=== PATIENT | female | born 1955 | race Caucasian/White ===

== ENCOUNTER 2020-10-27 06:56 | Inpatient (IN) | payer MEDICAID ==
[2020-10-27] VITALS (8 sets, daily range): BP systolic 120–157; BP diastolic 62–84
[~2020-10-27] VITALS: Ht 165.1 cm; Wt 107.0 kg
[~2020-10-27 06:56] MED LIST: ACET1TAB55; ALEN35TA54 PO; HYDR12.55 PO; LR 1,000 ML IV ONE; MULT1CAP3 PO; OMEP-218 PO; ceFAZolin SOD 2 GM in IV 1 EA IV ONE
--- OUTSIDE RECORDS SUMMARY | 2020-10-27 07:04 | CCD ---
Author Author [facility] er Organization [facility] er Address Unknown Phone Unavailable Care Team Providers Care Gage Maker Name Role Phone Marielle Salgado Unavailable PROBLEMS Type Condition ICD9-CM Code ONT11-TQ Code Onset Dates Condition S tatus SNOMED Code Notes Problem Malignant neoplasm of breast (female) C50.919 Ac tive 796272290 Problem Duodenitis without mention of hemorrhage K29.80 Active 39174707 Problem Essential hypertension I10 Active 17161393 Problem Morbid obesity E66.01 Active 886628711 Problem Carpal tunnel syndrome G56.00 Active 57251815 Problem Esophageal reflux K21.9 Active 853493087 Problem Hyperlipidemia E78.5 Active 99539596 Problem Lumbago M54.5 Active 997762150 Problem Vitamin D deficiency E55.9 Active 89281234 Problem PRASANTH (obstructive sleep apnea) G47.33 Active 78 920474 Problem Obesity E66.9 Active 471116650 Problem Adnexal cyst N94.9 Active 20831895282663 Problem Venous insufficiency of both lower extremities I87 .2 Active 353882474 Problem 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 Active 3675196 01 Problem Right kidney mass N28.89 Active 318050644 Problem Anxiety F41.9 Active 81611820 Problem Primary localized osteoarthrosis, lower leg M17.10 Active 602600949 Problem Primary osteoarthritis of left knee M17.12 Acti ve 093896181497670 Problem History of total left knee replacement Z96.652 Active 7908998665907980 Problem Right adrenal mass E27.8 Active 9951625584198 9106 Problem Right renal mass N28.89 Active 661156109 ALLERGIES No Known Allergies ENCOUNTERS from 1955 to 2020-10-22 Encounter Location Date Provider Diagnosis [place] [address] [address] Oct, Marielle Salgado Pre-op evaluation Z01.818 ; Right renal mass N28.89 ; Essential hypertension I10 and PRASANTH (obstructive sleep apnea) G47.33 IMMUNIZATIONS Vaccine Route Administration Date Status Influenza (Afluria/Fluvirin 3+ yrs) <18 yrs Unknown Jul 12, 2019 Administered SOCIAL HISTORY Tobacco Use: Social History Observation Description Date Details (start date - stop date) Never Smoker Sex Assigned At : Social History Observation Description Sex Assigned At Unknown Alcohol Screen (Audit-C) Question Answer Notes Did you have a drink containing alcohol in the past year? No Points 0 Interpretation Negative DAST-10 Question Answer Notes Total Score: 0 Interpretation: No problems reported Tobacco Use/Smoking Question Answer Notes Patient is a never smoker Tobacco use other than smoking: Question Answer Notes Are you an other tobacco user? No REASON FOR REFERRAL No Information VITAL SIGNS Height 63 in Oct, Weight 234 lbs Oct, Weight-kg 106.14 kg Oct, BMI 41.45 kg/m2 Oct, Temperature 97.8 degrees Fahrenheit Oct, Heart Rate 83 /min Oct, Respiratory Rate 18 /min Oct, Oximetry 98 % Oct, Blood pressure systolic 138 mm Hg Oct, Blood pressure diastolic 78 mm Hg Oct, MEDICATIONS Medication SIG (Take, Route, Frequency, Duration) Notes Start Da te End Date Status Calcium 600 600 MG 2 tablets Orally daily Active Alendronate Sodium 35 MG 1 tablet 30 minutes before t he first food, beverage or medicine of the day with plain water Orally for 30 day(s) Active Bipap as directed DX: PRASANTH BIPAP gaxiola pplies, F Face Mask, Nasal Mask, Headgear, Cushions, Filters and Tubing for 30 days Apr, Active Tylenol 325 MG 2 tablets as needed Orally every 4 hrs Not-Taking [place]-3 Fish Oil Concentrate [address] Oral 2 ( two) Capsule DR two times daily for 30 Oct, Active Vitamin D3 1000 UNIT 2 tablets Orally Once a day Active Multivitamin Adult - Orally Acti ve Omeprazole 20 MG 1 capsule 30 minutes before morning meal Orally twice a day for 30 days Active Hydrochlorothiazide 12.5 MG 1 tablet in the morning Or ally Once a day for 30 days Active PROCEDURES No Information RESULTS No Results REASON FOR VISIT PREOP RIGHT ROBOTIC NEPHRO -CBC BNP PT/PTT MEDICAL (GENERAL) HISTORY Type Description Date Medical History Esophageal reflux Medical History Obesity Medical History Hyperlipidemia Medical History Malignant neoplasm of breast (female) Medical History Disturbance of skin sensation Medical History Noninfectious lymphedema Medical History Carpal tunnel syndrome Medical History Duodenitis without mention of hemorrhage Medical History Pain in joint, lower leg Medical History Primary localized osteoarthrosis, lower leg Medical History Urinary tract infection Medical History Abnormal mammogram Medical History Viral infection Medical History Essential hypertension Medical History Lumbago Medical History Disorder of bone, unspecified Medical History Morbid obesity Medical History Abnormal glucose Medical History Anxiety Surgical History Hernia Repair Surgical History Breast Biopsy - Right :multiple biopsy, (+) malignancy Surgical History Tubal Ligation Surgical History Cholecystectomy Surgical History Carpal Tunnel Surgery - Right Surgical History Lumpectomy :right breast Surgical History Appendectomy Surgical History l knee replacement 08/25/2020 Hospitalization History [facility] ER fall 08/22/17 Hospitalization History [place] admit-surgery 08/25/2020 Goals Section No Information Health Concerns No Information MEDICAL EQUIPMENT No Information MENTAL STATUS No Information FUNCTIONAL STATUS No Information ASSESSMENTS Encounter Date Diagnosis Assessment Notes Treatment Notes Treatm ent Clinical Notes Oct, Pre-op evaluation (ICD-10 - Z01.818) Labs completed 10/20/20 and reviewed. CBC, BMP, PT/PTT unremarkable. EKG completed 08/14/2020, which was reviewed and shows normal sinus rhythm, rate of 70. Pending physician review, patient is medically optimized to proceed with proposed robotic nephrectomy. MD ASSESSMENT:- All labs and investigative studies reviewed. Patient is medically optimized to proceed with proposed surgery stated above by DESIRE. No further cardiac intervention is required at this time. Oct, Right renal mass (ICD-10 - N28.89) She is scheduled for right robotic nephrectomy on 10/27/[address]ro at [facility] Oct, Essential hypertension (ICD-10 - I10) Stable. Continue current treatment regimen. Oct, PRASANTH (obstructive sleep apnea) (ICD-10 - G47.33) Stable. Compliant with nightly use of CPAP with good effect Oct, Araseli frankel cribing the following service for ANTONIO Moreno on 10/21/2020 PLAN OF TREATMENT Treatment Notes Assessment Notes Clinical Notes Pre-op evaluation Labs completed 1 and reviewed. CBC, BMP, PT/PTT unremarkable. EKG completed 08/14/2020, which was reviewed and shows normal sinus rhythm, rate of 70. Pending physician review, patient is medically optimized to proceed with proposed robotic nephrectomy.MD ASSESSMENT:- All labs and investigative studies reviewed. Patient is medically optimized to proceed with proposed surgery stated above by DESIRE. No further cardiac intervention is required at this time. Right renal mass She is scheduled for right robotic nephrectomy on 10/27/[address]ro at [facility] Essential hypertension Stable. Continue current treatment regimen. PRASANTH (obstructive sleep apnea) Stable. Co mpliant with nightly use of CPAP with good effect Next Appt Details prn Reason: Provider Name:Glenn Easton, 2020-11-19 11:10:00 AM, [address] [facility], [address], [place], [address], Provider Name:Kairna Dia, 2020-11-16 6 10:30:00 AM, [address] [facility], [address], [place], [address], Insurance Providers Payer Name Payer Address Payer Phone Insured Name Patient Relati onship to Insured Coverage Start Date Coverage End Date Medicaid [address] [facility] [id number] TAL MCNALLY
--- OUTSIDE RECORDS SUMMARY | 2020-10-27 07:04 | CCD ---
Author Author [facility] Organization [facility] [employer] [facility] Address Unknown Phone Unavailable Care Team Providers Care Ribbing Machine Operator Name Role Phone Reese Guerrero Unavailable PROBLEMS Type Condition ICD9-CM Code [id number] Code Onset Dates Condition S tatus SNOMED Code Notes Problem Renal mass N28.89 Active 773817384 Problem Preop testing Z01.818 Active 906218456 ALLERGIES No Known Allergies ENCOUNTERS from 1955 to 2020-10-13 Encounter Location Date Provider Diagnosis [facility] Urology [address] [place] [address] Sep Reese Cesar Preop testing Z01.818 and Renal mass N28 .89 IMMUNIZATIONS No Information SOCIAL HISTORY Tobacco Use: Social History Observation Description Date Details (start date - stop date) Never Smoker Sex Assigned At : Social History Observation Description Sex Assigned At Unknown Language: Question Answer Notes Languages spoken: Maltese Cheondoism: Question Answer Notes Cheondoism No mu-ism beliefs that would impact health care. Alcohol Screening: Question Answer Notes Did you have a drink containing alcohol in the past year? No Points 0 Interpretation Negative Tobacco Use: Question Answer Notes Are you a: never smoker REASON FOR REFERRAL No Information VITAL SIGNS No information MEDICATIONS Medication SIG (Take, Route, Frequency, Duration) Notes Start Da te End Date Status Calcium 500 MG 2 tablet with meals Orally Daily Active Omeprazole 20 MG 1 capsule 30 minutes before morning meal Orally Once a day for 30 day(s) Active Tylenol 325 MG 1 tablet as needed Orally every 4 hrs Active [place] 3 1000 MG 1 capsule Orally Once a day for 30 day(s) Active Hydrochlorothiazide 12.5 MG 1 capsule in the morning O rally Once a day for 30 day(s) Active Vitamin D-3 25 MCG (1000 UT) 1 capsule Orally Once a day for 30 day(s ) Active Multivitamin Adults - as directed Orally Active Aspirin Adult Low Dose 81 MG 1 tablet Orally Once a day for 30 day(s) Active PROCEDURES No Information RESULTS No Results REASON FOR VISIT COVID Test MEDICAL (GENERAL) HISTORY Type Description Date Medical History gerd Medical History obesity Medical History hyperlipidemia Medical History malignant neoplasm of breast Medical History disturbance of skin sensation Medical History noninfectious lymphedema Medical History carpal tunnel syndrome Medical History duodentis without mention of hemorrhage Medical History pain in joint lower leg Medical History osteoarthrits lower leg Medical History uti Medical History abnormal mammograms Medical History htn Medical History lumbago Medical History vitamin d deficiency Medical History anxiety Surgical History hernia repair Surgical History breat biopsy- right multiple biopsy plus malignancy Surgical History tubal ligation Surgical History cholecystecomy Surgical History carpal tunnel sx right Surgical History lumpectomy Surgical History appendectomy Surgical History knee replacement left 08/2020 Hospitalization History surgery related Goals Section No Information Health Concerns No Information MEDICAL EQUIPMENT No Information MENTAL STATUS No Information FUNCTIONAL STATUS No Information ASSESSMENTS Encounter Date Diagnosis Assessment Notes Treatment Notes Treatm ent Clinical Notes Sep, Preop testing (ICD-10 - Z01.818) Sep, Renal mass (ICD-10 - N28.89) PLAN OF TREATMENT Treatment Notes Test Name Order Date COVID-19 (SARS-CoV-2) IgG Antibody Test 2020-10-13 Next Appt Details Provider Name:Reese Kirk Cesar, 02:15:00 PM, [address], [place], [address], Insurance Providers Payer Name Payer Address Payer Phone Insured Name Patient Relati onship to Insured Coverage Start Date Coverage End Date MEDICAID [employer] [address] [facility] [id number] DANNIELLE RODRÍGUEZ self
--- OUTSIDE RECORDS SUMMARY | 2020-10-27 07:04 | CCD ---
Author Author [facility] Organization [facility] [email or web address] [facility] Address Unknown Phone Unavailable Care Team Providers Care Engineering Secretary Name Role Phone Reese Guerrero Unavailable PROBLEMS Type Condition ICD9-CM Code LBO67-RD Code Onset Dates Condition S tatus SNOMED Code Notes Problem Renal mass N28.89 Active 649120194 Problem Preop testing Z01.818 Active 991721569 ALLERGIES No Known Allergies ENCOUNTERS from 1955 to 2020-10-13 Encounter Location Date Provider Diagnosis [facility] Urology [address] [place] [address] Sep Reese Cesar Preop testing Z01.818 and Renal mass N28 .89 IMMUNIZATIONS No Information SOCIAL HISTORY Tobacco Use: Social History Observation Description Date Details (start date - stop date) Never Smoker Sex Assigned At : Social History Observation Description Sex Assigned At Unknown Language: Question Answer Notes Languages spoken: Mosotho Temple: Question Answer Notes Temple No zoroastrianism beliefs that would impact health care. Alcohol [...] as needed Orally every 4 hrs Active [place] 3 1000 MG 1 capsule Orally Once [...] RESULTS No Results REASON FOR VISIT COVID test MEDICAL (GENERAL) HISTORY Type Description Date Medical [...] TREATMENT Treatment Notes Test Name Order Date Coronavirus 2019 Nasopharygeal (Send Out) COVID 2019-10 229 Next Appt Details Provider Name:Reese Kirk Cesar, 02:15:00 PM, [address], [place], [address], Insurance Providers Payer Name Payer Address Payer Phone Insured Name Patient Relati onship to Insured Coverage Start Date Coverage End Date MEDICAID [place] [address] [facility] [id number] DANNIELLE RODRÍGUEZ self
--- OUTSIDE RECORDS SUMMARY | 2020-10-27 07:04 | CCD ---
Author Author [facility] er Organization [facility] er Address Unknown Phone Unavailable Care Team Providers Care Assisted Living Manager Name Role Phone Glenn Easton Unavailable PROBLEMS Type Condition ICD9-CM Code [id number] Code Onset Dates Condition S tatus SNOMED Code Notes Problem Duodenitis without mention of hemorrhage K29.80 Active 80438583 Problem Primary localized osteoarthrosis, lower leg M17.10 Active 135664263 Problem Morbid obesity E66.01 Active 622154432 Problem Malignant neoplasm of breast (female) C50.919 Ac tive 818076147 Problem Esophageal reflux K21.9 Active 683069766 Problem Essential hypertension I10 Active 72289427 Problem Lumbago M54.5 Active 095047906 Problem Carpal tunnel syndrome G56.00 Active 65685989 Problem Venous insufficiency of both lower extremities I87 .2 Active 107150597 Problem Vitamin D deficiency E55.9 Active 97573755 Problem PRASANTH (obstructive sleep apnea) G47.33 Active 78 458300 Problem Adnexal cyst N94.9 Active 06912686890864 Problem Anxiety F41.9 Active 91541721 Problem Right renal mass N28.89 Active 245643092 Problem Hyperlipidemia E78.5 Active 95441507 Problem 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 Active 9337710 01 Problem Obesity E66.9 Active 132625887 Problem Primary osteoarthritis of left knee M17.12 Acti ve 719573755918344 Problem History of total left knee replacement Z96.652 Active 7508777634335158 Problem Right adrenal mass E27.8 Active 3299898550429 9106 ALLERGIES No Known Allergies ENCOUNTERS from 1955 to 2020-10-12 Encounter Location Date Provider Diagnosis [facility] [address] [facility] [address] [place] [address] Sep, Glenn Easton IMMUNIZATIONS Vaccine Route Administration Date Status Influenza [...] Notes Start Da te End Date Status Bipap as directed DX: PRASANTH BIPAP gaxiola pplies, F Face Mask, Nasal Mask, Headgear, Cushions, Filters and Tubing for 30 days Apr, Active Hydrochlorothiazide 12.5 MG 1 tablet in the morning Or ally Once a day for 30 days Active Omeprazole 20 MG 1 capsule 30 minutes before morning meal Orally twice a day for 30 days Active [place]-3 Fish Oil Concentrate [address] Oral 2 ( two) Capsule DR two times daily for 30 Oct, Active Multivitamin Adult - Orally Acti ve Vitamin D3 1000 UNIT 2 tablets Orally Once a day Active Tylenol 325 MG 2 tablets as needed Orally every 4 hrs Active Calcium 600 600 MG 2 tablets Orally daily Active PROCEDURES No Information RESULTS No Results REASON FOR VISIT No Information MEDICAL (GENERAL) HISTORY Type Description Date Medical [...] History l knee replacement 08/25/2020 Hospitalization History [facility] ER fall 08/22/17 Hospitalization History [place] admit-surgery 08/25/2020 Goals Section No Information Health Concerns No Information MEDICAL EQUIPMENT No Information MENTAL STATUS No Information FUNCTIONAL STATUS No Information ASSESSMENTS No Information PLAN OF TREATMENT Next Appt Details Provider Name:Glenn Easton, 2020-11-19 11:10:00 AM, [address] [facility], [address], [place], [address], Insurance Providers Payer Name Payer Address Payer Phone Insured Name Patient Relati onship to Insured Coverage Start Date Coverage End Date Medicaid [address] [facility] [id number] TAL MCNALLY self
--- OUTSIDE RECORDS SUMMARY | 2020-10-27 07:05 | CCD ---
Author Author [facility] er Organization [facility] er Address Unknown Phone Unavailable Care Team Providers Care Ingot Buggy Operator Name Role Phone Glenn Easton Unavailable PROBLEMS Type Condition ICD9-CM Code AAL87-FD Code Onset Dates Condition S tatus SNOMED Code Notes Problem Duodenitis without mention of hemorrhage K29.80 Active 56454491 Problem Primary localized osteoarthrosis, lower leg M17.10 Active 263890904 Problem Morbid obesity E66.01 Active 394861175 Problem Malignant neoplasm of breast (female) C50.919 Ac tive 473372757 Problem Esophageal reflux K21.9 Active 931612080 Problem Essential hypertension I10 Active 80620864 Problem Lumbago M54.5 Active 665748922 Problem Carpal tunnel syndrome G56.00 Active 58922283 Problem Venous insufficiency of both lower extremities I87 .2 Active 880016589 Problem Vitamin D deficiency E55.9 Active 80498095 Problem PRASANTH (obstructive sleep apnea) G47.33 Active 78 599440 Problem Adnexal cyst N94.9 Active 34311938284548 Problem Anxiety F41.9 Active 59950077 Problem Right renal mass N28.89 Active 722432133 Problem Hyperlipidemia E78.5 Active 21290738 Problem 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 Active 8021149 01 Problem Obesity E66.9 Active 450849888 Problem Primary osteoarthritis of left knee M17.12 Acti ve 604999448244514 Problem History of total left knee replacement Z96.652 Active 8828718682761721 Problem Right adrenal mass E27.8 Active 4108995958756 9106 ALLERGIES No Known Allergies ENCOUNTERS from 1955 to 2020-10-12 Encounter Location Date Provider Diagnosis [facility] [address] [facility] [address] [place] [address] Sep, Glenn Easton History of total left knee r eplacement Z96.652 IMMUNIZATIONS Vaccine Route Administration Date Status Influenza [...] No Information VITAL SIGNS Height 63 in Sep, Weight 236 lbs Sep, BMI 41.80 kg/m2 Sep, Temperature 97.7 degrees Fahrenheit Sep, Heart Rate 82 /min Sep, Respiratory Rate 18 /min Sep, Oximetry 99 % Sep, Blood pressure systolic 120 mm Hg Sep, Blood pressure diastolic 60 mm Hg Sep, MEDICATIONS Medication SIG (Take, Route, Frequency, Duration) [...] twice a day for 30 days Active [place]-3 Fish Oil Concentrate [address] Oral [...] Information RESULTS No Results REASON FOR VISIT S/p L TKA, has been following in [facility] MEDICAL (GENERAL) HISTORY Type Description Date Medical [...] History l knee replacement 08/25/2020 Hospitalization History [facility] ER fall 08/22/17 Hospitalization History [place] admit-surgery 08/25/2020 Goals Section No Information Health Concerns No Information MEDICAL EQUIPMENT No Information MENTAL STATUS No Information FUNCTIONAL STATUS No Information ASSESSMENTS Encounter Date Diagnosis Assessment Notes Treatment Notes Treatm ent Clinical Notes Sep, History of total left knee replacement (ICD-10 - Z96.652) PLAN OF TREATMENT Treatment Notes Test Name Order Date X Ray Knee Complete 2020-10-12 Next Appt Details Provider Name:Glenn Rustam 2020-11-19 11:10:00 AM, [address] [facility], [address], [place], [address], Insurance Providers Payer Name Payer Address Payer Phone Insured Name Patient Relati onship to Insured Coverage Start Date Coverage End Date Medicaid [address] [facility] [id number] TAL MCNALLY
--- OUTSIDE RECORDS SUMMARY | 2020-10-27 07:05 | CCD ---
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 Active 8770968 01 Problem Malignant neoplasm of breast (female) C50.919 Ac tive 010606259 Problem Duodenitis without mention of hemorrhage K29.80 Active 72136523 Problem Essential hypertension I10 Active 40331788 Problem Morbid obesity E66.01 Active 518399594 Problem Carpal tunnel syndrome G56.00 Active 77002580 Problem Esophageal reflux K21.9 Active 537941273 Problem Anxiety F41.9 Active 67381199 Problem Venous insufficiency of both lower extremities I87 .2 Active 050330477 Problem Vitamin D deficiency E55.9 Active 21758801 Problem Adnexal cyst N94.9 Active 31824560243533 Problem Hyperlipidemia E78.5 Active 78829974 Problem Right renal mass N28.89 Active 613357442 Problem Lumbago M54.5 Active 941708960 Problem PRASANTH (obstructive sleep apnea) G47.33 Active 78 859559 Problem Obesity E66.9 Active 484069727 Problem Primary osteoarthritis of left knee M17.12 Acti ve 905623283375347 Problem Right adrenal mass E27.8 Active 1907885049741 9106 ALLERGIES No Known Allergies ENCOUNTERS from 1955 to 2020-09-19 Encounter Location Date Provider Diagnosis [facility] Medicine [address] [facility] [address] [place] [address] Sep, Marielle Salgado IMMUNIZATIONS Vaccine Route Administration Date Status Influenza [...] Notes Start Da te End Date Status Hydrochlorothiazide 12.5 MG 1 tablet in the morning Or ally Once a day for 30 days Active Multivitamin Adult - Orally Acti ve [place]-3 Fish Oil Concentrate [address] Oral 2 ( two) Capsule DR two times daily for 30 Oct, Active Aspirin Adult Low Strength 81 MG 1 tablet Orally Once a day for 30 da y(s) Active Vitamin D3 1000 UNIT 2 tablets Orally Once a day Active Omeprazole 20 MG 1 capsule 30 minutes before morning meal Orally twice a day for 30 days Active Bipap as directed DX: PRASANTH BIPAP gaxiola pplies, F Face Mask, Nasal Mask, Headgear, Cushions, Filters and Tubing for 30 days Apr, Active Tylenol 325 MG 2 tablets as needed Orally every 4 hrs Active Calcium 600 600 MG 2 tablets Orally daily Active PROCEDURES No Information RESULTS No Results REASON FOR VISIT apt date & time MEDICAL (GENERAL) HISTORY Type Description Date Medical [...] History Appendectomy Surgical History l knee replacement Hospitalization History [facility] ER fall 08/22/17 Hospitalization History [place] admit-surgery 08/25/2020 Goals Section No Information Health Concerns No Information MEDICAL EQUIPMENT No Information MENTAL STATUS No Information FUNCTIONAL STATUS No Information ASSESSMENTS No Information PLAN OF TREATMENT Next Appt Details Provider Name:Glenn Easton 2020-10-02 11:10:00 AM, [address] [facility], [address], [place], [address], Insurance Providers Payer Name Payer Address Payer Phone Insured Name Patient Relati onship to Insured Coverage Start Date Coverage End Date Medicaid [address] [facility] [id number] TAL MCNALLY self
--- OUTSIDE RECORDS SUMMARY | 2020-10-27 07:05 | CCD ---
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 Active 0591377 01 Problem Malignant neoplasm of breast (female) C50.919 Ac tive 542655385 Problem Duodenitis without mention of hemorrhage K29.80 Active 53314547 Problem Essential hypertension I10 Active 55672080 Problem Morbid obesity E66.01 Active 874714702 Problem Lumbago M54.5 Active 175574821 Problem Hyperlipidemia E78.5 Active 57289884 Problem Anxiety F41.9 Active 60801428 Problem Primary osteoarthritis of left knee M17.12 Acti ve 445040919862501 Problem Carpal tunnel syndrome G56.00 Active 72478832 Problem Right adrenal mass E27.8 Active 4157378461029 9106 Problem Esophageal reflux K21.9 Active 754402093 Problem Venous insufficiency of both lower extremities I87 .2 Active 313835095 Problem Vitamin D deficiency E55.9 Active 16319025 Problem PRASANTH (obstructive sleep apnea) G47.33 Active 78 341643 Problem Obesity E66.9 Active 485858440 ALLERGIES No Known Allergies ENCOUNTERS from 1955 to 2020-09-15 Encounter Location Date Provider Diagnosis [facility] Internal Medicine [address] [facility] [address] [place] [phone] Aug, Marielle Salgado Right adrenal mass E 27.8 IMMUNIZATIONS Vaccine Route Administration Date Status Influenza [...] Notes Start Da te End Date Status [place]-3 Fish Oil Concentrate [address] Oral 2 ( two) Capsule DR two times daily for 30 Oct, Active Alendronate Sodium 35 MG 1 tablet Orally weekly Not-Taking Vitamin D3 1000 UNIT 2 tablets Orally Once a day Active Calcium 600 600 MG 2 tablets Orally daily Active Multivitamin Adult - Orally Acti ve Colace 100 MG 1 capsule as needed Orally twice a day as needed Active Oxycodone HCl 5 MG 1-2 tablet as needed Orally every 4-6 hrs PRN for PAIN Active Tylenol 325 MG 2 tablets as needed Orally every 4 hrs Active Aspirin Adult Low Strength 81 MG 1 tablet Orally Once a day for 30 da y(s) Active Hydrochlorothiazide 12.5 MG 1 tablet in the morning Or ally Once a day for 30 days Active Celebrex 200 MG 1 capsule with food Orally Twice a day Active Bipap as directed DX: PRASANTH BIPAP gaxiola pplies, F Face Mask, Nasal Mask, Headgear, Cushions, Filters and Tubing for 30 days Apr, Active Omeprazole 20 MG 1 capsule 30 minutes before morning meal Orally twice a day for 30 days Active PROCEDURES No Information RESULTS No Results REASON FOR VISIT Test results MEDICAL (GENERAL) HISTORY Type Description Date Medical [...] Surgical History l knee replacement Hospitalization History [facility] ER fall 08/22/17 Hospitalization History [place] admit-surgery 08/25/2020 Goals Section No Information Health Concerns No Information MEDICAL EQUIPMENT No Information MENTAL STATUS No Information FUNCTIONAL STATUS No Information ASSESSMENTS Encounter Date Diagnosis Assessment Notes Treatment Notes Treatm ent Clinical Notes Aug, Right adrenal mass (ICD-10 - E27.8) PLAN OF TREATMENT Treatment Notes Test Name Order Date US Kidney Renal - [id number] 2020-09-15 Next Appt Details Provider Name:Glenn Rustam 2020-10-02 11:10:00 AM, [address] [facility], [address], [place], [address], Insurance Providers Payer Name Payer Address Payer Phone Insured Name Patient Relati onship to Insured Coverage Start Date Coverage End Date Medicaid [address] [facility] [id number] TAL MCNALLY self
--- OUTSIDE RECORDS SUMMARY | 2020-10-27 07:05 | CCD ---
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 Active 8750738 01 Problem Malignant neoplasm of breast (female) C50.919 Ac tive 422845846 Problem Duodenitis without mention of hemorrhage K29.80 Active 98035031 Problem Essential hypertension I10 Active 96832080 Problem Morbid obesity E66.01 Active 779797674 Problem Carpal tunnel syndrome G56.00 Active 37473085 Problem Esophageal reflux K21.9 Active 755649107 Problem Anxiety F41.9 Active 30971024 Problem Venous insufficiency of both lower extremities I87 .2 Active 188399863 Problem Vitamin D deficiency E55.9 Active 34352674 Problem Adnexal cyst N94.9 Active 24828296812660 Problem Hyperlipidemia E78.5 Active 07440430 Problem Right renal mass N28.89 Active 071474679 Problem Lumbago M54.5 Active 709349499 Problem PRASANTH (obstructive sleep apnea) G47.33 Active 78 787690 Problem Obesity E66.9 Active 210545965 Problem Primary osteoarthritis of left knee M17.12 Acti ve 833965082908816 Problem Right adrenal mass E27.8 Active 7680882090540 9106 ALLERGIES No Known Allergies ENCOUNTERS from 1955 to 2020-09-18 Encounter Location Date Provider Diagnosis [facility] 3 [facility] [address] [place] [phone] Sep, Marielle Salgado IMMUNIZATIONS Vaccine Route Administration [...] Active Multivitamin Adult - Orally Acti ve [place]-3 Fish Oil Concentrate [address] Oral [...] Surgical History l knee replacement Hospitalization History [facility] ER fall 08/22/17 Hospitalization History [place] admit-surgery 08/25/2020 Goals Section No Information Health Concerns No Information MEDICAL EQUIPMENT No Information MENTAL STATUS No Information FUNCTIONAL STATUS No Information ASSESSMENTS No Information PLAN OF TREATMENT Next Appt Details Provider Name:Glenn Easton 2020-10-02 11:10:00 AM, 3 [facility], [address], [place], [address], Insurance Providers Payer Name Payer Address Payer Phone Insured Name Patient Relati onship to Insured Coverage Start Date Coverage End Date Medicaid [address] [place] [id number] TAL MCNALLY self
--- OUTSIDE RECORDS SUMMARY | 2020-10-27 07:05 | CCD ---
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 Active 6727914 01 Problem Duodenitis without mention of hemorrhage K29.80 Active 43321184 Problem Primary localized osteoarthrosis, lower leg M17.10 Active 850379957 Problem Morbid obesity E66.01 Active 795976388 Problem Malignant neoplasm of breast (female) C50.919 Ac tive 155190607 Problem Carpal tunnel syndrome G56.00 Active 49012556 Problem Lumbago M54.5 Active 560712916 Problem Hyperlipidemia E78.5 Active 14699785 Problem Obesity E66.9 Active 309328342 Problem Esophageal reflux K21.9 Active 720894656 Problem Primary osteoarthritis of left knee M17.12 Acti ve 835511956736749 Problem Essential hypertension I10 Active 14108751 Problem Anxiety F41.9 Active 83377889 Problem Venous insufficiency of both lower extremities I87 .2 Active 578329226 Problem Vitamin D deficiency E55.9 Active 47913321 Problem PRASANTH (obstructive sleep apnea) G47.33 Active 78 012954 ALLERGIES No Known Allergies ENCOUNTERS from 1955 to 2020-09-03 Encounter Location Date Provider Diagnosis [facility] Internal Medicine 3 [facility] [address] [place] [phone] Aug, Marielle Salgado IMMUNIZATIONS Vaccine Route Administration Date [...] Notes Start Da te End Date Status [place]-3 Fish Oil Concentrate [address] Oral [...] Information RESULTS No Results REASON FOR VISIT Telephone appt MEDICAL (GENERAL) HISTORY Type Description Date Medical [...] Surgical History l knee replacement Hospitalization History [facility] ER fall 08/22/17 Hospitalization History [place] admit-surgery 08/25/2020 Goals Section No Information Health Concerns No Information MEDICAL EQUIPMENT No Information MENTAL STATUS No Information FUNCTIONAL STATUS No Information ASSESSMENTS No Information PLAN OF TREATMENT No Information Insurance Providers Payer Name Payer Address Payer Phone Insured Name Patient Relati onship to Insured Coverage Start Date Coverage End Date Medicaid [address] [place] [id number] TAL MCNALLY self
--- OUTSIDE RECORDS SUMMARY | 2020-10-27 07:05 | CCD ---
Author Author [facility]y [place] 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 Active 6619263 01 Problem Duodenitis without mention of hemorrhage K29.80 Active 10366431 Problem Primary localized osteoarthrosis, lower leg M17.10 Active 791382824 Problem Morbid obesity E66.01 Active 612848485 Problem Malignant neoplasm of breast (female) C50.919 Ac tive 013654326 Problem Carpal tunnel syndrome G56.00 Active 36305614 Problem Lumbago M54.5 Active 390754137 Problem Hyperlipidemia E78.5 Active 58563951 Problem Obesity E66.9 Active 119407432 Problem Esophageal reflux K21.9 Active 407438338 Problem Primary osteoarthritis of left knee M17.12 Acti ve 665023717498792 Problem Essential hypertension I10 Active 28874527 Problem Anxiety F41.9 Active 76056891 Problem Venous insufficiency of both lower extremities I87 .2 Active 197515390 Problem Vitamin D deficiency E55.9 Active 33582481 Problem PRASANTH (obstructive sleep apnea) G47.33 Active 78 501744 ALLERGIES No Known Allergies ENCOUNTERS from 1955 to 2020-08-28 Encounter Location Date Provider Diagnosis [facility] Internal Medicine 3 [facility] [address] [place] [phone] Aug, Marielle Salgado IMMUNIZATIONS Vaccine Route Administration [...] MEDICATIONS Medication SIG (Take, Route, Frequency, Duration) Start Date En d Date Status Calcium 600 600 MG 2 tablets Orally daily Active Celebrex 200 MG 1 capsule with food Orally Twice a day Active Tylenol 325 MG 2 tablets as needed Orally every 4 hrs Active Aspirin Adult Low Strength 81 MG 1 tablet Orally Once a day for 30 day(s) Active Omeprazole 20 MG 1 capsule 30 minutes before morning meal Orally twice a day for 30 days Active Vitamin D3 1000 UNIT 2 tablets Orally Once a day Active Alendronate Sodium 35 MG 1 tablet Orally weekly Not-Taking Colace 100 MG 1 capsule as needed Orally twice a day as needed Active Bipap as directed DX: PRASANTH BIPAP gaxiola pplies, F Face Mask, Nasal Mask, Headgear, Cushions, Filters and Tubing for 30 days Apr, Active Oxycodone HCl 5 MG 1-2 tablet as needed Orally every 4-6 hrs PRN fo r PAIN Active Multivitamin Adult - Orally Active Hydrochlorothiazide 12.5 MG 1 tablet in the morning Or ally Once a day for 30 days Active [place]-3 Fish Oil Concentrate [address] Oral 2 ( two) Capsule DR two times daily for 30 Oct, Active PROCEDURES No Information RESULTS No Results REASON FOR VISIT Transitional Care Management MEDICAL (GENERAL) HISTORY Type Description Date Medical [...] History Lumpectomy :right breast Surgical History Appendectomy Hospitalization History [facility] ER fall 08/22/17 Goals Section No Information Health Concerns No Information MEDICAL EQUIPMENT No Information MENTAL STATUS No Information FUNCTIONAL STATUS No Information ASSESSMENTS No Information PLAN OF TREATMENT Next Appt Details Provider Name:Marielle Salgado, 2020-08 09:30:00 AM, 3 [facility], [address], [place], [address], Insurance Providers Payer Name Payer Address Payer Phone Insured Name Patient Relati onship to Insured Coverage Start Date Coverage End Date Medicaid [address] [facility] [id number] TAL MCNALLY self
--- OUTSIDE RECORDS SUMMARY | 2020-10-27 07:05 | CCD ---
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 Active 2316365 01 Problem Malignant neoplasm of breast (female) C50.919 Ac tive 281538064 Problem Duodenitis without mention of hemorrhage K29.80 Active 54214775 Problem Essential hypertension I10 Active 49138648 Problem Morbid obesity E66.01 Active 368601760 Problem Carpal tunnel syndrome G56.00 Active 67314825 Problem Esophageal reflux K21.9 Active 382301423 Problem Anxiety F41.9 Active 01378678 Problem Venous insufficiency of both lower extremities I87 .2 Active 618137492 Problem Vitamin D deficiency E55.9 Active 21658619 Problem Adnexal cyst N94.9 Active 61921154629308 Problem Hyperlipidemia E78.5 Active 61397111 Problem Right renal mass N28.89 Active 566700765 Problem Lumbago M54.5 Active 093235446 Problem PRASANTH (obstructive sleep apnea) G47.33 Active 78 869455 Problem Obesity E66.9 Active 723516534 Problem Primary osteoarthritis of left knee M17.12 Acti ve 596268763118325 Problem Right adrenal mass E27.8 Active 5968001607384 9106 ALLERGIES No Known Allergies ENCOUNTERS from 1955 to 2020-09-29 Encounter Location Date Provider Diagnosis [facility] [address] [place] [address] [place] [phone] Sep, Glenn Easton IMMUNIZATIONS Vaccine Route Administration [...] Active Multivitamin Adult - Orally Acti ve [place]-3 Fish Oil Concentrate [address] Oral [...] Information RESULTS No Results REASON FOR VISIT upcoming appt MEDICAL (GENERAL) HISTORY Type Description Date [...] Surgical History l knee replacement Hospitalization History [facility] ER fall 08/22/17 Hospitalization History [place] admit-surgery 08/25/2020 Goals Section No Information Health Concerns No Information MEDICAL EQUIPMENT No Information MENTAL STATUS No Information FUNCTIONAL STATUS No Information ASSESSMENTS No Information PLAN OF TREATMENT Next Appt Details Provider Name:Glenn Easton, 2020-10-01 03:00:00 PM, 3 [facility], [address], [place], [address], Insurance Providers Payer Name Payer Address Payer Phone Insured Name Patient Relati onship to Insured Coverage Start Date Coverage End Date Medicaid [address] [facility] [id number] TAL MCNALLY self
--- OUTSIDE RECORDS SUMMARY | 2020-10-27 07:05 | CCD ---
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 Active 1089985 01 Problem Malignant neoplasm of breast (female) C50.919 Ac tive 160177325 Problem Duodenitis without mention of hemorrhage K29.80 Active 00237808 Problem Essential hypertension I10 Active 89091866 Problem Morbid obesity E66.01 Active 938145962 Problem Carpal tunnel syndrome G56.00 Active 47829351 Problem Esophageal reflux K21.9 Active 864203159 Problem Anxiety F41.9 Active 22998994 Problem Venous insufficiency of both lower extremities I87 .2 Active 402883521 Problem Vitamin D deficiency E55.9 Active 27450125 Problem Adnexal cyst N94.9 Active 65123673311208 Problem Hyperlipidemia E78.5 Active 19130904 Problem Right renal mass N28.89 Active 086463590 Problem Lumbago M54.5 Active 431217322 Problem PRASANTH (obstructive sleep apnea) G47.33 Active 78 857311 Problem Obesity E66.9 Active 418583079 Problem Primary osteoarthritis of left knee M17.12 Acti ve 593695422056297 Problem Right adrenal mass E27.8 Active 9038764497586 9106 ALLERGIES No Known Allergies ENCOUNTERS from 1955 to 2020-09-22 Encounter Location Date Provider Diagnosis [facility] Internal Medicine 3 [facility] [address] [place] [phone] Sep, Marielle Salgado IMMUNIZATIONS Vaccine Route Administration [...] Active Multivitamin Adult - Orally Acti ve [place]-3 Fish Oil Concentrate [address] Oral [...] Information RESULTS No Results REASON FOR VISIT MRI MEDICAL (GENERAL) HISTORY Type Description Date Medical [...] Surgical History l knee replacement Hospitalization History [facility] ER fall 08/22/17 Hospitalization History [place] admit-surgery 08/25/2020 Goals Section No Information Health Concerns No Information MEDICAL EQUIPMENT No Information MENTAL STATUS No Information FUNCTIONAL STATUS No Information ASSESSMENTS No Information PLAN OF TREATMENT Next Appt Details Provider Name:Glenn Easton 2020-10-02 11:10:00 AM, 3 [facility], [address], [place], [address], Insurance Providers Payer Name Payer Address Payer Phone Insured Name Patient Relati onship to Insured Coverage Start Date Coverage End Date Medicaid [address] [facility] [id number] TAL MCNALLY self
--- OUTSIDE RECORDS SUMMARY | 2020-10-27 07:05 | CCD ---
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 Active 7655089 01 Problem Malignant neoplasm of breast (female) C50.919 Ac tive 270341385 Problem Duodenitis without mention of hemorrhage K29.80 Active 55136779 Problem Essential hypertension I10 Active 86506733 Problem Morbid obesity E66.01 Active 563342027 Problem Carpal tunnel syndrome G56.00 Active 99139759 Problem Esophageal reflux K21.9 Active 256120685 Problem Anxiety F41.9 Active 73714700 Problem Venous insufficiency of both lower extremities I87 .2 Active 237743627 Problem Vitamin D deficiency E55.9 Active 37409228 Problem Adnexal cyst N94.9 Active 72840229814681 Problem Hyperlipidemia E78.5 Active 85950660 Problem Right renal mass N28.89 Active 875163879 Problem Lumbago M54.5 Active 227291665 Problem PRASANTH (obstructive sleep apnea) G47.33 Active 78 118248 Problem Obesity E66.9 Active 166556059 Problem Primary osteoarthritis of left knee M17.12 Acti ve 259231985977401 Problem Right adrenal mass E27.8 Active 6248279998415 9106 ALLERGIES No Known Allergies ENCOUNTERS from 1955 to 2020-09-25 Encounter Location Date Provider Diagnosis [facility] Internal Medicine 3 [facility] [address] [place] [phone] Sep, Marielle Salgado Adnexal cyst N94.9 IMMUNIZATIONS Vaccine Route Administration Date Status Influenza [...] Active Multivitamin Adult - Orally Acti ve [place]-3 Fish Oil Concentrate [address] Oral [...] Surgical History l knee replacement Hospitalization History [facility] ER fall 08/22/17 Hospitalization History [place] admit-surgery 08/25/2020 Goals Section No Information Health Concerns No Information MEDICAL EQUIPMENT No Information MENTAL STATUS No Information FUNCTIONAL STATUS No Information ASSESSMENTS Encounter Date Diagnosis Assessment Notes Treatment Notes Treatm ent Clinical Notes Sep, Adnexal cyst (ICD-10 - N94.9) PLAN OF TREATMENT Next Appt Details Provider Name:Glenn Rustam 2020-10-02 11:10:00 AM, 3 [facility], [address], [place], [address], Insurance Providers Payer Name Payer Address Payer Phone Insured Name Patient Relati onship to Insured Coverage Start Date Coverage End Date Medicaid [address] [facility] [id number] TAL MCNALLY self
--- OUTSIDE RECORDS SUMMARY | 2020-10-27 07:05 | CCD ---
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 Active 7581619 01 Problem Duodenitis without mention of hemorrhage K29.80 Active 96900364 Problem Primary localized osteoarthrosis, lower leg M17.10 Active 596160656 Problem Morbid obesity E66.01 Active 545658305 Problem Malignant neoplasm of breast (female) C50.919 Ac tive 840233823 Problem Carpal tunnel syndrome G56.00 Active 16620945 Problem Lumbago M54.5 Active 352970722 Problem Hyperlipidemia E78.5 Active 61753379 Problem Obesity E66.9 Active 629392156 Problem Esophageal reflux K21.9 Active 597901264 Problem Primary osteoarthritis of left knee M17.12 Acti ve 838487910830991 Problem Essential hypertension I10 Active 38267053 Problem Anxiety F41.9 Active 87030636 Problem Venous insufficiency of both lower extremities I87 .2 Active 563589584 Problem Vitamin D deficiency E55.9 Active 99926785 Problem PRASANTH (obstructive sleep apnea) G47.33 Active 78 207208 ALLERGIES No Known Allergies ENCOUNTERS from 1955 to 2020-09-06 Encounter Location Date Provider Diagnosis [facility] Internal Medicine [address] [facility] [address] [place] [address] Aug, Marielle Salgado Primary osteoarthrit is of left knee M17.12 ; Prediabetes R73.03 ; Hyperlipidemia E78.5 ; Essential hypertension I10 ; PRASANTH (obstructive sleep apnea) G47.33 and Vitamin D deficiency E55.9 IMMUNIZATIONS Vaccine Route Administration Date Status Influenza [...] Notes Start Da te End Date Status [place]-3 Fish Oil Concentrate [address] Oral [...] Information RESULTS No Results REASON FOR VISIT TCM; 8 month f/u MEDICAL (GENERAL) HISTORY Type Description Date Medical [...] History l knee replacement Hospitalization History [facility] ER fall 08/22/17 Hospitalization History [place] admit-surgery 08/25/2020 Goals Section No Information Health Concerns No Information MEDICAL EQUIPMENT No Information MENTAL STATUS No Information FUNCTIONAL STATUS No Information ASSESSMENTS Encounter Date Diagnosis Assessment Notes Treatment Notes Treatm ent Clinical Notes Aug, Primary osteoarthritis of left knee (ICD-10 - M1 7.12) S/p left knee total arthroplasty. Recent hospital records reviewed. Aug, Prediabetes (ICD-10 - R73.03) Stable. A1c 5.8%. Advised on low carbohydrate diet and weight loss Aug, Hyperlipidemia (ICD-10 - E78.5) Stable. Currently diet controlled. Advised to continue low cholesterol diet and advised on weight loss Aug, Essential hypertension (ICD-10 - I10) Stable. Currently diet controlled. Advised on lifestyle and dietary modification (DASH diet) Aug, PRASANTH (obstructive sleep apnea) (ICD-10 - G47.33) Patient reports nightly compliance with BiPAP and uses BiPAP for at least 6 hours per night. Her usage was reviewed. She does report improvement in sleep quality and in daytime fatigue Aug, Vitamin D deficiency (ICD-10 - E55.9) Stable. Continue current treatment regimen PLAN OF TREATMENT Treatment Notes Assessment Notes Clinical Notes Primary osteoarthritis of left knee S/p left knee total arthroplasty. Recent hospital records reviewed. Prediabetes Stable. A1c 5.8%. Ad vised on low carbohydrate diet and weight loss Hyperlipidemia Stable. Currently di et controlled. Advised to continue low cholesterol diet and advised on weight loss Essential hypertension Stable. Currently diet controlled. Advised on lifestyle and dietary modification (DASH diet) PRASANTH (obstructive sleep apnea) Patient re ports nightly compliance with BiPAP and uses BiPAP for at least 6 hours per night. Her usage was reviewed. She does report improvement in sleep quality and in daytime fatigue Vitamin D deficiency Stable. Continue cu rrent treatment regimen Future Test Test Name Order Date CBC 94973812 CMP COMPREHENSIVE METABOLIC PROFILE 68517327 LIPID PROFILE 15934781 TSH Thyroid Stimulating Hormone 87680352 URINALYSIS 03717294 VITAMIN D25 52882908 HEMOGLOBIN A1C 56999951 Next Appt Details 6 Months Reason: Insurance Providers Payer Name Payer Address Payer Phone Insured Name Patient Relati onship to Insured Coverage Start Date Coverage End Date Medicaid [address] [facility] [id number] TAL MCNALLY self
--- OUTSIDE RECORDS SUMMARY | 2020-10-27 07:05 | CCD ---
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 Active 1881662 01 Problem Malignant neoplasm of breast (female) C50.919 Ac tive 466680924 Problem Duodenitis without mention of hemorrhage K29.80 Active 38367161 Problem Essential hypertension I10 Active 65466273 Problem Morbid obesity E66.01 Active 434334176 Problem Lumbago M54.5 Active 062035664 Problem Hyperlipidemia E78.5 Active 20461950 Problem Anxiety F41.9 Active 01509670 Problem Primary osteoarthritis of left knee M17.12 Acti ve 861284616803397 Problem Carpal tunnel syndrome G56.00 Active 45973126 Problem Right adrenal mass E27.8 Active 4616905484416 9106 Problem Esophageal reflux K21.9 Active 581894763 Problem Venous insufficiency of both lower extremities I87 .2 Active 794061274 Problem Vitamin D deficiency E55.9 Active 28888633 Problem PRASANTH (obstructive sleep apnea) G47.33 Active 78 686017 Problem Obesity E66.9 Active 787416920 ALLERGIES No Known Allergies ENCOUNTERS from 1955 to 2020-09-14 Encounter Location Date Provider Diagnosis [facility] [address] [facility] [address] [place] [address] Aug, Glenn Easton IMMUNIZATIONS Vaccine Route Administration Date [...] Notes Start Da te End Date Status [place]-3 Fish Oil Concentrate [address] Oral [...] Information RESULTS No Results REASON FOR VISIT Appointment MEDICAL (GENERAL) HISTORY Type Description Date Medical [...] Surgical History l knee replacement Hospitalization History [facility] ER fall 08/22/17 Hospitalization History [place] admit-surgery 08/25/2020 Goals Section No Information Health Concerns No Information MEDICAL EQUIPMENT No Information MENTAL STATUS No Information FUNCTIONAL STATUS No Information ASSESSMENTS No Information PLAN OF TREATMENT Next Appt Details Provider Name:Glenn Easton 2020-10-02 11:10:00 AM, [address] [facility], [address], [place], [address], Insurance Providers Payer Name Payer Address Payer Phone Insured Name Patient Relati onship to Insured Coverage Start Date Coverage End Date Medicaid [address] [facility] [id number] TAL MCNALLY
--- OUTSIDE RECORDS SUMMARY | 2020-10-27 07:05 | CCD ---
Author Author [facility] Organization [facility] [facility] Address Unknown Phone Unavailable Care Team Providers Care Marketing Content Specialist Name Role Phone CesarReese viera Unavailable PROBLEMS Type Condition ICD9-CM Code ZOG41-KB Code Onset Dates Condition S tatus SNOMED Code Notes Problem Renal mass N28.89 Active 076985554 Problem Preop testing Z01.818 Active 197306167 ALLERGIES No Known Allergies ENCOUNTERS from 1955 to 2020-10-07 Encounter Location Date Provider Diagnosis [facility] [id number] [place] [address] [facility] [place] [address] Sep Reese Guerrero IMMUNIZATIONS No Information SOCIAL HISTORY Tobacco Use: Social History Observation Description Date Details (start date - stop date) Never Smoker Sex Assigned At : Social History Observation Description Sex Assigned At Unknown Language: Question Answer Notes Languages spoken: German Alevism: Question Answer Notes Alevism No anabaptist beliefs that would impact health care. Alcohol [...] as needed Orally every 4 hrs Active [place] 3 1000 MG 1 capsule Orally Once [...] Information RESULTS No Results REASON FOR VISIT voicemail MEDICAL (GENERAL) HISTORY Type Description Date Medical [...] End Date MEDICAID [employer] [address] [facility] [id number] DANNIELLE MCNALLY
--- OUTSIDE RECORDS SUMMARY | 2020-10-27 07:05 | CCD ---
Author Author [facility] er Organization Ross[facility] er Address Unknown Phone Unavailable Care Team Providers Care Corporate Lawyer Name Role Phone Marielle Salgado Unavailable PROBLEMS Type Condition ICD9-CM Code ETA50-TE Code Onset Dates Condition S tatus SNOMED Code Notes Problem Duodenitis without mention of hemorrhage K29.80 Active 42672560 Problem Primary localized osteoarthrosis, lower leg M17.10 Active 209371871 Problem Morbid obesity E66.01 Active 038870795 Problem Malignant neoplasm of breast (female) C50.919 Ac tive 210602116 Problem Esophageal reflux K21.9 Active 897263972 Problem Essential hypertension I10 Active 21441057 Problem Lumbago M54.5 Active 500742639 Problem Carpal tunnel syndrome G56.00 Active 03198300 Problem Venous insufficiency of both lower extremities I87 .2 Active 282941053 Problem Vitamin D deficiency E55.9 Active 41352134 Problem PRASANTH (obstructive sleep apnea) G47.33 Active 78 534467 Problem Adnexal cyst N94.9 Active 35140221999202 Problem Anxiety F41.9 Active 01054529 Problem Right renal mass N28.89 Active 750417644 Problem Hyperlipidemia E78.5 Active 76443407 Problem 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 Active 4247124 01 Problem Obesity E66.9 Active 336817967 Problem Primary osteoarthritis of left knee M17.12 Acti ve 227524539344218 Problem History of total left knee replacement Z96.652 Active 3143942725546507 Problem Right adrenal mass E27.8 Active 2971757020918 9106 ALLERGIES No Known Allergies ENCOUNTERS from 1955 to 2020-10-12 Encounter Location Date [facility] [address] [facility] [address] [place] [address] Sep, Marielle Salgado IMMUNIZATIONS Vaccine Route Administration [...] twice a day for 30 days Active [place]-3 Fish Oil Concentrate [address] Oral [...] Information RESULTS No Results REASON FOR VISIT Referral Follow up MEDICAL (GENERAL) HISTORY Type Description Date Medical [...] History l knee replacement 08/25/2020 Hospitalization History [facility] ER fall 08/22/17 Hospitalization History [place] admit-surgery 08/25/2020 Goals Section No Information Health Concerns No Information MEDICAL EQUIPMENT No Information MENTAL STATUS No Information FUNCTIONAL STATUS No Information ASSESSMENTS No Information PLAN OF TREATMENT Next Appt Details Provider Name:Glenn Easton, 2020-11-19 11:10:00 AM, [address] [facility], [address], [place], [address], Insurance Providers Payer Name Payer Address Payer Phone Insured Name Patient Relati onship to Insured Coverage Start Date Coverage End Date Medicaid [address] [facility] [id number] TAL MCNALLY self
--- OUTSIDE RECORDS SUMMARY | 2020-10-27 07:05 | CCD ---
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 Active 6066851 01 Problem Malignant neoplasm of breast (female) C50.919 Ac tive 421037152 Problem Duodenitis without mention of hemorrhage K29.80 Active 95319299 Problem Essential hypertension I10 Active 86825770 Problem Morbid obesity E66.01 Active 507267383 Problem Carpal tunnel syndrome G56.00 Active 60237467 Problem Esophageal reflux K21.9 Active 455742706 Problem Anxiety F41.9 Active 46984504 Problem Venous insufficiency of both lower extremities I87 .2 Active 798544684 Problem Vitamin D deficiency E55.9 Active 07672586 Problem Adnexal cyst N94.9 Active 28045163170962 Problem Hyperlipidemia E78.5 Active 59897779 Problem Right renal mass N28.89 Active 475040232 Problem Lumbago M54.5 Active 469906377 Problem PRASANTH (obstructive sleep apnea) G47.33 Active 78 035041 Problem Obesity E66.9 Active 403342575 Problem Primary osteoarthritis of left knee M17.12 Acti ve 578160108233509 Problem Right adrenal mass E27.8 Active 6515662558186 9106 ALLERGIES No Known Allergies ENCOUNTERS from 1955 to 2020-09-23 Encounter Location Date Provider Diagnosis [facility] [address] [place] [address] 2019 Marielle Salgado IMMUNIZATIONS Vaccine Route Administration Date [...] Active Multivitamin Adult - Orally Acti ve [place]-3 Fish Oil Concentrate [address] Oral [...] Information RESULTS No Results REASON FOR VISIT appointment MEDICAL (GENERAL) HISTORY Type Description Date Medical [...] Surgical History l knee replacement Hospitalization History [facility] ER fall 08/22/17 Hospitalization History [place] admit-surgery 08/25/2020 Goals Section No Information Health Concerns No Information MEDICAL EQUIPMENT No Information MENTAL STATUS No Information FUNCTIONAL STATUS No Information ASSESSMENTS No Information PLAN OF TREATMENT Next Appt Details Provider Name:Glenn Easton 2020-10-02 11:10:00 AM, [address] [facility], [address], [place], [address], Insurance Providers Payer Name Payer Address Payer Phone Insured Name Patient Relati onship to Insured Coverage Start Date Coverage End Date Medicaid [address] [facility] [id number] TAL MCNALLY self
--- OUTSIDE RECORDS SUMMARY | 2020-10-27 07:05 | CCD ---
Author Author [facility] [place] [facility] er Organization Rossy 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 Active 2874754 01 Problem Malignant neoplasm of breast (female) C50.919 Ac tive 031310948 Problem Duodenitis without mention of hemorrhage K29.80 Active 11388283 Problem Essential hypertension I10 Active 75151870 Problem Morbid obesity E66.01 Active 333084549 Problem Carpal tunnel syndrome G56.00 Active 94855080 Problem Esophageal reflux K21.9 Active 123537975 Problem Anxiety F41.9 Active 72083072 Problem Venous insufficiency of both lower extremities I87 .2 Active 354862303 Problem Vitamin D deficiency E55.9 Active 68410204 Problem Adnexal cyst N94.9 Active 28103550436216 Problem Hyperlipidemia E78.5 Active 97241610 Problem Right renal mass N28.89 Active 138001782 Problem Lumbago M54.5 Active 796894696 Problem PRASANTH (obstructive sleep apnea) G47.33 Active 78 399684 Problem Obesity E66.9 Active 940233598 Problem Primary osteoarthritis of left knee M17.12 Acti ve 143999508269023 Problem Right adrenal mass E27.8 Active 6018278182592 9106 ALLERGIES No Known Allergies ENCOUNTERS from 1955 to 2020-09-20 Encounter Location Date Provider Diagnosis [facility] [address] [facility] [address] [place] [address] Sep, Marielle Salgado Right renal mass N28 .89 and Adnexal cyst N94.9 IMMUNIZATIONS Vaccine Route Administration [...] VITAL SIGNS Height 63 in Sep, Weight 239 lbs Sep, BMI 42.33 kg/m2 Sep, Temperature 96 degrees Fahrenheit Sep, Heart Rate 94 /min Sep, Oximetry 95 % Sep, Blood pressure systolic 158 mm Hg Sep, Blood pressure diastolic 78 mm Hg Sep, MEDICATIONS Medication SIG (Take, Route, Frequency, Duration) Notes Start Da te End Date Status Hydrochlorothiazide 12.5 MG 1 tablet in the morning Or ally Once a day for 30 days Active Multivitamin Adult - Orally Acti ve [place]-3 Fish Oil Concentrate [address] Oral [...] Orally daily Active PROCEDURES No Information RESULTS REASON FOR VISIT discuss results MEDICAL (GENERAL) HISTORY Type Description Date [...] History l knee replacement Hospitalization History [facility] ER fall 08/22/17 Hospitalization History [place] admit-surgery 08/25/2020 Goals Section No Information Health Concerns No Information MEDICAL EQUIPMENT No Information MENTAL STATUS No Information FUNCTIONAL STATUS No Information ASSESSMENTS Encounter Date Diagnosis Assessment Notes Treatment Notes Treatm ent Clinical Notes Sep, Right renal mass (ICD-10 - N28.89) Ultrasound positive for 2 cm mass of right kidney. Will obtain CT scan for further evaluation and initiate referral to urology. Sep, Adnexal cyst (ICD-10 - N94.9) Incidental finding on previous extremity imaging. will obtain ultrasound for further evaluation. PLAN OF TREATMENT Treatment Notes Assessment Notes Clinical Notes Right renal mass Ultrasound positive for 2 cm mass of right kidney. Will obtain CT scan for further evaluation and initiate referral to urology. Adnexal cyst Incidental finding o n previous extremity imaging. will obtain ultrasound for further evaluation. Treatment Notes Test Name Order Date CT ABD&PEL WITH IV CONT ONLY - [id number] 2020-09-20 Pelvic Uterus & Ovaries - 22733 2020-09-20 Next Appt Details prn Reason: Provider Name:Glenn Rustam 2020-10-02 11:10:00 AM, [address] [facility], [address], [place], [address], Insurance Providers Payer Name Payer Address Payer Phone Insured Name Patient Relati onship to Insured Coverage Start Date Coverage End Date Medicaid [address] [facility] [id number] TAL MCNALLY
--- OUTSIDE RECORDS SUMMARY | 2020-10-27 07:05 | CCD ---
Author Author [facility] Syst ems Organization [facility] [employer] Syst em[facility] Address Unknown Phone Unavailable Care Team Providers Care Electronics Mechanic Apprentice Name Role Phone Reese Guerrero Unavailable PROBLEMS Type Condition ICD9-CM Code MTG07-IM Code Onset Dates Condition S tatus SNOMED Code Notes Problem Renal mass N28.89 Active 403318255 Problem Preop testing Z01.818 Active 346686849 ALLERGIES No Known Allergies ENCOUNTERS from 1955 to 2020-10-07 Encounter Location Date Provider Diagnosis [facility] [address] [place] [address] [place] [address] Sep Reese Guerrero Renal mass N28.89 and Preop testing Z01. 818 IMMUNIZATIONS No Information SOCIAL HISTORY Tobacco Use: Social History Observation Description Date Details (start date - stop date) Never Smoker Sex Assigned At : Social History Observation Description Sex Assigned At Unknown Language: Question Answer Notes Languages spoken: Haitian Spiritism: Question Answer Notes Spiritism No roman catholic beliefs that would impact health care. Alcohol Screening: Question Answer Notes Did you have a drink containing alcohol in the past year? No Points 0 Interpretation Negative Tobacco Use: Question Answer Notes Are you a: never smoker REASON FOR REFERRAL No Information VITAL SIGNS Weight 235.6 lbs Sep, Height 65 in Sep, BMI 39.20 kg/m2 Sep, Heart Rate 97 /min Sep, Respiratory Rate 18 /min Sep, Temperature 97.3 degrees Fahrenheit Sep, Oximetry 99 Sep, Blood pressure systolic 124 mm Hg Sep, Blood pressure diastolic 68 mm Hg Sep, MEDICATIONS Medication SIG (Take, Route, Frequency, Duration) Notes Start Da te End Date Status Calcium 500 MG 2 tablet with meals Orally Daily Active Omeprazole 20 MG 1 capsule 30 minutes before morning meal Orally Once a day for 30 day(s) Active Tylenol 325 MG 1 tablet as needed Orally every 4 hrs Active [place] 3 1000 MG 1 capsule Orally Once [...] Information RESULTS No Results REASON FOR VISIT Right Kidney Mass MEDICAL (GENERAL) HISTORY Type Description Date Medical [...] Treatment Notes Treatm ent Clinical Notes Sep, Renal mass (ICD-10 - N28.89) - informed consent signed for R robotic partial nephrectomy - will need preop CBC, BMP, coags - patient had CXR and EKG done recently - will need to get records - will need med clearance Sep, Preop testing (ICD-10 - Z01.818) PLAN OF TREATMENT Treatment Notes Assessment Notes Clinical Notes Renal mass - informed consent s igned for R robotic partial nephrectomy- will need preop CBC, BMP, coags- patient had CXR and EKG done recently - will need to get records- will need med clearance Treatment Notes Test Name Order Date CBC - Complete Blood Count 2020-10-07 PT & APTT 2020-10-07 Basic Metabolic Profile (BMP) 2020-10-07 Next Appt Details surgery Reason: Insurance Providers Payer Name Payer Address Payer Phone Insured Name Patient Relati onship to Insured Coverage Start Date Coverage End Date MEDICAID [employer] [address] [facility] [id number] DANNIELLE MCNALLY self
--- OUTSIDE RECORDS SUMMARY | 2020-10-27 07:06 | CCD ---
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 Active 4209069 01 Problem Duodenitis without mention of hemorrhage K29.80 Active 44847234 Problem Primary localized osteoarthrosis, lower leg M17.10 Active 437853723 Problem Morbid obesity E66.01 Active 673453840 Problem Malignant neoplasm of breast (female) C50.919 Ac tive 103435104 Problem Carpal tunnel syndrome G56.00 Active 89218826 Problem Lumbago M54.5 Active 828684150 Problem Hyperlipidemia E78.5 Active 15865536 Problem Obesity E66.9 Active 746934570 Problem Esophageal reflux K21.9 Active 579963088 Problem Primary osteoarthritis of left knee M17.12 Acti ve 518106554419491 Problem Essential hypertension I10 Active 75164579 Problem Anxiety F41.9 Active 32197428 Problem Venous insufficiency of both lower extremities I87 .2 Active 655066726 Problem Vitamin D deficiency E55.9 Active 84368503 Problem PRASANTH (obstructive sleep apnea) G47.33 Active 78 172733 ALLERGIES No Known Allergies ENCOUNTERS from 1955 to 2020-08-10 Encounter Location Date Provider Diagnosis [facility] Internal Medicine [address] [facility] [address] [place] [phone] Jul, Marielle Salgado IMMUNIZATIONS Vaccine Route Administration Date [...] Sodium 35 MG 1 tablet Orally weekly Active Vitamin D3 1000 UNIT 2 tablets Orally Once a day Active Bipap as directed DX: PRASANTH BIPAP gaxiola pplies, F Face Mask, Nasal Mask, Headgear, Cushions, Filters and Tubing for 30 days Apr, Active Hydrochlorothiazide 12.5 MG 1 tablet in the morning Or ally Once a day for 30 days Active [place]-3 Fish Oil Concentrate [address] Oral 2 ( two) Capsule DR two times daily for 30 Oct, Active Omeprazole 20 MG 1 capsule 30 minutes before morning meal Orally twice a day for 30 days Active Multivitamin Adult - Orally Active PROCEDURES No Information RESULTS No Results REASON FOR VISIT preop cosign noted MEDICAL (GENERAL) HISTORY Type Description Date Medical [...] :right breast Surgical History Appendectomy Hospitalization History [facility] ER fall 08/22/17 Goals Section No Information Health Concerns No Information MEDICAL EQUIPMENT No Information MENTAL STATUS No Information FUNCTIONAL STATUS No Information ASSESSMENTS No Information PLAN OF TREATMENT Next Appt Details Provider Name:Marielle Damian 2020-08 09:30:00 AM, [address], [address], [place], [address], Insurance Providers Payer Name Payer Address Payer Phone Insured Name Patient Relati onship to Insured Coverage Start Date Coverage End Date Medicaid [address] [facility] [id number] TAL MCNALLY self
--- OUTSIDE RECORDS SUMMARY | 2020-10-27 07:06 | CCD ---
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 Active 3317721 01 Problem Duodenitis without mention of hemorrhage K29.80 Active 68688867 Problem Primary localized osteoarthrosis, lower leg M17.10 Active 972798528 Problem Morbid obesity E66.01 Active 968230648 Problem Malignant neoplasm of breast (female) C50.919 Ac tive 922923592 Problem Carpal tunnel syndrome G56.00 Active 97328222 Problem Lumbago M54.5 Active 794916822 Problem Hyperlipidemia E78.5 Active 17217509 Problem Obesity E66.9 Active 568590998 Problem Esophageal reflux K21.9 Active 309227272 Problem Primary osteoarthritis of left knee M17.12 Acti ve 036624918819850 Problem Essential hypertension I10 Active 04835629 Problem Anxiety F41.9 Active 00636518 Problem Venous insufficiency of both lower extremities I87 .2 Active 179597544 Problem Vitamin D deficiency E55.9 Active 53845832 Problem PRASANTH (obstructive sleep apnea) G47.33 Active 78 839952 ALLERGIES No Known Allergies ENCOUNTERS from 1955 to 2020-08-05 Encounter Location Date Provider Diagnosis [facility] Internal Medicine 3 [facility] [address] [place] [phone] Jul, Pastora Lr Primary osteoarthrit is of left knee M17.12 ; Body mass index (BMI) 40.0-44.9, adult Z68.41 ; Preop exam for internal medicine Z01.818 and Essential hypertension I10 IMMUNIZATIONS Vaccine Route Administration Date Status Influenza [...] No Information VITAL SIGNS Height 63 in Jul, Weight 240.8 lbs Jul, Weight-kg 109.23 kg Jul, BMI 42.65 kg/m2 Jul, Temperature 97.8 degrees Fahrenheit Jul, Heart Rate 78 /min Jul, Oximetry 98 % Jul, Blood pressure systolic 136 mm Hg Jul, Blood pressure diastolic 86 mm Hg Jul, MEDICATIONS Medication SIG (Take, Route, Frequency, Duration) [...] Once a day for 30 days Active [place]-3 Fish Oil Concentrate [address] Oral 2 ( two) Capsule DR two times daily for 30 Oct, Active Omeprazole 20 MG 1 capsule 30 minutes before morning meal Orally twice a day for 30 days Active Multivitamin Adult - Orally Active PROCEDURES No Information RESULTS Component Value Reference Range X Ray Chest 2 Views Reviewed date:07/31/2020 08:05:21 Interpretation: Performing Lab: EKG 34030 Reviewed date:07/31/2020 08:03:06 Interpretation: Performing Lab: REASON FOR VISIT med clearance L knee surgery at [facility] on 08/25/20, Morbid Obesit y follow-up MEDICAL (GENERAL) HISTORY Type Description Date Medical [...] :right breast Surgical History Appendectomy Hospitalization History [facility] ER fall 08/22/17 Goals Section No Information Health Concerns No Information MEDICAL EQUIPMENT No Information MENTAL STATUS No Information FUNCTIONAL STATUS No Information ASSESSMENTS Encounter Date Diagnosis Notes Jul, Body mass index (BMI) 40.0-44.9, adult ( ICD-10 - Z68.41) Jul, Primary osteoarthritis of left knee (ICD -10 - M17.12) Jul, Essential hypertension (ICD-10 - I10) Jul, Preop exam for internal medicine (ICD-10 - Z01.818) PLAN OF TREATMENT Treatment Notes Assessment Notes Clinical Notes Body mass index (BMI) 40.0-44.9, adult Patient was cou nseled regarding healthier eating and getting regular exercise. Preop exam for internal medicine Hold all herbal and O TC medications 7 days prior to surgery and resume the day following surgery, Hold aspirin and other NSAIDs 7 days prior to surgery and resume the day following surgery Patient is at average risk for the planned procedure, Patient is medically optimized for the planned procedure, Patient is not yet medically cleared for surgery. An addendum from Dr. Lassiter will be made when medical evaluation is complete Next Appt Details prn Reason:as scheduled/needed Provider Name:Marielle Salgado 2020-08 09:30:00 AM, [address] [facility], [address], [place], [address], Follow Up:prnas scheduled/needed Insurance Providers Payer Name Payer Address Payer Phone Insured Name Patient Relati onship to Insured Coverage Start Date Coverage End Date Medicaid [address] [facility] [id number] TAL MCNALLY
--- OUTSIDE RECORDS SUMMARY | 2020-10-27 07:06 | CCD ---
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 7079326 01 Problem Duodenitis without mention of hemorrhage K29.80 Active 86908622 Problem Primary localized osteoarthrosis, lower leg M17.10 Active 082242067 Problem Morbid obesity E66.01 Active 035740539 Problem Malignant neoplasm of breast (female) C50.919 Ac tive 030368509 Problem Carpal tunnel syndrome G56.00 Active 51464082 Problem Lumbago M54.5 Active 587927891 Problem Hyperlipidemia E78.5 Active 69135666 Problem Obesity E66.9 Active 202608661 Problem Esophageal reflux K21.9 Active 546757210 Problem Primary osteoarthritis of left knee M17.12 Acti ve 956274376447488 Problem Essential hypertension I10 Active 92831782 Problem Anxiety F41.9 Active 45277413 Problem Venous insufficiency of both lower extremities I87 .2 Active 582165410 Problem Vitamin D deficiency E55.9 Active 14903334 Problem PRASANTH (obstructive sleep apnea) G47.33 Active 78 048344 ALLERGIES No Known Allergies ENCOUNTERS from 1955 to 2020-08-20 Encounter Location Date Provider Diagnosis [facility] Internal Medicine 3 [facility] [address] [place] [phone] Aug, Marielle Salgado IMMUNIZATIONS Vaccine Route Administration [...] Once a day for 30 days Active [place]-3 Fish Oil Concentrate [address] Oral 2 ( two) Capsule DR two times daily for 30 Oct, Active Omeprazole 20 MG 1 capsule 30 minutes before morning meal Orally twice a day for 30 days Active Multivitamin Adult - Orally Active PROCEDURES No Information RESULTS No Results REASON FOR VISIT Needs info faxed MEDICAL (GENERAL) HISTORY Type Description Date Medical [...] :right breast Surgical History Appendectomy Hospitalization History [facility] ER fall 08/22/17 Goals Section No Information Health Concerns No Information MEDICAL EQUIPMENT No Information MENTAL STATUS No Information FUNCTIONAL STATUS No Information ASSESSMENTS No Information PLAN OF TREATMENT Next Appt Details Provider Name:Marielle Cejadeclan 2020-08 09:30:00 AM, [address], [address], [place], [address], Insurance Providers Payer Name Payer Address Payer Phone Insured Name Patient Relati onship to Insured Coverage Start Date Coverage End Date Medicaid [address] [facility] [id number] TAL MCNALLY self
--- OUTSIDE RECORDS SUMMARY | 2020-10-27 07:06 | CCD ---
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 2990959 01 Problem Duodenitis without mention of hemorrhage K29.80 Active 09991222 Problem Primary localized osteoarthrosis, lower leg M17.10 Active 162718279 Problem Morbid obesity E66.01 Active 272013473 Problem Malignant neoplasm of breast (female) C50.919 Ac tive 829178299 Problem Carpal tunnel syndrome G56.00 Active 54294944 Problem Lumbago M54.5 Active 025151765 Problem Hyperlipidemia E78.5 Active 21857036 Problem Obesity E66.9 Active 514621919 Problem Esophageal reflux K21.9 Active 118123575 Problem Primary osteoarthritis of left knee M17.12 Acti ve 495761744667638 Problem Essential hypertension I10 Active 48621171 Problem Anxiety F41.9 Active 51804345 Problem Venous insufficiency of both lower extremities I87 .2 Active 156896297 Problem Vitamin D deficiency E55.9 Active 89862586 Problem PRASANTH (obstructive sleep apnea) G47.33 Active 78 500558 ALLERGIES No Known Allergies ENCOUNTERS from 1955 to 2020-08-24 Encounter Location Date Provider Diagnosis [facility] Internal Medicine [address] [facility] [address] [place] [phone] Aug, Marielle Salgado IMMUNIZATIONS Vaccine Route Administration [...] Once a day for 30 days Active [place]-3 Fish Oil Concentrate [address] Oral 2 ( two) Capsule DR two times daily for 30 Oct, Active Omeprazole 20 MG 1 capsule 30 minutes before morning meal Orally twice a day for 30 days Active Multivitamin Adult - Orally Active PROCEDURES No Information RESULTS No Results REASON FOR VISIT Needs info Faxed MEDICAL (GENERAL) HISTORY Type Description Date Medical [...] :right breast Surgical History Appendectomy Hospitalization History [facility] ER fall 08/22/17 Goals Section No Information Health Concerns No Information MEDICAL EQUIPMENT No Information MENTAL STATUS No Information FUNCTIONAL STATUS No Information ASSESSMENTS No Information PLAN OF TREATMENT Next Appt Details Provider Name:Marielle Cejadeclan 2020-08 09:30:00 AM, [address], [address], [place], [address], Insurance Providers Payer Name Payer Address Payer Phone Insured Name Patient Relati onship to Insured Coverage Start Date Coverage End Date Medicaid [address] [facility] [id number] TAL MCNALLY self
--- OUTSIDE RECORDS SUMMARY | 2020-10-27 07:07 | CCD ---
Author Author [facility] Organization [facility] Address Unknown Phone Unavailable Care Team Providers Care Brasswind Instrument Repairer Name Role Phone JOSE MARTIN PAT MD Unavailable Unavailable BROUGHAL, C COLIN PA Unavailable Unavailable BROUGHAL, C COLIN PA Unavailable Unavailable BROUGHAL, C COLIN PA Unavailable Unavailable BROUGHAL, C COLIN PA Unavailable Unavailable BROUGHAL, C COLIN PA Unavailable Unavailable BROUGHAL, C COLIN PA Unavailable Unavailable CHARLIE, JANIS PA Unavailable Unavailable CHARLIE, JANIS PA Unavailable Unavailable CHARLIE, JANIS PA Unavailable Unavailable CHARLIE, JANIS PA Unavailable Unavailable CHARLIE, JANIS PA Unavailable Unavailable CHARLIE, JANIS PA Unavailable Unavailable CHARLIE, JANIS PA Unavailable Unavailable CHARLIE, JANIS PA Unavailable Unavailable CHARLIE, JANIS PA Unavailable Unavailable CHARLIE, JANIS PA Unavailable Unavailable CHARLIE, JANIS PA Unavailable Unavailable CHARLIE, JANIS PA Unavailable Unavailable CHARLIE, JANIS PA Unavailable Unavailable CHARLIE, JANIS PA Unavailable Unavailable CHARLIE, JANIS PA Unavailable Unavailable CHARLIE, JANIS PA Unavailable Unavailable CHARLIE, JANSI PA Unavailable Unavailable CHARLIE, JANIS PA Unavailable Unavailable Sinor, Bakhti Unavailable Sinor, Bakhti Unavailable Sinor, Bakhti Unavailable Sinor, Bakhti Unavailable Sinor, Bakhti Unavailable Sinor, Bakhti Unavailable Sinor, Bakhti Unavailable Sinor, Bakhti Unavailable Sinor, Bakhti Unavailable Sinor, Bakhti Unavailable Sinor, Bakhti Unavailable Sinor, Bakhti Unavailable JONNIE, ARPIT SALES FLOOR TEAM MEMBER Unavailable Unavailable JONNIE, ARPIT SALES FLOOR TEAM MEMBER Unavailable Unavailable JONNIE, ARPIT SALES FLOOR TEAM MEMBER Unavailable Unavailable JONNIE, ARPIT SALES FLOOR TEAM MEMBER Unavailable Unavailable JONNIE, ARPIT SALES FLOOR TEAM MEMBER Unavailable Unavailable JONNIE, ARPIT SALES FLOOR TEAM MEMBER Unavailable Unavailable JONNIE, ARPIT SALES FLOOR TEAM MEMBER Unavailable Unavailable JONNIE, ARPIT SALES FLOOR TEAM MEMBER Unavailable Unavailable JONNIE, ARPIT SALES FLOOR TEAM MEMBER Unavailable Unavailable JONNIE, ARPIT SALES FLOOR TEAM MEMBER Unavailable Unavailable JONNIE, ARPIT SALES FLOOR TEAM MEMBER Unavailable Unavailable JONNIE, ARPIT SALES FLOOR TEAM MEMBER Unavailable Unavailable JONNIE, ARPIT SALES FLOOR TEAM MEMBER Unavailable Unavailable JONNIE, ARPIT SALES FLOOR TEAM MEMBER Unavailable Unavailable JONNIE, ARPIT SALES FLOOR TEAM MEMBER Unavailable Unavailable JONNIE, ARPIT SALES FLOOR TEAM MEMBER Unavailable Unavailable JONNIE, ARPIT SALES FLOOR TEAM MEMBER Unavailable Unavailable JONNIE, ARPIT SALES FLOOR TEAM MEMBER Unavailable Unavailable JONNIE, ARPIT SALES FLOOR TEAM MEMBER Unavailable Unavailable JONNIE, ARPIT SALES FLOOR TEAM MEMBER Unavailable Unavailable JONNIE, ARPIT SALES FLOOR TEAM MEMBER Unavailable Unavailable JONNIE, ARPIT SALES FLOOR TEAM MEMBER Unavailable Unavailable JONNIE, ARPIT SALES FLOOR TEAM MEMBER Unavailable Unavailable JONNIE, ARPIT SALES FLOOR TEAM MEMBER Unavailable Unavailable JONNIE, ARPIT SALES FLOOR TEAM MEMBER Unavailable Unavailable JONNIE, ARPIT SALES FLOOR TEAM MEMBER Unavailable Unavailable JONNIE, ARPIT SALES FLOOR TEAM MEMBER Unavailable Unavailable JONNIE, ARPIT SALES FLOOR TEAM MEMBER Unavailable Unavailable JONNIE, ARPIT SALES FLOOR TEAM MEMBER Unavailable Unavailable JONNIE, ARPIT SALES FLOOR TEAM MEMBER Unavailable Unavailable JONNIE, ARPIT SALES FLOOR TEAM MEMBER Unavailable Unavailable JONNIE, ARPIT SALES FLOOR TEAM MEMBER Unavailable Unavailable JONNIE, ARPIT SALES FLOOR TEAM MEMBER Unavailable Unavailable JONNIE, ARPIT SALES FLOOR TEAM MEMBER Unavailable Unavailable Neris LOVE MD Unavailable Unavailable MARCELA, PRYJMA HERMAN MD Unavailable Unavailable MARCELA, PRYJMA HERMAN MD Unavailable Unavailable MARCELA, PRYJMA HERMAN MD Unavailable Unavailable MARCELA, PRYJMA HERMAN MD Unavailable Unavailable MARCELA, PRYJMA HERMAN MD Unavailable Unavailable MARCELA, PRYJMA HERMAN MD Unavailable Unavailable MARCELA, PRYJMA HERMAN MD Unavailable Unavailable MARCELA, PRYJMA HERMAN MD Unavailable Unavailable MARCELA, PRYJMA HERMAN MD Unavailable Unavailable MARCELA, PRYJMA HERMAN MD Unavailable Unavailable MARCELA, PRYJMA HERMAN MD Unavailable Unavailable MARCELA, PRYJMA HERMAN MD Unavailable Unavailable MARCELA, PRYJMA HERMAN MD Unavailable Unavailable MARCELA, PRYJMA HERMAN MD Unavailable Unavailable MARCELA, PRYJMA HERMAN MD Unavailable Unavailable MARCELA, PRYJMA HERMAN MD Unavailable Unavailable MARCELA, PRYJMA HERMAN MD Unavailable Unavailable MARCELA, PRYJMA HERMAN MD Unavailable Unavailable MARCELA, PRYJMA HERMAN MD Unavailable Unavailable MARCELA, PRYJMA HERMAN MD Unavailable Unavailable MARCELA, PRYJMA HERMAN MD Unavailable Unavailable MARCELA, PRYJMA HERMAN MD Unavailable Unavailable MARCELA, PRYJMA HERMAN MD Unavailable Unavailable MARCELA, PRYJMA HERMAN MD Unavailable Unavailable MARCELA, PRYJMA HERMAN MD Unavailable Unavailable MARCELA, PRYJMA HERMAN MD Unavailable Unavailable MARCELA, PRYJMA HERMAN MD Unavailable Unavailable MARCELA, PRYJMA HERMAN MD Unavailable Unavailable BERNADETTE LOVE MD Unavailable Unavailable BERNADETTE LOVE MD Unavailable Unavailable BERNADETTE LOVE MD Unavailable Unavailable BERNADETTE LOVE MD Unavailable Unavailable BERNADETTE LOVE MD Unavailable Unavailable BERNADETTE LOVE MD Unavailable Unavailable BERNADETTE LOVE MD Unavailable Unavailable BERNADETTE LOVE MD Unavailable Unavailable BERNADETTE LOVE MD Unavailable Unavailable BERNADETTE LOVE MD Unavailable Unavailable KetanJenn juarez DO Unavailable Unavailable KetanJenn juarezel DO Unavailable Unavailable Ketan, Jenn Burkel DO Unavailable Unavailable Ketan, Jenn Burkel DO Unavailable Unavailable Ketan, M Danilo DO Unavailable Unavailable Ketan, Jenn Burkel DO Unavailable Unavailable KetanJennel DO Unavailable Unavailable KetanJennel DO Unavailable Unavailable Ketan, Jenn Burkel DO Unavailable Unavailable Ketan, Jenn Burkel DO Unavailable Unavailable Ketan, Jenn Burkel DO Unavailable Unavailable Ketan, Jenn Danilo DO Unavailable Unavailable KetanJenn juarezel DO Unavailable Unavailable Ketan, Jenn Burkel DO Unavailable Unavailable KetanJennel DO Unavailable Unavailable Ketan, M Danilo DO Unavailable Unavailable Salgado, Condict Marielle PA Unavailable Unavailabl e Salgado, Condict Marielle PA Unavailable Unavailabl e Salgado, Condict Marielle PA Unavailable Unavailabl e Salgado, Condict Marielle PA Unavailable Unavailabl e Salgado, Condict Marielle PA Unavailable Unavailabl e Salgado, Condict Marielle PA Unavailable Unavailabl e Salgado, Condict Marielle PA Unavailable Unavailabl e Salgado, Condict Marielle PA Unavailable Unavailabl e Salgado, Condict Marielle PA Unavailable Unavailabl e Salgado, Condict Marielle PA Unavailable Unavailabl e Salgado, Condict Marielle PA Unavailable Unavailabl e Salgado, Condict Marielle PA Unavailable Unavailabl e Salgado, Condict Marielle PA Unavailable Unavailabl e Salgado, Condict Marielle PA Unavailable Unavailabl e Salgado, Condict Marielle PA Unavailable Unavailabl e Salgado, Condict Marielle PA Unavailable Unavailabl e Salgado, Condict Marielle PA Unavailable Unavailabl e Salagdo, Condict Marielle PA Unavailable Unavailabl e Salgado, Condict Marielle PA Unavailable Unavailabl e Salgado, Condict Marielle PA Unavailable Unavailabl e Salgado, Condict Marielle PA Unavailable Unavailabl e Salgado, Condict Marielle PA Unavailable Unavailabl e Salgado, Condict Marielle PA Unavailable Unavailabl e Salgado, Condict Marielle PA Unavailable Unavailabl e Salgado, Condict Marielle PA Unavailable Unavailabl e Salgado, Condict Marielle PA Unavailable Unavailabl e Salgado, Condict Marielle PA Unavailable Unavailabl e Salgado, Condict Marielle PA Unavailable Unavailabl e Salgado, Condict Marielle PA Unavailable Unavailabl e Salgado, Condict Marielle PA Unavailable Unavailabl e Salgado, Condict Marielle PA Unavailable Unavailabl e Salgado, Condict Marielle PA Unavailable UnavailNADER Ramirez MD Unavailable Unavailable ABHYANKNADER LEHMAN MD Unavailable Unavailable ABHYANKNADER LEHMAN MD Unavailable Unavailable ABHYANKNADER LEHMAN MD Unavailable Unavailable GREGANKNADER LEHMAN MD Unavailable Unavailable GREGANKNADER LEHMAN MD Unavailable Unavailable ABSTEVENANKNADER LEHMAN MD Unavailable Unavailable ABSTEVENANKNADER LEHMAN MD Unavailable Unavailable Neris MCKEON MD Unavailable Unavailable BUNKER, R SANDOR PA Unavailable Unavailable BUNKER, R SANDOR PA Unavailable Unavailable BUNKER, R SANDOR PA Unavailable Unavailable BUNKER, R SANDOR PA Unavailable Unavailable BUNKER, R SANDOR PA Unavailable Unavailable BUNKER, R SANDOR PA Unavailable Unavailable BUNKER, R SANDOR PA Unavailable Unavailable BUNKER, R SANDOR PA Unavailable Unavailable BUNKER, R SANDOR PA Unavailable Unavailable BUNKER, R SANDOR PA Unavailable Unavailable BUNKER, R SANDOR PA Unavailable Unavailable BUNKER, R SANDOR PA Unavailable Unavailable BUNKER, R SANDOR PA Unavailable Unavailable BUNKER, R SANDOR PA Unavailable Unavailable BUNKER, R SANDOR PA Unavailable Unavailable BUNKER, R SANDOR PA Unavailable Unavailable BUNKER, R SANDOR PA Unavailable Unavailable BUNKER, R SANDOR PA Unavailable Unavailable BUNKER, R SANDOR PA Unavailable Unavailable BUNKER, R SANDOR PA Unavailable Unavailable BUNKER, R SANDOR PA Unavailable Unavailable BUNKER, R SANDOR PA Unavailable Unavailable BUNKER, R SANDOR PA Unavailable Unavailable BUNKER, R SANDOR PA Unavailable Unavailable BUNKER, R SANDOR PA Unavailable Unavailable BUNKER, R SANDOR PA Unavailable Unavailable BUNKER, R SANDOR PA Unavailable Unavailable BUNKER, R SANDOR PA Unavailable Unavailable BUNKER, R SANDOR PA Unavailable Unavailable BUNKER, R SANDOR PA Unavailable Unavailable BUNKER, R SADNOR PA Unavailable Unavailable BUNKER, R SANDOR PA Unavailable Unavailable BUNKER, R SANDOR PA Unavailable Unavailable BUNKER, R SANDOR PA Unavailable Unavailable BUNKER, R SANDOR PA Unavailable Unavailable BUNKER, R SANDOR PA Unavailable Unavailable BUNKER, R SANDOR PA Unavailable Unavailable BUNKER, R SANDOR PA Unavailable Unavailable BUNKER, R SANDOR PA Unavailable Unavailable BUNKER, R SANDOR PA Unavailable Unavailable BUNKER, R SANDOR PA Unavailable Unavailable BUNKER, R SANDOR PA Unavailable Unavailable BUNKER, R SANDOR PA Unavailable Unavailable BUNKER, R SANDOR PA Unavailable Unavailable BUNKER, R SANDOR PA Unavailable Unavailable BUNKER, R SANDOR PA Unavailable Unavailable BUNKER, R SANDOR PA Unavailable Unavailable BUNKER, R SANDOR PA Unavailable Unavailable BUNKER, R SANDOR PA Unavailable Unavailable BUNKER, R SANDOR PA Unavailable Unavailable BUNKER, R SANDOR PA Unavailable Unavailable BUNKER, R SANDOR PA Unavailable Unavailable BUNKER, R SANDOR PA Unavailable Unavailable BUNKER, R SANDOR PA Unavailable Unavailable BUNKER, R SANDOR PA Unavailable Unavailable BUNKER, R SANDOR PA Unavailable Unavailable PATRIC TAVERAS MD MPH Unavailable Unavailable Jhonny, Wahib MD Unavailable Unavailable Jhonny, Wahib MD Unavailable Unavailable Jhonny, Wahib MD Unavailable Unavailable Jhonny, Wahib MD Unavailable Unavailable Jhonny, Wahib MD Unavailable Unavailable Jhonny, Wahib MD Unavailable Unavailable Jhonny, Wahib MD Unavailable Unavailable Jhonny, Wahib MD Unavailable Unavailable Jhonny, Wahib MD Unavailable Unavailable Jhonny, Wahib MD Unavailable Unavailable Jhonny, Wahib MD Unavailable Unavailable Jhonny, Wahib MD Unavailable Unavailable Jhonny, Wahib MD Unavailable Unavailable MD Patric Taveras MD, MD MPH Unavailable MD Patric Taveras MD, MD MPH Unavailable MD Patric Taveras MD, MD MPH Unavailable MD Patric Taveras MD, MD MPH Unavailable MD Patric Taveras MD, MD MPH Unavailable MD Patric Taveras MD, MD MPH Unavailable MD Patric Taveras MD, MD MPH Unavailable MD Patric Taveras MD, MD MPH Unavailable MD Patric Taveras MD, MD MPH Unavailable MD Patric Taveras MD, MD MPH Unavailable MD Patric Taveras MD, MD MPH Unavailable Misael OSCAR, MD Patric OSCAR MPH Unavailable Misael OSCAR, MD Patric OSCAR MPH Unavailable Misael OSCAR, MD Patric OSCAR MPH Unavailable Misael OSCAR, MD Patric OSCAR MPH Unavailable Misael OSCAR, MD Patric OSCAR MPH Unavailable Misael OSCAR, MD Patric OSCAR MPH Unavailable Misael OSCAR, MD Patric OSCAR MPH Unavailable MARCELA, ERIC SUTTON MD Unavailable Unavailable MARCELA, ERIC SUTTON MD Unavailable Unavailable MARCELA, ERIC SUTTON MD Unavailable Unavailable MARCELA, ERIC SUTTON MD Unavailable Unavailable MARCELA, ERIC SUTTON MD Unavailable Unavailable MARCELA, ERIC SUTTON MD Unavailable Unavailable MARCELA, ERIC SUTTON MD Unavailable Unavailable MARCELA, ERIC SUTTON MD Unavailable Unavailable MARCELA, ERIC SUTTON MD Unavailable Unavailable MARCELA, ERIC SUTTON MD Unavailable Unavailable MARCELA, ERIC SUTTON MD Unavailable Unavailable MARCELA, ERIC SUTTON MD Unavailable Unavailable MARCELA, ERIC SUTTON MD Unavailable Unavailable MARCELA, ERIC SUTTON MD Unavailable Unavailable MARCELA, ERIC SUTTON MD Unavailable Unavailable MARCELA, ERIC SUTTON MD Unavailable Unavailable MARCELA, ERIC SUTTON MD Unavailable Unavailable MARCELA, ERIC SUTTON MD Unavailable Unavailable MARCELA, ERIC SUTTON MD Unavailable Unavailable MARCELA, ERIC SUTTON MD Unavailable Unavailable MARCELA, ERIC SUTTON MD Unavailable Unavailable MARCELA, ERIC SUTTON MD Unavailable Unavailable MARCELA, ERIC SUTTON MD Unavailable Unavailable MARCELA, ERIC SUTTON MD Unavailable Unavailable MARCELA, ERIC SUTTON MD Unavailable Unavailable MARCELA, ERIC SUTTON MD Unavailable Unavailable MARCELA, ERIC SUTTON MD Unavailable Unavailable MARCELA, ERIC SUTTON MD Unavailable Unavailable BROUGHAL, C COLIN PA Unavailable Unavailable BROUGHAL, C COLIN PA Unavailable Unavailable BROUGHAL, C COLIN PA Unavailable Unavailable BROUGHAL, C COLIN PA Unavailable Unavailable BROUGHAL, C COLIN PA Unavailable Unavailable BROUGHAL, C COLIN PA Unavailable Unavailable Reagan LAWRENCE MD Unavailable Unavailable Reagan LAWRENCE MD Unavailable Unavailable Reagan LAWRENCE MD Unavailable Unavailable Reagan LAWRENCE MD Unavailable Unavailable Reagan LAWRENCE MD Unavailable Unavailable Reagan LAWRENCE MD Unavailable Unavailable Reagan LAWRENCE MD Unavailable Unavailable Reagan LAWRENCE MD Unavailable Unavailable Reagan LAWRENCE MD Unavailable Unavailable Reagan LAWRENCE MD Unavailable Unavailable Reagan LAWRENCE MD Unavailable Unavailable Reagan LAWRENCE MD Unavailable Unavailable Reagan LAWRENCE MD Unavailable Unavailable Reagan LAWRENCE MD Unavailable Unavailable Reagan LAWRENCE MD Unavailable Unavailable Reagan LAWRENCE MD Unavailable Unavailable Reagan LAWRENCE MD Unavailable Unavailable Reagan LAWRENCE MD Unavailable Unavailable Reagan LARWENCE MD Unavailable Unavailable Reagan LAWRENCE MD Unavailable Unavailable Reagan LAWRENCE MD Unavailable Unavailable Reagan LAWRENCE MD Unavailable Unavailable Reagan LAWRENCE MD Unavailable Unavailable Reagan LAWRENCE MD Unavailable Unavailable Reagan LAWRENCE MD Unavailable Unavailable Reagan LAWRENCE MD Unavailable Unavailable Reagan LAWRENCE MD Unavailable Unavailable Reagan LAWRENCE MD Unavailable Unavailable Reagan LAWRENCE MD Unavailable Unavailable Reagan LAWRENCE MD Unavailable Unavailable Reagan LAWRENCE MD Unavailable Unavailable Reagan LAWRENCE MD Unavailable Unavailable Reagan LAWRENCE MD Unavailable Unavailable Reagan LAWRENCE MD Unavailable Unavailable Reagan LAWRENCE MD Unavailable Unavailable Reagan LAWRENCE MD Unavailable Unavailable Reagan LAWRENCE MD Unavailable Unavailable Reagan LAWRENCE MD Unavailable Unavailable Reagan LAWRENCE MD Unavailable Unavailable Reagan LAWRENCE MD Unavailable Unavailable THATTE, V BRANDON PA-C Unavailable Unavailable THATTE, V BRANDON PA-C Unavailable Unavailable THATTE, V BRANDON PA-C Unavailable Unavailable THATTE, V BRANDON PA-C Unavailable Unavailable THATTE, V BRANDON PA-C Unavailable Unavailable THATTE, V BRANDON PA-C Unavailable Unavailable THATTE, V BRANDON PA-C Unavailable Unavailable THATTE, V BRANDON PA-C Unavailable Unavailable THATTE, V BRANDON PA-C Unavailable Unavailable THATTE, V BRANDON PA-C Unavailable Unavailable THATTE, V BRANDON PA-C Unavailable Unavailable THATTE, V BRANDON PA-C Unavailable Unavailable Re-disclosure Warning The records that you are about to access may contain information from federally-assisted alcohol or drug abuse programs. If such information is present, then the following federally mandated warning applies: This information has been disclosed to you from records protected by federal confidentiality rules (42 CFR part 2). The federal rules prohibit you from making any further disclosure of this information unless further disclosure is expressly permitted by the written consent of the person to whom it pertains or as otherwise permitted by 42 CFR part 2. A general authorization for the release of medical or other information is NOT sufficient for this purpose. The Federal rules restrict any use of the information to criminally investigate or prosecute any alcohol or drug abuse patient.The records that you are about to access may contain highly sensitive health information, the redisclosure of which is protected by Article 27-F of the [facility] Public Health law. If you continue you may have access to information: Regarding HIV / AIDS; Provided by facilities licensed or operated by the [facility] Office of Mental Health; or Provided by the [facility] Office for People With Developmental Disabilities. If such information is present, then the following [facility] mandated warning applies: This information has been disclosed to you from confidential records which are protected by state law. State law prohibits you from making any further disclosure of this information without the specific written consent of the person to whom it pertains, or as otherwise permitted by law. Any unauthorized further disclosure in violation of state law may result in a fine or detention sentence or both. A general authorization for the release of medical or other information is NOT sufficient authorization for further disc losure. Encounters Encounter Providers Location Date Indications Data Source(s ) Outpatient Attender: Danilo Aceves DO CPSCAORT-COVVACCPH 07/2021 09:26:00 AM [facility] 2ND COVID VACCINE [facility] 2ND COVID VACCINE Outpatient Attender: MENG LAWRENCE MD -[facility] 10/22/2020 11:50:00 AM [facility] Outpatient Attender: Marielle ALVAREZ 10/21/2020 01:19 :00 PM [facility] Outpatient [address] [place] [address] 10/21/2020 12:00:00 AM EST eCW1 ([facility]) Outpatient Attender: MENG LAWRENCE MD ER-LAB 10/20/2020 09:07:00 AM EST [facility] Recurring Patient Attender: BRODERICK LOVE MDAttender: BRODERICK KNIGHT MD ER-OPT 10/16/2020 10:41:00 AM EST [facility] Unknown [address] [facility] [address] 10/13/2020 12:00:00 AM EST eCW1 ([facility]) [place] [address] [facility] [place] [address] 10/13/2020 12:00:00 AM EST eCW1 ([facility]) Outpatient [address] [place] [address] 10/12/2020 12:00:00 AM EST eCW1 ([facility]) Outpatient [address] [place] [address] 10/12/2020 12:00:00 AM EST eCW1 ([facility]) [place] [address] [facility] [address] 10/06/2020 12:00:00 AM EST eCW1 ([facility]) Outpatient Attender: Danilo Aceves DO CPSCAORT-COVVACCPH 02:00:00 PM EST 1ST VACCINE [facility] 1ST VACCINE Outpatient [address] [facility] [address] 10/02/2020 12:00:00 AM EST eCW1 ([facility]) Outpatient Attender: BRODERICK LOVE MDAttender: BRODERICK Snyder MD ER-MOB 10/01/2020 12:36:00 AM EST [facility] Outpatient [address] [place] [address] 10/01/2020 12:00:00 AM EST eCW1 ([facility]) Outpatient Attender: Marielle ALVAREZ ER-RAD 09/25/2020 02:26 :00 AM EST [facility] Outpatient Attender: JOSE MARTIN PAT MD 09/24/2020 09:52:0 0 AM EST [facility] Admission cancelled. Disregard status an d admitted date. Outpatient Attender: Jessica Barry MD ER-CTCMEDONC 09/24/2020 08:55:00 AM EST [facility] Outpatient [address] [place] [address] 09/24/2020 12:00:00 AM EST eCW1 ([facility]) Outpatient Attender: Marielle Salgado PAReferrer: Jessica Barry MDConsultant: Jessica Barry MD ER-WHS 09/23/2020 09:22:00 AM EST [facility] Outpatient [address] [place] [address] 09/23/2020 12:00:00 AM EST eCW1 ([facility]) Outpatient [address] [place] [address] 09/22/2020 12:00:00 AM EST eCW1 ([facility]) Outpatient [address] [place] [address] 09/21/2020 12:00:00 AM EST eCW1 ([facility]) Outpatient [address] [place] [address] 09/17/2020 12:00:00 AM EST eCW1 ([facility]) Outpatient [address] [place] [address] 09/17/2020 12:00:00 AM EST eCW1 ([facility]) Outpatient Attender: Marielle ALVAREZ ER-RAD 09/16/2020 09:50 :00 AM EST [facility] Outpatient [address] [place] [address] 09/16/2020 12:00:00 AM EST eCW1 ([facility]) Outpatient Attender: BRODERICK LOVE MDAttender: BRODERICK Snyder MD ER-OPT 09/15/2020 07:53:00 AM EST - 10/15/2020 12:00:00 AM EST [facility] Patient discharged. Outpatient [address] [facility] [address] [place] [address] 09/14/2020 12:00:00 AM EST eCW1 ([facility]) Outpatient Attender: HERMAN MEDRANO MD CPSCAORT-CPSCNGSR 09/08 03:54:00 PM EST - 09/08/2020 03:55:00 PM EST [facility] Patient discharged. Outpatient [address] [facility] [address] [place] [address] 09/07/2020 12:00:00 AM EST eCW1 ([facility]) ([id number]) TeleVisit 30 min [address] [facility] [address] [place] [address] 09/03/2020 12:00:00 AM EST eCW1 ([facility]) Outpatient [address] [facility] [address] [place] [address] 09/02/2020 12:00:00 AM EST eCW1 ([facility]) Outpatient Attender: BRODERICK LOVE MDAttender: BRODERICK Snyder MD ER-OPT 09/01/2020 07:45:00 AM EST - 09/14/2020 12:00:00 AM EST [facility] Patient discharged. Outpatient [address] [facility] [address] [facility] [place] [address] 08/28/2020 12:00:00 AM EST eCW1 ([facility]) Outpatient [address] [facility] [address] [place] [address] 08/24/2020 12:00:00 AM EST eCW1 ([facility]) Outpatient [address] [facility] [address] [facility] [place] [address] 08/19/2020 12:00:00 AM EST eCW1 ([facility]) Outpatient Attender: ARPIT COVINGTON ER-CARD 07/30/2020 07:00 :00 AM EDT [facility] Outpatient Attender: Marielle ALVAREZ ER-LAB 07/30/2020 06:04 :00 AM EDT [facility] Outpatient [address] [facility] [address] [place] [address] 07/29/2020 12:00:00 AM EDT eCW1 ([facility]) Outpatient [address] [place] [address] 07/29/2020 12:00:00 AM EDT eCW1 ([facility]) [facility] Internal Medicine [address] [place] [address] 07/23/2020 12:00:00 AM EDT eCW1 ([facility]) Outpatient [address] [place] [address] 07/02/2020 12:00:00 AM EDT eCW1 ([facility]) Outpatient Attender: BRODERICK LOVE MDAttender: BRODERICK Snyder MD ER-RAD 06/26/2020 12:24:00 AM EDT [facility] Outpatient [address] [place] [address] 06/16/2020 12:00:00 AM EDT eCW1 [facility] [facility]) Outpatient [address] [place] [address] 06/04/2020 12:00:00 AM EDT eCW1 ([facility]) Outpatient [address] [place] [address] 06/03/2020 12:00:00 AM EDT eCW1 ([facility]) Preadmit Attender: Jessica Barry MD 05/27/2020 01:21:00 PM EDT [facility] Outpatient Attender: COLIN BARNETT PAConsultant: SANDOR ALVAREZ ER-LAB-PNP 05/26/2020 06:10:00 AM EDT [facility] Outpatient [address] [place] [address] 05/22/2020 12:00:00 AM EDT eCW1 ([facility]) Outpatient Attender: COLIN ALVAREZ CPSCAORT-CPSCADIS 09:32:00 AM EDT - 05/15/2020 09:33:00 AM EDT [facility] Patient discharged. Outpatient [address] [place] [address] 04/29/2020 12:00:00 AM EDT eCW1 ([facility]) Outpatient [address] [place] [address] 04/13/2020 12:00:00 AM EDT eCW1 ([facility]) Outpatient Attender: JANIS ALVAREZ ER-RAD 02/26/2020 03:18:[address] [facility] Orthopedics [address] [place] [address] 02/26/2020 12:00:00 AM EDT eCW1 ([facility]) Outpatient Attender: Jessica Barry MD 02/25/2020 03:10:00 PM EDT [facility] Outpatient Attender: BRANDON ALVAREZ-CAttender: NADER COSTA MD ER-LAB 02/21/2020 08:32:[address] [facility] Orthopedics [address] [place] [address] 02/20/2020 12:00:00 AM EDT eCW1 ([facility]) [facility] Internal Medicine [address] [address] 01/23/2020 12:00:00 AM EDT eCW1 ([facility]) Outpatient Attender: Marielle ALVAREZ ER-LAB 01/10/2020 08:34 :00 AM EDT [facility] Outpatient Attender: HERMAN MEDRANO MD ER-WHS 11/21/2019 09:31:[address] [facility] Internal Medicine [address] [place] [address] 11/20/2019 12:00:00 AM EST eCW1 ([facility]) [facility] Internal Medicine [address] [place] [address] 11/19/2019 12:00:00 AM EST eCW1 ([facility]) Outpatient Attender: COLIN ALVAREZ CPSCAORT-CPSCADIS 08:53:00 AM EST - 11/11/2019 08:54:00 AM EST [facility] Patient discharged. [facility] Internal Medicine [address] [address] 11/11/2019 12:00:00 AM EST eCW1 ([facility]) [facility] Nephrology [address] [place] [address] 11/04/2019 12:00:00 AM EST eCW1 ([facility]) [facility] Internal Medicine [address] [place] [address] 10/24/2019 12:00:00 AM EST eCW1 ([facility]) Outpatient Attender: HERMAN MEDRANO MD ER-ASUR 09/23/2019 08:25:00 AM EST [facility] Admission cancelled. Disregard status an d admitted date. [facility] Internal Medicine [address] [place] [address] 09/19/2019 12:00:00 AM EST eCW1 ([facility]) [facility] Internal Medicine [address] [place] [address] 09/10/2019 12:00:00 AM EST eCW1 ([facility]) Outpatient Attender: NADER HURTADO MD 08/28/2019 03:29:0 0 PM [facility] Outpatient Attender: Kj Cheekttender: KJ MCKEON MD ER-RAD 08/21/2019 12:42:00 AM [facility] Outpatient Attender: Kj Cheekttender: KJ MCKEON MD ER-CTCMEDONC 08/01/2019 09:04:00 AM EDT [facility] Outpatient Attender: BRANDON STOKES PA-C ER-WHS 07/24/2019 07:45:00 AM EDT [facility] Outpatient Attender: Marielle Salgado PAConsultant: BRANDON STOKES PA-C ER-LAB 07/20/2019 07:17:00 AM EDT [facility] Outpatient Attender: Patric Taveras MDAttender: PATRIC TAVERAS MD [facility] ER-CTCMEDONC 02/06/2019 08:52:00 AM EDT [facility] Outpatient Attender: Marielle ALVAREZ ER-LAB-PNP 01/24/2019 09:46:00 AM EDT [facility] Outpatient Attender: Marielle Salgado PAConsultant: BRANDON STOKES PA-C ER-LAB 01/19/2019 06:39:00 AM EDT [facility] Outpatient Attender: Marielle ALVAREZ ER-WHS 11/12/2018 12:23 :00 AM EST [facility] Outpatient Attender: PATRIC TAVERAS MD [facility] 08/08/2018 08:31:00 AM T [facility] Insurance Providers Payer name Policy type / Coverage type Policy ID Covered constitution party ID Covered constitution party's relationship to leal Policy Leal Plan Information EMEDNY [id number] SP [id number] MEDICAID [id number] S [id number] MEDICAID PROF FEES [id number] S E [id number] MEDICAID PROF FEES [id number] S E [id number] MEDICAID PROF FEES [id number] S E [id number] MEDICAID [id number] S [id number] [facility]-Medicaid [id number] ANSI-Medicaid [id number] ANSI-Medicaid [id number] ANSI-Medicaid [id number] ANSI-Medicaid [id number] ANSI-Medicaid [id number] ANSI-Medicaid [id number] ANSI-Medicaid [id number] ANSI-Medicaid [id number] ANSI-Medicaid [id number] ANSI-Medicaid [id number] ANSI-Medicaid [id number] ANSI-Medicaid [id number] ANSI-Medicaid [id number] ANSI-Medicaid [id number] ANSI-Medicaid [id number] ANSI-Medicaid [id number] ANSI-Medicaid [id number] ANSI-Medicaid [id number] ANSI-Medicaid [id number] ANSI-Medicaid [id number] ANSI-Medicaid [id number] ANSI-Medicaid [id number] ANSI-Medicaid [id number] ANSI-Medicaid [id number] ANSI-Medicaid [id number] ANSI-Medicaid [id number] [facility]-Medicaid [id number] [facility]-Medicaid [id number] [facility]-Medicaid [id number] ANSI-Medicaid [id number] [facility] [id number] SELF-PAY UNAVAILABLE S UNAVAILA BLE SELF-PAY UNAVAILABLE S UNAVAILA BLE MEDICAID [id number] S [id number] MEDICAID [id number] S [id number] [facility] [id number] S [id number] BLUE CROSS [id number] [facility] [id number] BLUE CROSS [id number] [facility] [id number] Problems, Conditions, and Diagnoses Code Display Name Description Problem Type Effective Dates Data Source(s) N28.89 [id number] Right kidney mass Problem 10/21/2020 12:00:0 0 AM EST eCW1 ([facility]) Z01.818 Pre-procedure evaluation check Preop testing Problem 10/02/2020 12:00:00 AM EST eCW1 ([facility]) N28.89 Renal mass Renal mass Problem 10/02/2020 12:00:00 AM ES T eCW1 ([facility]) Z96.652 [id number] History of total left knee replacemen t Problem 09/30/2020 12:00:00 AM EST eCW1 ([facility]) N28.89 [id number] Right renal mass Problem 09/17/2020 12:00:00 AM EST eCW1 ([facility]) N94.9 [id number] Adnexal cyst Problem 09/17/2020 12:00:00 AM EST eCW1 ([facility]) E27.8 [id number] Right adrenal mass Problem 09/14/2020 12:00:00 AM EST eCW1 ([facility]) M17.12 [id number] Primary osteoarthritis of left knee Pr oblem 02/26/2020 12:00:00 AM EDT eCW1 ([facility]) M17.12 [id number] Primary osteoarthritis of left knee Pr oblem 02/26/2020 12:00:00 AM EDT eCW1 ([facility]) N28.89 Other specified disorders of kidney and ureter OTHER SPECIFIED DISORDERS OF KIDNEY AND Diagnosis 10/20/2020 09:07:00 AM [facility] Z01.818 Encounter for other preprocedural examin ation ENCOUNTER FOR OTHER PREPROCEDURAL EXAMINATION Diagnosis 10/20/2020 09:07:00 AM [facility] Z01.812 Encounter for preprocedural laboratory e xamination ENCOUNTER FOR PREPROCEDURAL LABORATORY E Diagnosis 10/15/2020 12:00:00 AM [facility] M85.862 Other specified disorders of bone densit y and structure, left lower leg OTH DISRD OF BONE DENSITY AND STRUCTURE, LEFT LOWE Diagnosis 12:36:00 AM [facility] M17.12 Unilateral primary osteoarthritis, left knee UNILATERAL PRIMARY OSTEOARTHRITIS, LEFT KNEE Diagnosis 10/01/2020 12:36:00 AM [facility] K57.90 Diverticulosis of intestine, part unspecified, without perforation or abscess without bleeding DVRTCLOS OF INTEST, PART UNSP, W/O PERF OR ABSCESS Diagnosis 09/25/2020 02:26:00 AM [facility] N83.202 UNSPECIFIED OVARIAN CYST, LEFT SIDE UNSPECIFIED OVARIAN CYST, LEFT SIDE Diagnosis 09/25/2020 02:26:00 AM [facility] N83.201 UNSPECIFIED OVARIAN CYST, RIGHT SIDE UNS PECIFIED OVARIAN CYST, RIGHT SIDE Diagnosis 09/25/2020 02:26:00 AM [facility] K76.89 Other specified diseases of liver OTHER SPECIFIE D DISEASES OF LIVER Diagnosis 09/25/2020 02:26:00 AM [facility] K76.0 Fatty (change of) liver, not elsewhere c lassified FATTY (CHANGE OF) LIVER, NOT ELSEWHERE CLASSIFIED Diagnosis 09/25/2020 02:26:00 AM [facility] N94.9 Unspecified condition associ ated with female genital organs and menstrual cycle UNSP COND ASSOC W FEMALE GENITAL ORGANS AND MENSTR Diagnosis 09/25/2020 02:26:00 AM [facility] C64.1 Malignant neoplasm of right kidney, exce pt renal pelvis MALIGNANT NEOPLASM OF RIGHT KIDNEY, EXCEPT RENAL PELVIS Diagnosis 09/25/2020 02:26:00 AM [facility] Z79.82 CHCF (current) use of aspirin INTERMEDIATE (CU RRENT) USE OF ASPIRIN Diagnosis 09/24/2020 08:55:00 AM [facility] Z96.652 Presence of left artificial knee joint P RESENCE OF LEFT ARTIFICIAL KNEE JOINT Diagnosis 09/24/2020 08:55:00 AM [facility] B96.89 Other specified bacterial ag ents as the cause of diseases classified elsewhere OTH BACTERIAL AGENTS THE CAUSE OF DISEASES CLAS Diagnosis 09/24/2020 08:55:00 AM [facility] N39.0 Urinary tract infection, site not specif ied URINARY TRACT INFECTION, SITE NOT SPECIFIED Diagnosis 09/24/2020 08:55:00 AM [facility] Z92.3 Personal history of irradiation PERSONAL HISTORY OF IR RADIATION Diagnosis 09/24/2020 08:55:00 AM [facility] 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 C50.419 Diagnosis 09/24/2020 08:55:00 AM [facility] Z85.3 Personal history of malignant neoplasm o f breast PERSONAL HISTORY OF MALIGNANT NEOPLASM OF BREAST Diagnosis 09/24/2020 08:55:00 AM [facility] E27.8 Other specified disorders of adrenal gla nd OTHER SPECIFIED DISORDERS OF ADRENAL GLAND Diagnosis 09/16/2020 09:50:00 AM EST [facility] Z47.1 Aftercare following joint replacement gaxiola rgery AFTERCARE FOLLOWING JOINT REPLACEMENT SURGERY Diagnosis 09/15/2020 07:53:00 AM EST [facility] Z51.89 Encounter for other specified aftercare ENCOUNTER FOR OTHER SPECIFIED AFTERCARE Diagnosis 09/15/2020 07:53:00 AM EST [facility] I10 Essential (primary) hypertension ESSENTIAL (PRIMARY) H YPERTENSION Diagnosis 07/30/2020 07:00:00 AM [facility] E55.9 Vitamin D deficiency, unspecified VITAMIN D DEFI CIENCY, UNSPECIFIED Diagnosis 07/30/2020 06:04:00 AM [facility] R73.03 PREDIABETES PREDIABETES Diagnosis 07/30/2020 06:04:00 AM [facility] E78.5 Hyperlipidemia, unspecified HYPERLIPIDEMIA, UNSPECIFIE D Diagnosis 07/30/2020 06:04:00 AM [facility] Y93.9 Activity, unspecified ACTIVITY, UNSPECIFIED Diagnosis 06/26/2020 12:24:00 AM [facility] Y99.9 Unspecified external cause status UNSPECIFIED EX TERNAL CAUSE STATUS Diagnosis 06/26/2020 12:24:00 AM [facility] Y92.[address] or not applicable UNSPECIFIED PLACE OR NOT APPLICABLE Diagnosis 06/26/2020 12:24:00 AM [facility] X58.XXXA Exposure to other specified factors, ini tial encounter EXPOSURE TO OTHER SPECIFIED FACTORS, INITIAL ENCOU Diagnosis 06/26/2020 12:24:00 A M [facility] M71.22 Synovial cyst of popliteal space [Saravia] , left knee SYNOVIAL CYST OF POPLITEAL SPACE [SARAVIA], LEFT KNE Diagnosis 06/26/2020 12:24:00 AM [facility] M22.42 Chondromalacia patellae, left knee CHONDROMALACI A PATELLAE, LEFT KNEE Diagnosis 06/26/2020 12:24:00 AM [facility] M25.462 Effusion, left knee EFFUSION, LEFT KNEE Diagnosis 0 06/26/2020 12:24:00 AM [facility] S83.242A Other tear of medial meniscu s, current injury, left knee, initial encounter OTH TEAR OF MEDIAL MENISCUS, CURRENT INJURY, LEFT Diagnosis 06/26/2020 12:24:00 AM EDT [facility] K27.9 Peptic ulcer, site unspecifi ed, unspecified as acute or chronic, without hemorrhage or perforation PEPTIC ULC, SITE UNSP, UNSP AC OR CHR , W/O HEMOR OR PERF Diagnosis 05/26/2020 06:10:00 AM EDT [facility] K27.9 Peptic ulcer, site unspecifi ed, unspecified as acute or chronic, without hemorrhage or perforation PEPTIC ULC, SITE UNSP, UNSP AC OR CHR , W/O HEMOR OR PERF Diagnosis 05/15/2020 09:32:00 AM EDT [facility] M25.762 Osteophyte, left knee OSTEOPHYTE, LEFT KNEE Diagnosis 02/26/2020 03:18:00 PM [facility] M25.562 Pain in left knee PAIN IN LEFT KNEE Diagnosis 02/25 03:18:00 PM [facility] M85.80 Other specified disorders of bone density and structure, unspecified site OTH DISRD OF BONE DENSITY AND STRUCTURE, UNSPECIFI Diagnosis 02/25/2020 07:59:00 AM [facility] R10.13 Epigastric pain EPIGASTRIC PAIN Diagnosis 09/23/2019 08:2 5:00 AM [facility] K21.0 Gastro-esophageal reflux disease with es ophagitis GASTRO-ESOPHAGEAL REFLUX DISEASE WITH ESOPHAGITIS Diagnosis 09/23/2019 08:25:00 AM [facility] B96.81 Helicobacter pylori [H. pylo ri] as the cause of diseases classified elsewhere HELICOBACTER PYLORI THE CAUSE OF DISEASES CLASS Diagnosis 09/23/2019 08:25:00 AM [facility] K29.50 Unspecified chronic gastritis without bl eeding UNSPECIFIED CHRONIC GASTRITIS WITHOUT BLEEDING Diagnosis 09/23/2019 08:25:00 AM [facility] Z80.0 Family history of malignant neoplasm of digestive organs FAMILY HISTORY OF MALIGNANT NEOPLASM OF Diagnosis 09/23/2019 08:25:00 AM [facility] K20.9 Esophagitis, unspecified ESOPHAGITIS, UNSPECIFIED Diag nosis 09/23/2019 08:25:00 AM [facility] K29.60 Other gastritis without bleeding OTHER GASTRITIS WITHOUT BLEEDING Diagnosis 09/23/2019 08:25:00 AM [facility] Z78.0 Asymptomatic menopausal state ASYMPTOMATIC MENOPAUSAL STATE Diagnosis 08/28/2019 08:19:00 AM [facility] M17.0 Bilateral primary osteoarthritis of knee BILATERAL PRIMARY OSTEOARTHRITIS OF KNEE Diagnosis 08/28/2019 08:19:00 [facility] Surgeries/Procedures Procedure Description Date Indications Data Source(s) OFFICE OUTPATIENT VISIT 10 MINUTES OFFICE/OUTPATIENT VISIT E ST 05/15/2020 12:00:00 AM EDT [facility] PHYSICIAN TELEPHONE EVALUATION 11-20 MIN 01/23/2020 12 :00:00 AM EDT eCW1 ([facility]) Results ID Date Data Source [id number] 10/26/2020 05:28:00 PM [facility]andro hastings Patient Name: YANI RODRÍGUEZ Date of : [birth year]Unit Number: [id number] Admission Status: REG RCROrdering Physician: Therapy Treatment NotePatient Name: YANI RODRÍGUEZ LDate of : 1955Date of Service: 10/26/2020 05:07 PMMedical Record #: [id number] #: [id number] Therapist: Manuel Osheader: Outpatient Therapy ClinicProvider #:SOC Date: 09/01/2020-- Primary Diagnosis --Description: Aftercare following joint replacement surgeryCode: Z47.1Onset Date: 08/28/2020-- Other Diagnosis --Description: Presence of left artificial knee jointCode: Z96.652Onset Date: 08/31/2020Subjective Comments: Patient c/o pain above the knee cap and posterior to theknee. Patient had Left TKR on 08/25/20. Patient says she slept better lastnight. Her C pap recorded that she slept for 7 hours.Time In: 03:15Time Out: 04:00-- PT Interventions and CPT Codes Consisted of --EXERCISECPT Code: 27029 Modifiers: Minutes: 40 Units: 3Total Minutes: 40 Total Timed Minutes: 40 Total Untimed Minutes: 0Total Units: 3 Total Timed Units: 3 Total Untimed Units: 0Intervention Comments: Patient performed resistive exercises in supine,sitting , prone and standing. Instead of doing the parallel bars exercises,therapist tried to have Patient simulate her return to work testing whichincludes kneeling and getting up. Because kneeling on prosthetic knee iscontraindicated, therapist tried to have Patient try to kneel on the rightwhile keeping the left in a squatting position but she couldn't do it. Shestarted to break down. Therapist reminded her that she is not going back towork tomorrow and that by seeing her weakness, therapist can figure out whatPatient will need to be able to get back to work. Therapist practiced doingthe same thing in the parallel bars. First with a platform with one riser kay pillow. Using the parallel bars, she was able to get down and get up. Thatgave her confidence. Therapistthen took the risers off which lowered her closer to the ground. Once againshe was able to get down and get back up. Therapist then took the platformand just had her half knee on the pillow and she was able to do it. WhenPatient is cleared to go back to therapy after her unrelated proceduretomorrow, emphasis of treatment will be placed on how Patient will be able toreplicate what she just did while working on the BTE. Patient felt better bythe time she left, knowing that with proper support, she will be able to do it.Pain In: Not applicablePain Out: Not applicable-- Progressive Exercises --mat exercisesQuantity: 2# Unit: Sets: Reps: 15LAQQuantity: 2# Unit: Sets: Reps: 15sit to standQuantity: Unit: Sets: Reps: 15Discharge Planning was Discussed with Patient/Caregiver? NoSigned: Dayana Kramer, PTState License #: [place] [id number]/Time Signed: 10/26/2020 5:25:35 PM Name Value Range Interpretation Code Description Data April rce(s) Supporting Document(s) ID Date Data Source [id number] 10/23/2020 11:06:00 AM EST [facility] Patient Name: YANI RODRÍGUEZ Date of : [birth year]Unit Number: [id number] Admission Status: REG RCROrdering Physician: Therapy Treatment NotePatient Name: YANI RODRÍGUEZ LDate of : 1955Date of Service: 10/23/2020 10:54 AMMedical Record #: [id number] #: [id number] Therapist: DINO Oshearofarooqder: Outpatient Therapy ClinicProvider #:SOC Date: 09/01/2020-- Primary Diagnosis --Description: Aftercare following joint replacement surgeryCode: Z47.1Onset Date: 08/28/2020-- Other Diagnosis --Description: Presence of left artificial knee jointCode: Z96.652Onset Date: 08/31/2020Subjective Comments: Patient c/o pain above the knee cap and posterior to theknee. Patient had Left TKR on 08/25/20. Patient denies any pain. She said shestill cant sleep through the night but she has a lot in her mind as well. Shegoes to bed at 10 and then wakes up at midnight. She falls asleep and thenwakes up again about 1:30 like clockworkTime In: 09:50Time Out: 10:45-- PT Interventions and CPT Codes Consisted of --HOT PACK/COLD PACKCPT Code: 86337 Modifiers: Minutes: Units:EXERCISECPT Code: 79341 Modifiers: Minutes: 30 Units: 2Total Minutes: 30 Total Timed Minutes: 30 Total Untimed Minutes: 0Total Units: 2 Total Timed Units: 2 Total Untimed Units: 0Intervention Comments: Patient performed resistive exercises. Exercises weredone in supine, sitting , prone and standing. Step up and down was progressedto regular step. Going up was more challenging than going down when climbingup from behind. She was given p roprioception exercise with T band and pillow. She lost balance during contralateral hip abd on pillow but regained herbalance. She used the scifit/ bike and nustep. Initial flexion Active rangeof motion was 103 degrees and she was at 105 by the time she did the lastrep. With push, therapist was able to get her flexion to 110easily. Patient is pleased.Pain In: 0/10Pain Out: 0/10-- Progressive Exercises --mat exercisesQuantity: 2# Unit: Sets: Reps: 15LAQQuantity: 2# Unit: Sets: Reps: 15standing,// bar exercises: marching, hip abd, hip flex, hams curlsQuantity: 2# Unit: Sets: Reps: 15sit to standQuantity: Unit: Sets: Reps: 15scifitQuantity: Unit: seat 4 Sets: L2.5 Reps: 10 minutesnustepQuantity: Unit: seat 8 Sets: L3 Reps: 10minstep up/downQuantity: 1 riser/no riser Unit: Sets: Reps: 15hams curlsQuantity: 2# Unit: Sets: Reps: 15stairs: with alternate stepsQuantity: regular Unit: Sets: Reps: 15 stepst band with contralateral sideQuantity: orange Unit: pillow Sets: Reps: 10Discharge Planning was Discussed with Patient/Caregiver? NoSigned: Dayana Kramer, PTState License #: [place] [id number]/Time Signed: 10/23/2020 11:03:55 AM Name Value Range Interpretation Code Description Data April rce(s) Supporting Document(s) ID Date Data Source [id number] 10/22/2020 11:00:00 AM EST [facility] Name Value Range Interpretation Code Description Data April rce(s) Supporting Document(s) SARS coronavirus 2 RNA Not Detected [facility] This lab was ordered by [place] [facility] and reported by [facility]. ID Date Data Source [id number] 10/24/2020 11:11:00 AM EST [facility] Performed at: [facility] [employer] [place] [address] [id number] Director: Tayla Licona PhD, Phone: [phone] Name Value Range Interpretation Code Description Data April rce(s) Supporting Document(s) SARS-CoV-2, HEIDI Not Detected Not Detected [facility] This nucleic acid amplification test was developed and itsperformance characteristics determined by [facility]. Nucleic acid amplification tests include PCRand TMA. This test has not been FDA cleared or approved.This test has been authorized by FDA under an Emergency UseAuthorization (EUA). This test is only authorized forthe duration of time the declaration that circumstancesexist justifying the authorization of the emergency use ofin vitro diagnostic tests for detection of SARS-CoV-2 virusand/or diagnosis of COVID-19 infection under xtwdbxo151(b)(1) of the Act, 21 U.S.C. 360bbb-3(b) (1), unless theauthorization is terminated or revoked sooner.When diagnostic testing is negative, the possibility of afalse negative result should be considered in the contextof a patient's recent exposures and the presence ofclinical signs and symptoms consistent with COVID-19. Anindividual without symptoms of COVID-19 and who is notshedding SARS-CoV-2 virus would expect to have a negative(not detected) result in this assay.Methodology: Nucleic Acid Amplification (HEIDI) ID Date Data Source [id number] 10/21/2020 11:33:00 AM EST [facility] Patient Name: YNAI RODRÍGUEZ Date of : [birth year]Unit Number: [id number] Admission Status: [facility] Physician: Therapy Treatment NotePatient Name: YANI RODRÍGUEZ LDate of : 1955Date of Service: 10/21/2020 11:09 AMMedical Record #: [id number] #: [id number] Therapist: DINO Oshearovider: Outpatient Therapy ClinicProvider #:SOC Date: 09/01/2020-- Primary Diagnosis --Description: Aftercare following joint replacement surgeryCode: Z47.1Onset Date: 08/28/2020-- Other Diagnosis --Description: Presence of left artificial knee jointCode: Z96.652Onset Date: 08/31/2020Subjective Comments: Patient c/o pain above the knee cap and posterior to theknee. Patient had Left TKR on 08/25/20. Patient denies pain but achy andstiff. She woke up in the middle of the night due to stiffness that she didher bike for a few minutes to loosen it up before going back to bed.Time In: 10:00Time Out: 11:00-- PT Interventions and CPT Codes Consisted of --EXERCISECPT Code: 18548 Modifiers: Minutes: 30 Units: 2Total Minutes: 30 Total Timed Minutes: 30 Total Untimed Minutes: 0Total Units: 2 Total Timed Units: 2 Total Untimed Units: 0Intervention Comments: Patient performed resistive exercises with increasedweight without problem.Active range of motion is good despite felling stiff.She did not require any stretching.Exercises were done in supine, sitting ,prone and standing. She was given proprioception exercise with T band and didvery well. She used the scifit/ bike and nustep. She had the bike with seatat 4 right away. She is continues to do very well.Pain In: 0/10Pain Out: 0/10-- Progressive Exercises --mat exercisesQuantity: 2# Unit: Sets: Reps: 15LAQQuantity: 2# Unit: Sets: Reps: 15standing,// bar exercises: marching, hip abd, hip flex, hams curlsQuantity: 2# Unit: Sets: Reps: 15sit to standQuantity: Unit: Sets: Reps: 15scifitQuantity: Unit: seat 4 Sets: L2.5 Reps: 10 minutesnustepQuantity: Unit: seat 8 Sets: L3 Reps: 10minstep up/downQuantity: 1 riser/no riser Unit: Sets: Reps: 15hams curlsQuantity: 2# Unit: Sets: Reps: 15unilateral stanceQuantity: Unit: Sets: Reps: 3 mint band with contralateral sideQuantity: orange Unit: Sets: Reps: 10Discharge Planning was Discussed with Patient/Caregiver? NoSigned: Dayana Kramer, PTState License #: [place] [id number]/Time Signed: 10/21/2020 11:15:53 AM Name Value Range Interpretation Code Description Data April rce(s) Supporting Document(s) ID Date Data Source [id number] 10/20/2020 10:23:00 AM EST [facility] Name Value Range Interpretation Code Description Data April rce(s) Supporting Document(s) GLU 94 mg/dL 70-110 [facility] Patients taking Sulfasalazine may have f alsely depressedGlucose levels. Patients taking Sulfapyridine may havefalsely elevated Glucose levels. Patients should be drawnfor Glucose before the initial administration of eitherdrug. BUN 22 mg/dL 7-23 [facility] CRE 0.828 mg/dL 0.500-1.300 [facility] GFR > 60 mL/min [facility] CHLORIDE 105 mmol/L 99-110 [facility] NA 144 mmol/L 136-147 [facility] POTASSIUM 4.6 mmol/L 3.5-5.1 [facility] TCO2 31 mmol/L 20-33 [facility] ANION GAP 12.6 10.0-20.0 [facility] CA 9.4 mg/dL 8.3-10.7 [facility] ID Date Data Source [id number] 10/20/2020 10:04:00 AM EST [facility] What anti-coagulants is pt. on ?? NONE Name Value Range Interpretation Code Description Data April rce(s) Supporting Document(s) APTT 25.5 SECONDS 21.2-31.2 [facility] NOTE NEW REFERENCE RANGE EFFECTIVE ID Date Data Source [id number] 10/20/2020 10:04:00 AM EST [facility] What anti-coagulants is pt. on ?? NONE Name Value Range Interpretation Code Description Data April rce(s) Supporting Document(s) INR 0.96 0.91-1.09 [facility] INR THERAPEUTIC RANGES Prophylaxis of ve nous thrombosis ] (high risk surgery) ]Treatment of venous thrombosis ]Treatment of pulmonary embolism ]Prevention of systemic embolism ] 2.0-3.0Tissue heart valves ]Acute myocardial infarction ]Valvular disease ]Atrial fibrillation ]Recurrent systemic embolism ] Mechanical prosthetic heart valves -------- 2.5-3.5 ID Date Data Source [id number] 10/20/2020 09:54:00 AM EST [facility] Name Value Range Interpretation Code Description Data April rce(s) Supporting Document(s) WBC 8.22 x10E3/uL 4.0-10.5 [facility] RBC 4.83 x10E6/uL 4.20-5.40 [facility] Hemoglobin 13.8 g/dL 12.0-16.0 [facility] Hematocrit 42.7 % 37.0-47.0 [facility] MCV 88.4 fL 81.0-99.0 [facility] MCH 28.6 pg 27.0-31.0 [facility] MCHC 32.3 g/dL 32.7-35.6 [facility] RDW 13.1 % 11.5-14.0 [facility] Platelet count 343 x10E3/uL 150-450 N [facility] ital MPV 9.4 fl 6.9-9.5 [facility] Neutrophils 65.9 % 34-64 [facility] Lymphocytes 23.1 % 25-45 [facility] Monocytes 7.4 % 1.7-10.6 [facility] Eosinophils 2.4 % 0.4-7.0 [facility] Basophils 0.6 % 0.1-2.0 [facility] Imm. Gran. 0.6 % 0.1-2.0 [facility] Abs. Neutro. 5.41 x10E3/uL 1.2-7.6 [facility] Abs. Lymph. 1.90 x10E3/uL 1.0-3.5 [facility] Abs. Bowman. 0.61 x10E3/uL 0.1-1.0 [facility] Abs. Eosin. 0.20 x10E3/uL 0.1-0.7 [facility] Abs. Baso. 0.05 x10E3/uL 0.0-0.1 [facility] Abs. Imm. Gran. 0.05 x10E3/uL 0.0-0.1 N [facility] spital ANRBC% 0 % 0 [facility] ID Date Data Source [id number] 10/14/2020 10:31:00 AM EST [facility] Patient Name: YANI RODRÍGUEZ Date of : [birth year]Unit Number: [id number] Admission Status: REG RCROrdering Physician: Therapy Treatment NotePatient Name: YANI RODRÍGUEZ LDate of : 1955Date of Service: 10/14/2020 10:06 AMMedical Record #: [id number] #: [id number] Therapist: Pilar Oshea: Outpatient Therapy ClinicProvider #:SOC Date: 09/01/2020-- Primary Diagnosis --Description: Aftercare following joint replacement surgeryCode: Z47.1Onset Date: 08/28/2020-- Other Diagnosis --Description: Presence of left artificial knee jointCode: Z96.652Onset Date: 08/31/2020Subjective Comments: Patient c/o pain above the knee cap and posterior to theknee. Patient had Left TKR on 08/25/20. Patient denies pain but withtightness.Time In: 09:15Time Out: 10:20-- PT Interventions and CPT Codes Consisted of --EXERCISECPT Code: 82006 Modifiers: Minutes: 30 Units: 2GAIT TRAININGCPT Code: 64184 Modifiers: Minutes: 10 Units: 1Total Minutes: 40 Total Timed Minutes: 40 Total Untimed Minutes: 0Total Units: 3 Total Timed Units: 3 Total Untimed Units: 0Intervention Comments: Patient walked in without AD. Because elevator wasbroke, she walked up the stairs to get to the department. She performedresistive exercises with increased weight without problem. She hassignificantly improved in her Active range of motion that stretching is nolonger necessary. Exercises were done in supine, sitting , prone andstanding. Active knee flexion in prone appears to be identical to the goodside. She received gait training in and outside the bars with emphasis onknee flexion. She was given proprioception exercise with T band and did verywell. She used the scifit/ bike and nustep. She had the bike with seat at 4right away. She is doing very well.Pain In: 0/10Pain Out: 0/10-- Progressive Exercises --mat exercisesQuantity: 2# Unit: Sets: Reps: 15LAQQuantity: 2# Unit: Sets: Reps: 15standing,// bar exercises: marching, hip abd, hip flex, hams curlsQuantity: 2# Unit: Sets: Reps: 15sit to standQuantity: Unit: Sets: Reps: 15scifitQuantity: Unit: seat 4 Sets: L2 Reps: 10 minutesnustepQuantity: Unit: seat 8 Sets: L3 Reps: 10minstep up/downQuantity: 1 riser/no riser Unit: Sets: Reps: 15hams curlsQuantity: 2# Unit: Sets: Reps: 15t band with contralateral sideQuantity: orange Unit: Sets: Reps: 10-- Specific Joints ---- Knee Flexion Current --Strength Right/Left: 5/4 Active ROM Right/Left: /107deg Passive ROMRight/Left: /100deg-- Knee Flexion Goal --Strength Right/Left: /4 Active ROM Right/Left: /100deg Passive ROMRight/Left: /-- Knee Extension Current --Strength Right/Left: 5/4 Active ROM Right/Left: /0deg Passive ROMRight/Left: /0deg-- Knee Extension Goal --Strength Right/Left: /4 Active ROM Right/Left: /0deg Passive ROMRight/Left: /Discharge Planning was Discussed with Patient/Caregiver? NoSigned: Dayana Kramer, PTState License #: [place] [id number]/Time Signed: 10/14/2020 10:29:16 AM Name Value Range Interpretation Code Description Data April rce(s) Supporting Document(s) ID Date Data Source [id number] 10/12/2020 03:44:00 PM EST [facility] Patient Name: YANI RODRÍGUEZ Date of : [birth year]Unit Number: [id number] Admission Status: REG RCROrdering Physician: Therapy Treatment NotePatient Name: YANI RODRÍGUEZ LDate of : 1955Date of Service: 10/12/2020 03:34 PMMedical Record #: [id number] #: [id number] Therapist: DINO Oshearovider: Outpatient Therapy ClinicProvider #:SOC Date: 09/01/2020-- Primary Diagnosis --Description: Aftercare following joint replacement surgeryCode: Z47.1Onset Date: 08/28/2020-- Other Diagnosis --Description: Presence of left artificial knee jointCode: Z96.652Onset Date: 08/31/2020Subjective Comments: Patient c/o pain above the knee cap and posterior to theknee. Patient had Left TKR on 08/25/20. Patient denies pain but withtightness. She says she is having a hard time sleeping but does notattribute it solely to her knee or her sciatica. "I think I just have toomuch on my mind".Time In: 09:25Time Out: 10:30-- PT Interventions and CPT Codes Consisted of --EXERCISECPT Code: 64650 Modifiers: Minutes: 30 Units: 2GAIT TRAININGCPT Code: 40319 Modifiers: Minutes: 10 Units: 1Total Minutes: 40 Total Timed Minutes: 40 Total Untimed Minutes: 0Total Units: 3 Total Timed Units: 3 Total Untimed Units: 0Intervention Comments: Patient walked in without AD. She received passivestretches and performed resistive exercises. Exercises were done in supine,sitting , prone and standing. Prone stretches don't appear to beuncomfortable like it did. Active knee flexion in prone appears to beidentical to the good side. She received gait training in and outside thebars with emphasis on knee flexion but she is doing much better in thataspect, not requiring as much cueing. She used the scifit/ bike and nustep.She had the bike with seat at 5 only for half a minute and then moved tonumber 4 position. She isprogressing well towards her goals.Pain In: 0/10Pain Out: 0/10-- Progressive Exercises --mat exercisesQuantity: 1.5# Unit: Sets: Reps: 15LAQQuantity: 1.5# Unit: Sets: Reps: 15standing,// bar exercises: marching, hip abd, hip flex, hams curlsQuantity: 1.5# Unit: Sets: Reps: 15sit to standQuantity: Unit: Sets: Reps: 15scifitQuantity: Unit: seat 4 Sets: L2 Reps: 10 minutesnustepQuantity: Unit: seat 8 Sets: L3 Reps: 10minwalk forward, back , sidestep in the parallel barsQuantity: Unit: Sets: Reps: 60 feetstep up/downQuantity: 1 riser/no riser Unit: Sets: Reps: 15hams curlsQuantity: 1.5# Unit: Sets: Reps: 15passive stretching to improve knee flexion: supine, proneQuantity: Unit: 20 sec hold Sets: Reps: 5unilateral stanceQuantity: Unit: Sets: Reps: 3 minDischarge Planning was Discussed with Patient/Caregiver? NoSigned: Dayana Kramer, PTState License #: [place] [id number]/Time Signed: 10/12/2020 3:43:15 PM Name Value Range Interpretation Code Description Data April rce(s) Supporting Document(s) ID Date Data Source [id number] 10/08/2020 12:43:00 PM EST [facility] Patient Name: YANI RODRÍGUEZ Date of : [birth year]Unit Number: [id number] [facility] Phys[facility]: Therapy Treatment NotePatient Name: YANI RODRÍGUEZ LDate of : 1955Date of Service: 10/08/2020 12:36 PMMedical Record #: [id number] #: [id number] Therapist: DINO Oshearovider: Outpatient Therapy ClinicProvider #:SOC Date: 09/01/2020-- Primary Diagnosis --Description: Aftercare following joint replacement surgeryCode: Z47.1Onset Date: 08/28/2020-- Other Diagnosis --Description: Presence of left artificial knee jointCode: Z96.652Onset Date: 08/31/2020Subjective Comments: Patient c/o pain above the knee cap and posterior to theknee. Patient had Left TKR on 08/25/20. Patient denies pain but withtightness. She walked in without AD but continues to have decreased kneeflexion during swing phaseTime In: 08:45Time Out: 09:45-- PT Interventions and CPT Codes Consisted of --EXERCISECPT Code: 66669 Modifiers: Minutes: 30 Units: 2GAIT TRAININGCPT Code: 39962 Modifiers: Minutes: 10 Units: 1Total Minutes: 40 Total Timed Minutes: 40 Total Untimed Minutes: 0Total Units: 3 Total Timed Units: 3 Total Untimed Units: 0Intervention Comments: Patient performed resistive exercises and receivedpassive stretches. Exercises were done in supine, sitting , prone andstanding. In supine she had 100 degress of active flexion despite feeling oftightness.Prone stretches appear to be the most uncomfortable for her. Shereceived gait training in and outside the bars with emphasis on kneeflexion.She used the scifit/ bike and nustep. She tolerated the bike withseat initially at 5 and then moved to number 4 position towards the laterhalf. She continues to do very well. She will ice at homePain In: 0/10Pain Out: 0/10-- Progressive Exercises --mat exercisesQuantity: 1.5# Unit: Sets: Reps: 15LAQQuantity: 1.5# Unit: Sets: Reps: 15standing,// bar exercises: marching, hip abd, hip flex, hams curlsQuantity: 1.5# Unit: Sets: Reps: 15sit to standQuantity: Unit: Sets: Reps: 15scifitQuantity: Unit: seat 4 Sets: L2 Reps: 10 minutesnustepQuantity: Unit: seat 8 Sets: L3 Reps: 10minwalk forward, back , sidestep in the parallel barsQuantity: Unit: Sets: Reps: 60 feetstep up/downQuantity: 1 riser/no riser Unit: Sets: Reps: 15hams curlsQuantity: 1.5# Unit: Sets: Reps: 15stairs: with alternate stepsQuantity: Unit: Sets: Reps: 15 stepspassive stretching to improve knee flexion: supine, proneQuantity: Unit: 20 sec hold Sets: Reps: 5Discharge Planning was Discussed with Patient/Caregiver? NoSigned: Dayana Kramer, PTState License #: [place] [id number]/Time Signed: 10/08/2020 12:41:14 PM Name Value Range Interpretation Code Description Data April rce(s) Supporting Document(s) ID Date Data Source [id number] 10/06/2020 10:26:00 AM EST [facility] Patient Name: YANI RODRÍGUEZ Date of : [birth year]Unit Number: [id number] Admission Status: REG RCROrdering Physician: Therapy Treatment NotePatient Name: YANI RODRÍGUEZ LDate of : 1955Date of Service: 10/06/2020 10:00 AMMedical Record #: [id number] #: [id number] Therapist: DINO Oshearovider: Outpatient Therapy ClinicProvider #:SOC Date: 09/01/2020-- Primary Diagnosis --Description: Aftercare following joint replacement surgeryCode: Z47.1Onset Date: 08/28/2020-- Other Diagnosis --Description: Presence of left artificial knee jointCode: Z96.652Onset Date: 08/31/2020Subjective Comments: Patient c/o pain above the knee cap and posterior to theknee. Patient had Left TKR on 08/25/20. Patient denies pain but withtightness. She walked in without AD but still with stiff kneeTime In: 08:15Time Out: 09:30-- PT Interventions and CPT Codes Consisted of --EXERCISECPT Code: 02286 Modifiers: Minutes: 30 Units: 2GAIT TRAININGCPT Code: 52254 Modifiers: Minutes: 10 Units: 1Total Minutes: 40 Total Timed Minutes: 40 Total Untimed Minutes: 0Total Units: 3 Total Timed Units: 3 Total Untimed Units: 0Intervention Comments: Patient performed resistive exercises and receivedpassive stretches. Exercises were done in supine, sitting , prone andstanding. Prone stertches appear to be the most uncomfortable for her. Sheused the scifit/ bike and nustep. She tolerated the bike with seat in number4 position which indicates good knee flexion. She continues to do very well.She will ice at homePain In: 0/10Pain Out: 0/10-- Progressive Exercises --mat exercisesQuantity: 1.5# Unit: Sets: Reps: 15LAQQuantity: 1.5# Unit: Sets: Reps: 15standing,// bar exercises: marching, hip abd, hip flex, hams curlsQuantity: 1.5# Unit: Sets: Reps: 15sit to standQuantity: Unit: Sets: Reps: 15scifitQuantity: Unit: seat 4 Sets: L2 Reps: 10 minutesnustepQuantity: Unit: seat 8 Sets: L3 Reps: 10minwalk forward, back , sidestep in the parallel barsQuantity: Unit: Sets: Reps: 60 feetstep up/downQuantity: 1 riser/no riser Unit: Sets: Reps: 15hams curlsQuantity: 1.5# Unit: Sets: Reps: 15stairs: with alternate stepsQuantity: Unit: Sets: Reps: 15 stepspassive stretching to improve knee flexion: supine, proneQuantity: Unit: 20 sec hold Sets: Reps: 5Discharge Planning was Discussed with Patient/Caregiver? NoSigned: Dayana Kramer, PTState License #: [place] [id number]/Time Signed: 10/06/2020 10:13:52 AM Name Value Range Interpretation Code Description Data April rce(s) Supporting Document(s) ID Date Data Source [id number] 10/01/2020 03:42:00 PM EST [facility] Exam Number: [id number] OF EXAMINATIO N: 10/01/2020 14:53 ESTTECHNIQUE: 3 views right knee were obtained.HISTORY: PainFINDINGS:Bones are mildly osteopenic. Severe osteoarthritis of medial kneecompartment is noted. There is no fracture or dislocation.IMPRESSION:Mild osteopenia. Severe osteoarthritis of the medial knee compartment.Electronically signed in PS360 by: Jose Martin Pat M.D. 10/01/202015:30 EST Reported By: Fanny PAT M.D. Signed By: Mary PAT M.D. Name Value Range Interpretation Code Description Data April rce(s) Supporting Document(s) ID Date Data Source [id number] 09/30/2020 11:53:00 AM EST [facility] Patient Name: YANI RODRÍGUEZ Date of : [birth year]Unit Number: [id number] Admission Status: REG RCROrdering Physician: Therapy Progress ReportPatient Name: YANI RODRÍGUEZ LDate of : 1955Date of Service: 09/30/2020 11:50 AMMedical Record #: [id number] #: [id number] Therapist: Manuel Osheader: Outpatient Therapy ClinicProvider #:SOC Date: 09/01/2020Visits From SOC: 10-- Patient Information --Address: [address] [place] [address], Zip: [place], [place], [address]Tpefhaobzq: UnknownGender: FemaleContact Person: HANNAH You Physician Name: BRODERICK Chatman Physician Number:# of Authorized Visits: 0Medicaid #: [id number] #:-- Primary Diagnosis --Description: Aftercare following joint replacement surgeryCode: Z47.1Onset Date: 08/28/2020-- Other Diagnosis --Description: Presence of left artificial knee jointCode: Z96.652Onset Date: 08/31/2020Subjective Comments: Patient c/o pain above the knee cap and posterior to theknee. Patient had Left TKR on 08/25/20. Patient denies pain but hastightness. Left leg and knee appears to be more swollen than usual but notred and no warmth to touch.There has been a change in Diagnosis: NoThere has been a change in Support System: NoPatient is making steady progress toward established goals:There has been adequate communication with all health care staff involved inthe implementation of the Plan of Care:Patient / Caregiver continues to concur with proposed [place] Plan:Level of Patient/Caregiver's satisfaction with Therapy:-- Functional Measures ---- Goals ---- Impairment Goals; Short Term --Patient will ambulate with cane in the community - MetPatient will walk without AD at homePatient will walk between rooms without difficulty - MetPatient will sit for an hour without difficulty - Not Met-- Functional Goals; [place] --Patient will walk in the community without AD - Not MetPatient will drive herself to physical therapy when cleared - Not MetPatient will stand for an hour with mild difficulty - Not MetPatient will walk a flight of stairs with mild difficulty - MetPatient will put shoes and socks on without difficulty - MetPatient / Whitley iver concurs with established treatment plan and goals: Yes-- Physical Findings ---- Pain --Site: Joint Pain - Knee - LeftAt Rest: 0/10; With Activity: 4/10Exacerbating Factors: movement; Walking;Relieving Factors: Ice to the affected area; Rest;Goals for Pain: Decrease pain to 2/10 at the most - Not MetPalpation Comments: slight warmth and swelling but incision is clean and dry.Lower Extremity Functional Scale Score: 38Today do you have difficulty at all with:1. Any of your usual work, housework, or school activities(1) Quite a Bit of Difficulty2. Your usual hobbies, recreational or sporting activities(1) Quite a Bit of Difficulty3. Getting into or out of the bath.(4) No Difficulty4. Walking between rooms(4) No Difficulty5. Putting on your shoes or socks(4) No Difficulty6. Squatting(0) Extreme Difficulty or Unable to Perform Activity7. Lifting an object, like a bag of groceries from the floor8. Performing light activities around your home.(4) No Difficulty9. Performing heavy activities arou nd your home(3) A Little Bit of Umwfbtjixh52. Getting into or out of your car(3) A Little Bit of Tnqgadtcpy90. Walking 2 blocks(3) A Little Bit of Pzhvdwwaso58. Walking a mile(0) Extreme Difficulty or Unable to Perform Hjbauqbh08. Going up or down 10 stairs (about 1 flight or stairs)(3) A Little Bit of Tnjyohlywt03. Standing for 1 hour(2) Moderate Vkzdhgaurh26. Sitting for 1 hour(2) Moderate Cgpxoklhyt92. Running on even ground(0) Extreme Difficulty or Unable to Perform Vxkxjleb75. Making a sharp turns while running fast(0) Extreme Difficulty or Unable to Perform Yjyitpmx51. Running on uneven ground(0) Extreme Difficulty or Unable to Perform Xsuxkgtq00. Hopping(0) Extreme Difficulty or Unable to Perform Vdtvencg96. Rolling over in bed(4) No DifficultyTotal Score: 3880(C) 1995 TIFF Guerrero (reprinted with permission)-- Specific Joints ---- Knee Flexion Initial --Strength Right/Left: 5/3+ Active ROM Right/Left: /75deg Passive ROMRight/Left: /-- Knee Flexion Current --Strength Right/Left: 5/4- Active ROM Right/Left: /95deg Passive ROMRight/Left: /100deg-- Knee Extension Initial --Strength Right/Left: 5/3+ Active ROM Right/Left: /20deg Passive ROMRight/Left: /-- Knee Extension Current --Strength Right/Left: 5/4- Active ROM Right/Left: /0deg Passive ROMRight/Left: /0deg-- Impairment Observations --Ambulatory with 2 wheeled walker with complete gait cycle though needsoccasional reminder to bend knee after toe off. She is able to get her leftleg up on the bed without assistance. She is able to do Straight leg raisewithout assistance-- Interventions/Plan --PT EVAL: MODERATE COMPLEXITY [id number] PACK/COLD PACK [id number] [id number] TRAINING 93038Vkxzouuag of PT: Two times weeklyDuration of PT: 6 weeksIntervention Comments: Patient walked in carrying her cane and not using it asan AD.She walked steadily. She performed supine, seated and standing exercises inthe parallel bars. She was given passive stretching in both supine and prone.She used the scifit and nustep. She was able to go through the cycle within aminute. She was at seat 9 and was just going back and forth when she firstgot in the bike a few weeks ago. Today, she started at seat 8 and was movedto seat 7. After a few minutes, she wanted to try going a little closer. Shewas placed on seat 6 and is still able to go through the cycle. It requiresmore range to be able to go through the cycle the lower the number so this roberto really good indication that her mobility is better. During gait training,emphasis was again given on knee flexion during swing phase. Patient has metsome of the goals. She is progressing very well.Signed: Dayana Kramer, PTState License #: [place] [id number]/Time Signed: 09/30/2020 11:51:12 AM Name Value Range Interpretation Code Description Data April rce(s) Supporting Document(s) ID Date Data Source [id number] 09/30/2020 11:14:00 AM [facility]ACH hastings Patient Name: YANI RODRÍGUEZ Date of : [birth year]Unit Number: [id number] Admission Status: REG RCROrdering Physician: Therapy Treatment NotePatient Name: YANI RODRÍGUEZ LDate of : 1955Date of Service: 09/30/2020 10:39 AMMedical Record #: [id number] #: [id number] Therapist: Pilar Oshea: Outpatient Therapy ClinicProvider #:SOC Date: 09/01/2020-- Primary Diagnosis --Description: Aftercare following joint replacement surgeryCode: Z47.1Onset Date: 08/28/2020-- Other Diagnosis --Description: Presence of left artificial knee jointCode: Z96.652Onset Date: 08/31/2020Subjective Comments: Patient c/o pain above the knee cap and posterior to theknee. Patient had Left TKR on 08/25/20. Patient denies pain but hastightness. Left leg and knee appears to be more swollen than usual but notred and no warmth to touch.Time In: 09:45Time Out: 11:00-- PT Interventions and CPT Codes Consisted of --EXERCISECPT Code: 69120 Modifiers: Minutes: 25 Units: 2GAIT TRAININGCPT Code: 82635 Modifiers: Minutes: 20 Units: 1Total Minutes: 45 Total Timed Minutes: 45 Total Untimed Minutes: 0Total Units: 3 Total Timed Units: 3 Total Untimed Units: 0Intervention Comments: Patient walked in carrying her cane and not using it asan AD. She walked steadily. She performed supine, seated and standingexercises in the parallel bars. She was given passive stretching in bothsupine and prone. She used the scifit and nustep. She was able to go throughthe cycle within a minute. She was at seat 9 and was just going back andforth when she first got in the bike a few weeks ago. Today, she started atseat 8 and was moved to seat 7. After a few minutes, she wanted to try goinga little closer. She was placed on seat 6 and is still able to go through thecycle. It requires more range to be able to go through the cycle the lowerthe number so this is areally good indication that her mobility is better. During gait training,emphasis was again given on knee flexion during swing phase. Patient has metsome of the goals. She is progressing very well.Pain In: 0/10Pain Out: 0/10-- Progressive Exercises --mat exercisesQuantity: 1.5# Unit: Sets: Reps: 15LAQQuantity: 1.5# Unit: Sets: Reps: 15weight shifting: forward, side, backQuantity: pillow Unit: Sets: Reps: 15standing,// bar exercises: marching, hip abd, hip flex, hams curlsQuantity: 1.5# Unit: Sets: Reps: 15sit to standQuantity: Unit: Sets: Reps: 15scifitQuantity: Unit: seat 6 Sets: Reps: 15 minutesnustepQuantity: Unit: seat 8 Sets: L3 Reps: 10minstep up/downQuantity: 1 riser/no riser Unit: Sets: Reps: 15hams curlsQuantity: 1.5# Unit: Sets: Reps: 15stairs: with alternate stepsQuantity: Unit: Sets: Reps: 15 stepspassive stretching to improve knee flexion: supine, proneQuantity: Unit: 20 sec hold Sets: Reps: 5Lower Extremity Functional Scale Score: 38/80Today do you have difficulty at all with:1. Any of your usual work, housework, or school activities(1) Quite a Bit of Difficulty2. Your usual hobbies, recreational or sporting activities(1) Quite a Bit of Difficulty3. Getting into or out of the bath.(4) No Difficulty4. Walking between rooms(4) No Difficulty5. Putting on your shoes or socks(4) No Difficulty6. Squatting(0) Extreme Difficulty or Unable to Perform Activity7. Lifting an object, like a bag of groceries from the floor8. Performing light activities around your home.(4) No Difficulty9. Performing heavy activities around your home(3) A Little Bit of Yhjeditugf17. Getting into or out of your car(3) A Little Bit of Gnmvjuqywo15. Walking 2 blocks(3) A Little Bit of Gzbcigewjg67. Walking a mile(0) Extreme Difficulty or Unable to Perform Jqqjgzax22. Going up or down 10 stairs (about 1 flight or stairs)(3) A Little Bit of Dbbmexrfhv91. Standing for 1 hour(2) Moderate Qfxnxaiehz30. Sitting for 1 hour(2) Moderate Midssfzdom42. Running on even ground(0) Extreme Difficulty or Unable to Perform Holjirqu48. Making a sharp turns while running fast(0) Extreme Difficulty or Unable to Perform Eddbrkhh77. Running on uneven ground(0) Extreme Difficulty or Unable to Perform Vfhjcbkl92. Hopping(0) Extreme Difficulty or Unable to Perform Xtxvxsfk83. Rolling over in bed(4) No DifficultyTotal Score: 38/80(C) 1995 TIFF Guerrero (reprinted with permission)-- Specific Joints ---- Knee Flexion Current --Strength Right/Left: 5/4- Active ROM Right/Left: /95deg Passive ROMRight/Left: /100deg-- Knee Flexion Goal --Strength Right/Left: /4 Active ROM Right/Left: /100deg Passive ROMRight/Left: /-- Knee Extension Current --Strength Right/Left: 5/4- Active ROM Right/Left: /0deg Passive ROMRight/Left: /0deg-- Knee Extension Goal --Strength Right/Left: /4 Active ROM Right/Left: /0deg Passive ROMRight/Left: /-- Goals ---- Impairment Goals; Short Term --Patient will ambulate with cane in the community - MetPatient will walk between rooms without difficulty - MetPatient will sit for an hour without difficulty - Not Met-- Functional Goals; Long-Term --Patient will walk in the community without AD - Not MetPatient will drive herself to physical therapy when cleared - Not MetPatient will stand for an hour with mild difficulty - Not MetPatient will walk a flight of stairs with mild difficulty - MetPatient will put shoes and socks on without difficulty - Met-- Pain Goal --Joint Pain - Knee - Left - Decrease pain to 2/10 at the most - Not MetDischarge Planning was Discussed with Patient/Caregiver? NoSigned: Dayana Kramer, PTState License #: [place] [id number]/Time Signed: 09/30/2020 11:11:55 AM Name Value Range Interpretation Code Description Data April rce(s) Supporting Document(s) ID Date Data Source [id number] 09/28/2020 10:29:00 AM EST [facility] [address] [address] FOLLOW UP NOTENAME: YANI RODRÍGUEZ LPHYSICIAN: JESSICA STEINJOSEFA MOSQUEDAATE OF SERVICE: 09/24/20DATE OF : [birth year]ACCOUNT #: [id number]: YANI RODRÍGUEZDate: Sep 24, 2020DOB: 1955Physician: Zack Kimball F.N.P.-B.C., M.S.N.Dr. Patric Taveras M.D., M.P.H.Logan Ortiz-Nereyda Wesley M.D.Dr. Wahib Zafar, M.D.Age: 64Note Title: Hematology/Medical Oncology Follow UpDiagnosis:Primary - C50.419 - Malig neoplasm of upper-outer quadrant of unsp femalebreast, Diagnosed Nov 14, 2012 (Active)History of Problems:Problems / Chief Complaints:Invasive ductal carcinoma of the right breast, pT1cN0 M0. ER/DC positive.HER-2/misha negative.Oncotype DX breast cancer recurrence score 11, low risk.off A.I. completed six years.History of Present Illness:She is status post left knee replacement in July, the patient has r ecoveredquite well, does not have any limited mobility. Patient was on aspirin dailypostoperative. Patient's had no complications after the surgery. Incidentallythe patient was told she had an ovarian cyst as well as a renal cyst/lesion.Patient scheduled for CT scan tomorrow to rule out malignancy of the kidney.Patient has had no erythrocytosis hematuria, elevated hematocrit on blood workprior. Patient's only history is breast cancer. Patient is no longer onanastrozole. Patient is on calcium and vitamin D. Patient has no complaints,no fevers no weight loss, no weight gain, no nausea no vomiting no diarrhea noflank pain no dysuria, no hematuria. She has been on aspirin post operativelybut no overt bleeding.Past Medical History:DiverticulosisDyslipidemiaH. Pylori gastritisOsteopeniaStage IA right sided breast cancerPast Surgical History:AppendectomyBreast biopsyTubal ligationLumpectomy and sentinel lymph node biopsy, right in 2011Cholecystectomy in 1977Allergies:No Known Allergies.Current Medications:Alendronate Sodium 35 mg (of 35 mg) Tablet Oral q 7 days (Start Date -unknown)Caltrate 600+D 2 Tablet (of 600 mg) Oral daily (Start Date - unknown)Colace 1 Tablet Capsule Oral daily PRN (Start Date - unknown)Fish Oil 2 Capsule (of 1000 mg) Oral b.i.d. (Start Date - unknown)HydroCHLOROthiazide 12.5 mg (of 12.5 mg) Tablet Oral daily (Start Date - unknown)Multivital 1 Tablet Oral (Start Date - unknown)Omeprazole 20 mg Capsule Delayed Release Oral (Start Date - unknown)Oxycodone-Acetaminophen 1 Tablet Oral four times a day PRN (Start Date -unknown)Vit D3 2 Tablet (of 1000 Units) Oral daily (Start Date - unknown)Social History:Ms. 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 Ms. RODRÍGUEZ has neversmoked. She has no history of drinking. She has indicated exposure to thefollowing products: no iv drug use.Ms. RODRÍGUEZ reports the following support systems: lives with spouse,significant other, family, or friends.Family History:Ms. RODRÍGUEZ's mother is alive: medical history includes Parkinson's disease.Ms. RODRÍGUEZ's father at age 77: medical history includes Metastaticesophageal cancer. There is no documented breast or ovarian cancer history inthe family.Review of Systems:ConstitutionalAbnormal - knee pain;EyesNormal - No significant visual difficulties. No diplopia.EndocrineNormal - No diabetes, thyroid disease or hormone replacement. No hot flashesor night sweats.BreastsNormal - No abnormal masses of breast, no nipple discharge or pain.RespiratoryAbnormal - sleep apneaCardiovascularNormal - No anginal chest pain, palpitations or orthopnea.Genitourinary (F)Abnormal - found a 2cm lesion; not clear if malignant; no description oflesion on US report.MusculoskeletalAbnormal - knee pain; osteopeniaIntegumentaryNormal - No chronic rashes, inflammation, ulcerations or skin changes.NeurologicNormal - No headache, blurred vision, and no areas of focal weakness ornumbness. Normal gait.PsychiatricNormal - No insomnia, depression, elvin or mood swings. No psychotropicdrugs.Vital Signs :Performed on Sep 24, 2020 09:78Pyidbh71.50 epRpuxld703.8 lbs(LOW)BSA (derived)2.09 sq.mBMI41.29 (HIGH)Dvprxbevgyi58.1 QClmyp60 /kghOxljebxnzvu08 /wpvGW184/82Pulse Oximetry (O2 Sat)96 %Fall RiskModerate RiskPerformance Status:Perf. Status is not available for this patient.Physical Exam:ConstitutionalNormal - Alert, cooperative, oriented. Mood and affect appropriate. Appearsclose to chronological age. Well nourished. Well developed.HeadNormal - Normocephalic; no scars.ENMTNormal - Sinuses are nontender. No oral exudates, ulcers, masses, thrush ormucositis. Oropharynx clear.Hematologic/LymphaticNormal - No petechiae or purpura. No tender or palpable lymph nodes in thecervical, supraclavicular or axillary area.RespiratoryNormal - Lungs are clear to auscultation without rhonchi or wheezing.ChestNormal - Chest is symmetric without chest wall deformities.BreastsAbnormal - right breast side of the brest ; lumpectomy 8 years ago;no masses noted; no erythemano ladno painnipples are not inverted; not tender.AbdomenNormal - Non-tender and non-distended. Good bowel sounds.Back/SpineNormal - No kyphosis, scoliosis, compression fractures. Non- tender topalpation.MusculoskeletalNormal - No tenderness or swelling, normal range of motion without obviousweakness.IntegumentaryNormal - No rashes, scars, or lesions suggestive of malignancy.PsychiatricNormal - Alert and oriented times three. Coherent speech. Verbalizesunderstanding of our discussions today.Laboratory:Test performed on Sep 24, 2020 10:40Omfrvb726 mmol/LPotassium4.6 mmol/EMrimkujs031 mmol/OXK225 mmol/LAnion Gap6.6 (LOW)BUN19 mg/dLCreatinine0.729 mg/dLCr Clearance (Est)135.6800 mL/mineGFR> 60 mL/xiyAawgxsr74 mg/dLCalcium9.2 mg/dLProtein, Total7.5 g/dLAlbumin4.0 g/dLGlobulin3.5 g/dLA/G Ratio1.1Bilirubin, Total0.4 mg/dLALT (SGPT)44 U/LAST (SGOT)16 U/LAlkaline Hwuvxeonlyu900 U/L(HIGH)Ldbaqabsgmcbha23.4 mIU/mLUa ColorYellowWBC7.14 x10E3/uLUa AppearanceClearRBC4.75 x10E6/uLUa GlucoseNegativ eHGB13.4 g/dLUa OyozfnmqfLhfttxagOST14.8 %Ua AaiogzbNlbxatovYPE67.1 fLUa Specific Gravity1.767CAA54.2 pgUa OnggiQpyfgOCRO39.3 g/dL(LOW)Ua pH5.5RDW13.4 %Ua ProteinNegativePlatelet Daawt673 x10E3/uLUa Urobilinogen0.2 mg/dLMPV9.7 fl(HIGH)Ua NitritesNegativeNeutrophils4.52 x10E3/uLUa Leukocyte Esterase2+Lymphocytes1.71 x10E3/uLMonocytes0.61 x10E3/uLEosinophils0.20 x10E3/uLBasophils0.07 x10E3/uLImmature Grans0.03 x10E3/uLNeutrophil %63.4 %Lymphocyte %23.9 %(LOW)Monocyte %8.5 %Eosinophil %2.8 %Basophils %1.0 %Immature Grans %0.4 %U Micro: RBC3-5 RBCs/HPFU Micro: EWG78-19 WBCs/HPFU Micro: BacteriaFewU Micro: Epithelial CellsModerateTest performed on Aug 01, 2019 11:25CA 27.2920.7 U/mLOther test results are not available for this patient.Impression:Stage IA invasive ductal carcinoma of the right breast. ER/DC positive.HER-2/misha negative. Status post lumpectomy and sentinel lymph node biopsy(09/2012) followed by postlumpectomy radiation.Stopped adjuvant anastrozole therapy after 6 years finished July 2019.Recent DEXA scan performed 07/2019 - osteopeniaon calcium and vitamin d.Status post knee surgery earlier in July, patient had an incidental findingof a 2 cm renal mass on ultrasound. Patient has to have a CT scan tomorrow.Patient was told this might be kidney cancer. Patient should haveerythropoietin level, repeat CBC today checked, sometimes kidney cancer canpresent with elevated erythrocytosis which has not been present prior. Patientcan also have some elevation of EPO. This is not necessary but some patientswill have this finding. Patient denies overt hematuria. I will repeat herurine analysis to check if there is any blood present.Plan:Repeat CBC UA and erythropoietin level today. Follow-up CT of the abdomen.Ifthe patient has a renal mass present, [facility] partial nephrectomy resection of the mass.Electronically signed by:Dr. Jessica BarryCC: Name Value Range Interpretation Code Description Data April rce(s) Supporting Document(s) ID Date Data Source [id number] 09/28/2020 03:56:00 PM EST [facility] Patient Name: YANI RODRÍGUEZ Date of : [birth year]Unit Number: [id number] Admission Status: [facility] Physician: Therapy Treatment NotePatient Name: YANI RODRÍGUEZ LDate of : 1955Date of Service: 09/28/2020 03:46 PMMedical Record #: [id number] #: [id number] Therapist: DINO Oshearovider: Outpatient Therapy ClinicProvider #:SOC Date: 09/01/2020-- Primary Diagnosis --Description: Aftercare following joint replacement surgeryCode: Z47.1Onset Date: 08/28/2020-- Other Diagnosis --Description: Presence of left artificial knee jointCode: Z96.652Onset Date: 08/31/2020Subjective Comments: Patient c/o pain above the knee cap and posterior to theknee. Patient had Left TKR on 08/25/20. Patient denies pain but hastightness. She said she was doing well until yesterday when her grandchildrendecided to come over and bake with her. She was on her feet a lot. She saidher knee was swollen up until this AM. She had used ice this morning already,which helped bring the swelling downTime In: 10:00Time Out: 11:00-- PT Interventions and CPT Codes Consisted of --EXERCISECPT Code: 89224 Modifiers: Minutes: 25 Units: 1GAIT TRAININGCPT Code: 62279 Modifiers: Minutes: 10 Units: 1Total Minutes: 35 Total Timed Minutes: 35 Total Untimed Minutes: 0Total Units: 2 Total Timed Units: 2 Total Untimed Units: 0Intervention Comments: Patient walked in carrying her cane and not using it asan AD. She walked steadily. She performed supine, seated and standingexercises in the parallel bars. Because she was walking steadily without AD,emphasis during gait training is being able to walk with knee flexion as sheis transitioning from stance phase to swing phase. She used the scifit andnustepPain In: 0/10Pain Out: 0/10-- Progressive Exercises --mat exercisesQuantity: 1.5# Unit: Sets: Reps: 15LAQQuantity: 1.5# Unit: Sets: Reps: 15standing,// bar exercises: marching, hip abd, hip flex, hams curlsQuantity: 1.5# Unit: Sets: Reps: 15sit to standQuantity: Unit: Sets: Reps: 15scifitQuantity: Unit: Sets: Reps: 10 minutesnustepQuantity: Unit: seat 8 Sets: L2 Reps: 15 minstep up/downQuantity: 1 riser/no riser Unit: Sets: Reps: 15hams curlsQuantity: 1.5# Unit: Sets: Reps: 15passive stretching to improve knee flexion: supine, proneQuantity: Unit: 20 sec hold Sets: Reps: 5-- Specific Joints ---- Knee Flexion Current --Strength Right/Left: 5/4- Active ROM Right/Left: /93deg Passive ROMRight/Left: /97deg-- Knee Flexion Goal --Strength Right/Left: /4 Active ROM Right/Left: /100deg Passive ROMRight/Left: /-- Knee Extension Current --Strength Right/Left: 5/4- Active ROM Right/Left: /0deg Passive ROMRight/Left: /0deg-- Knee Extension Goal --Strength Right/Left: /4 Active ROM Right/Left: /0deg Passive ROMRight/Left: /Discharge Planning was Discussed with Patient/Caregiver? NoSigned: Dayana Kramer, PTState License #: [place] [id number]/Time Signed: 09/28/2020 3:54:09 PM Name Value Range Interpretation Code Description Data April rce(s) Supporting Document(s) ID Date Data Source [id number] 09/25/2020 12:18:00 PM EST [facility] Exam Number: [id number] OF EXAMINATIO N: 09/25/2020 11:21 ESTCT ABD&PEL WITH IV CONT ONLYHISTORY: Right adrenal mass. Correlation is made to prior ultrasounddated 09/16/2020TECHNIQUE:This CT exam was performed using the following dose reductiontechniques: automated exposure control, adjustment of mA and/or kVaccording to the patient's size, and use of iterative reconstructiontechnique.Standard contiguous axial spiral imaging was obtained from the dome ofthe diaphragms through the symphysis pubis without oral contrast andwithout intravenous contrast administration and with coronalreformatting.FI NDINGS:Lower thorax: UnremarkableABDOMEN:Liver: Moderate fatty infiltration. Small cyst lateral segment of lefthepatic lobe.Gallbladder and bile ducts: CholecystectomyPancreas: UnremarkableSpleen: UnremarkableAdrenals: UnremarkableKidneys and ureters: 2 cm solid mass mid pole of right kidney isrepresentative of renal cell carcinoma until proven otherwise. 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 09/25/202012:05 EST Reported By: Taylor MONTEIROD. Signed By: Mary PAT M.D. Name Value Range Interpretation Code Description Data April rce(s) Supporting Document(s) ID Date Data Source [id number] 09/25/2020 12:43:00 PM [facility] Patient Name: YANI RODRÍGUEZ Date of : [birth year]Unit Number: [id number] Admission Status: REG RCROrdering Physician: Therapy Treatment NotePatient Name: YANI RODRÍGUEZ LDate of : 1955Date of Service: 09/25/2020 12:16 PMMedical Record #: [id number] #: [id number] Therapist: Manuel Osheader: Outpatient Therapy ClinicProvider #:SOC Date: 09/01/2020-- Primary Diagnosis --Description: Aftercare following joint replacement surgeryCode: Z47.1Onset Date: 08/28/2020-- Other Diagnosis --Description: Presence of left artificial knee jointCode: Z96.652Onset Date: 08/31/2020Subjective Comments: Patient c/o pain above the knee cap and posterior to theknee. Patient had Left TKR on 08/25/20. Patient denies pain when she came inbut has tightness. She said she is sleeping better as her sciatica is notbothering her.Time In: 08:45Time Out: 10:00-- PT Interventions and CPT Codes Consisted of --EXERCISECPT Code: 48186 Modifiers: Minutes: 30 Units: 2GAIT TRAININGCPT Code: 31685 Modifiers: Minutes: 15 Units: 1Total Minutes: 45 Total Timed Minutes: 45 Total Untimed Minutes: 0Total Units: 3 Total Timed Units: 3 Total Untimed Units: 0Intervention Comments: Patient walked in with her cane. She performed supine,seated and standing exercises in the parallel bars.She was able to flex herknee to 93 degrees today. Patient walked without AD around the departmentand she was steady. Therapist had her go back in the parallel bars toemphasize on knee flexion and she did fine. She used the scifit and was notable to go through the cycle after 5 minutes of going back and forth. Randa used the nustep. Patient left before therapist got to ask her pain level.Pain In: 0/10Pain Out: 0/10-- Progressive Exercises --mat exercisesQuantity: 1# Unit: Sets: Reps: 15LAQQuantity: 1# Unit: Sets: Reps: 15standing,// bar exercises: marching, hip abd, hip flex, hams curlsQuantity: 1# Unit: Sets: Reps: 15sit to standQuantity: Unit: Sets: Reps: 15scifitQuantity: Unit: Sets: Reps: 7 minutesnustepQuantity: Unit: seat 8 Sets: L2 Reps: 12 minstep up/downQuantity: 1 riser/no riser Unit: Sets: Reps: 15hams curlsQuantity: 1# Unit: Sets: Reps: 15-- Specific Joints ---- Knee Flexion Current --Strength Right/Left: 5/3+ Active ROM Right/Left: /93deg Passive ROMRight/Left: /95deg-- Knee Flexion Goal --Strength Right/Left: /4 Active ROM Right/Left: /100deg Passive ROMRight/Left: /-- Knee Extension Current --Strength Right/Left: 5/3+ Active ROM Right/Left: /5deg Passive ROMRight/Left: /0deg-- Knee Extension Goal --Strength Right/Left: /4 Active ROM Right/Left: /0deg Passive ROMRight/Left: /Discharge Planning was Discussed with Patient/Caregiver? NoSigned: Dayana Kramer, PTState License #: [place] [id number]/Time Signed: 09/25/2020 12:41:56 PM Name Value Range Interpretation Code Description Data April rce(s) Supporting Document(s) ID Date Data Source [id number] 09/26/2020 01:59:00 PM EST [facility] MIXED CHELSY GROWN NO PATHOGENS ISOLATED Name Value Range Interpretation Code Description Data [facility] rce(s) Supporting Document(s) ID Date Data Source [id number] 09/25/2020 09:07:00 AM EST [facility] Performed at: [facility] [address] [id number] Director: Stephany Givens MD, Phone: [phone] Name Value Range Interpretation Code Description Data April rce(s) Supporting Document(s) ERYTHROPOIETIN 15.4 mIU/mL 2.6-18.5 [facility]nn Stacy Uni[employer]el DxI 800 Immunoass ay SystemValues obtained with different assay methods or kits cannotbe used interchangeably. Results cannot be interpreted asabsolute evidence of the presence or absence of malignantdisease. ID Date Data Source [id number] 09/24/2020 12:13:00 PM EST [facility] Name Value Range Interpretation Code Description Data April rce(s) Supporting Document(s) GLU 83 mg/dL 70-110 [facility] Patients taking Sulfasalazine may have f alsely depressedGlucose levels. Patients taking Sulfapyridine may havefalsely elevated Glucose levels. Patients should be drawnfor Glucose before the initial administration of eitherdrug. BUN 19 mg/dL 7-23 [facility] CRE 0.729 mg/dL 0.500-1.300 [facility] GFR > 60 mL/min [facility] CHLORIDE 110 mmol/L 99-110 [facility] NA 144 mmol/L 136-147 [facility] POTASSIUM 4.6 mmol/L 3.5-5.1 [facility] TCO2 32 mmol/L 20-33 [facility] ANION GAP 6.6 10.0-20.0 L [facility] CA 9.2 mg/dL 8.3-10.7 [facility] ALKALINE PHOS 145 U/L 45-117 H [facility] TP 7.5 g/dL 6.0-7.8 [facility] ALB 4.0 g/dL 3.5-5.0 [facility] ESRD Dialysis patient Albumin reference range: 2.9-4.4 g/dL GL 3.5 g/dL 2.3-3.5 [facility] A/G 1.1 1.0-2.5 [facility] T. BILIRUBIN 0.4 mg/dL 0.1-1.1 [facility] Total Bilirubin is n ot recommended forpatients undergoing treatment with eltrombopag (Promacta)due to the potential for falsely elevated results. ALTI 44 U/L 6-54 [facility] Patients taking Sulfasalazine and/or Sul fapyridine may havefalsely depressed ALT levels. Patients should be drawn forALT before the initial administration of either drug. AST 16 U/L 6-38 [facility] Patients taking Sulfasalazine and/or Sul fapyridine may havefalsely depressed AST levels. Patients should be drawn forAST before the initial administration of either drug. ID Date Data Source [id number] 09/24/2020 11:03:00 AM EST [facility] Name Value Range Interpretation Code Description Data April rce(s) Supporting Document(s) URINE COLOR Yellow [facility] UAPR Clear [facility] UGLU Negative NEGATIVE [facility] URINE BILIRUBIN [facility] NEGAT[facility] USG 1.025 1.010-1.025 [facility] UBLO Trace NEGATIVE [facility] UpH 5.5 5.0-8.0 [facility] UPRO Negative Negative [facility] UUB 0.2 mg/dL 0.2-1.0 [facility] UNIT Negative Negative [facility] ULEU 2+ Negative [facility] ID Date Data Source [id number] 09/24/2020 11:03:00 AM EST [facility] Name Value Range Interpretation Code Description Data April rce(s) Supporting Document(s) URINE RBC 3-5 RBCs/HPF NONE SEEN [facility] URINE WBC 11-20 WBCs/HPF NONE SEEN [facility] l A URINE CULTURE HAS BEEN ADDED TO THIS S PECIMEN URINE BACTERIA Few NONE SEEN [facility] l URINE EPI. Moderate NONE SEEN [facility] ID Date Data Source [id number] 09/24/2020 10:50:00 AM EST [facility] Name Value Range Interpretation Code Description Data April rce(s) Supporting Document(s) WBC 7.14 x10E3/uL 4.0-10.5 [facility] RBC 4.75 x10E6/uL 4.20-5.40 [facility] Hemoglobin 13.4 g/dL 12.0-16.0 [facility] Hematocrit 42.8 % 37.0-47.0 [facility] MCV 90.1 fL 81.0-99.0 N [facility] MCH 28.2 pg 27.0-31.0 [facility] MCHC 31.3 g/dL 32.7-35.6 [facility] RDW 13.4 % 11.5-14.0 [facility] Platelet count 378 x10E3/uL 150-450 N [facility] ital MPV 9.7 fl 6.9-9.5 H [facility] Neutrophils 63.4 % 34-64 N [facility] Lymphocytes 23.9 % 25-45 L [facility] Monocytes 8.5 % 1.7-10.6 N [facility] Eosinophils 2.8 % 0.4-7.0 [facility] Basophils 1.0 % 0.1-2.0 [facility] Imm. Gran. 0.4 % 0.1-2.0 [facility] Abs. Neutro. 4.52 x10E3/uL 1.2-7.6 N [facility] Abs. Lymph. 1.71 x10E3/uL 1.0-3.5 N [facility] Abs. Bowman. 0.61 x10E3/uL 0.1-1.0 N [facility] l Abs. Eosin. 0.20 x10E3/uL 0.1-0.7 N [facility] al Abs. Baso. 0.07 x10E3/uL 0.0-0.1 N [facility] l Abs. Imm. Gran. 0.03 x10E3/uL 0.0-0.1 N [facility] spital ANRBC% 0 % 0 [facility] ID Date Data Source [id number] 09/23/2020 10:37:00 AM EST [facility] Exam Number: [id number] ON EXAMINATI ON: 09/23/2020 9:23 ESTU/S PELVIC(UTERUS & OVARIES)HISTORY: Adnexal cystReal-time ultrasound imaging was performed utilizing B-mode/andrew scaleand color Doppler imaging where applicable.There is a 4.7 cm cyst of right ovary without torsion. Left ovaryappears normal. There is no fluid in the cul-de-sac. Endometrialstripe is not clearly seen on transabdominal study.IMPRESSION:4.7 cm cyst of the right ovary without septation or mural nodularitynor any torsion.Nonvisualization of the endometrial cavity on transabdominal.Electronically signed in PS360 by: Jose Martin Pat M.D. 09/23/202010:25 EST Reported By: Fanny PAT M.D. Signed By: Mary PAT M.D. Name Value Range Interpretation Code Description Data April rce(s) Supporting Document(s) ID Date Data Source [id number] 09/23/2020 10:36:00 AM EST [facility] Exam Number: [id number] ON EXAMINATI ON: 09/23/2020 9:23 ESTU/S TRANSVAGINALHISTORY: Adnexal cystReal-time ultrasound imaging was performed utilizing B-mode/andrew scaleand color Doppler imaging where applicable.Uterus measures 6 x 3 x 5 cm. Endometrial stripe is 3 mm. Small amountof fluid is seen within the endometrial cavity. There is a 4.7 cmcyst of right ovary without torsion. There is no fluid in qhybrq-hw-vciQRDWDIOLLF:4.7 cm cyst of the right ovary without torsion.Electronically signed in PS360 by: Jose Martin Pat M.D. 09/23/202010:24 EST Reported By: Fanny PAT M.D. Signed By: Mary PAT M.D. Name Value Range Interpretation Code Description Data April rce(s) Supporting Document(s) ID Date Data Source US Pelvic Uterus & Ovaries - [id number] 09/23/2020 12:00:00 AM ES T eCW1 ([facility]) Name Value Range Interpretation Code Description Data April rce(s) Supporting Document(s) eCW1 ([facility]) ID Date Data Source [id number] 09/22/2020 01:05:00 PM EST [facility] Patient Name: YANI RODRÍGUEZ Date of : [birth year]Unit Number: [id number] Admission Status: REG RCROrdering Physician: Therapy Treatment NotePatient Name: YANI RODRÍGUEZ LDate of : 1955Date of Service: 09/22/2020 12:53 PMMedical Record #: [id number] #: [id number] Therapist: Manuel Osheader: Outpatient Therapy ClinicProvider #:SOC Date: 09/01/2020-- Primary Diagnosis --Description: Aftercare following joint replacement surgeryCode: Z47.1Onset Date: 08/28/2020-- Other Diagnosis --Description: Presence of left artificial knee jointCode: Z96.652Onset Date: 08/31/2020Subjective Comments: Patient c/o pain above the knee cap and posterior to theknee. Patient had Left TKR on 08/25/20. Patient denies pain when she came inbut has tightness.Time In: 10:15Time Out: 11:15-- PT Interventions and CPT Codes Consisted of --EXERCISECPT Code: 98937 Modifiers: Minutes: 30 Units: 2GAIT TRAININGCPT Code: 49849 Modifiers: Minutes: 15 Units: 1Total Minutes: 45 Total Timed Minutes: 45 Total Untimed Minutes: 0Total Units: 3 Total Timed Units: 3 Total Untimed Units: 0Intervention Comments: Patient walked in with her cane. She had been using herwalker at home. She hurt really bad on Monday that her was ready totake her to the ER. Her "sciatica" was acting up as it is when she came onFriday but got aggravated after therapy. Patient's daughter massaged herbuttock and helped her stretch her piriformis at home. Patient performed mat,seated exercises with ankle weight.She engaged her quads without any problem.She was able to flexion her knee to 90 degrees today.Therapist passivelystretched her piriformis, hamstrings, gastrocs, soleus. Therapist alsostretched her quads using gravity to do it. Standing exercises and gaittraining wereperformed in the parallel bars. She flexed her knee during swing phase and didnot circumduct today. She used the scifit and was not able to go through thecycle. She also used the nustep. Patient left before therapist got to ask herpain level.Pain In: 0/10Pain Out: Not applicable-- Progressive Exercises --mat exercisesQuantity: 1# Unit: Sets: Reps: 15LAQQuantity: 1# Unit: Sets: Reps: 15standing,// bar exercises: marching, hip abd, hip flex, hams curlsQuantity: 1# Unit: Sets: Reps: 15sit to standQuantity: Unit: Sets: Reps: 15scifitQuantity: Unit: Sets: Reps: 5 minutesnustepQuantity: Unit: seat 8 Sets: L2 Reps: 10 minstep up/downQuantity: 1 riser/no riser Unit: Sets: Reps: 15hams curlsQuanti ty: 1# Unit: Sets: Reps: 15walking in the parallel bars without hold/adQuantity: Unit: Sets: Reps: 8 minDischarge Planning was Discussed with Patient/Caregiver? NoSigned: Dayana Kramer, PTState License #: [place] [id number]/Time Signed: 09/22/2020 1:04:11 PM Name Value Range Interpretation Code Description Data April rce(s) Supporting Document(s) ID Date Data Source [id number] 09/18/2020 11:56:00 AM EST [facility] Patient Name: YANI RODRÍGUEZ Date of : [birth year]Unit Number: [id number] Admission Status: REG RCROrdering Physician: Therapy Treatment NotePatient Name: YANI RODRÍGUEZ LDate of : 1955Date of Service: 09/18/2020 10:47 AMMedical Record #: [id number] #: [id number] Therapist: Manuel Osheader: Outpatient Therapy ClinicProvider #:SOC Date: 09/01/2020-- Primary Diagnosis --Description: Aftercare following joint replacement surgeryCode: Z47.1Onset Date: 08/28/2020-- Other Diagnosis --Description: Presence of left artificial knee jointCode: Z96.652Onset Date: 08/31/2020Subjective Comments: Patient c/o pain above the knee cap and posterior to theknee. Patient had Left TKR on 08/25/20. Patient denies pain when she came inbut has tightness.Time In: 08:45Time Out: 09:45-- PT Interventions and CPT Codes Consisted of --EXERCISECPT Code: 69168 Modifiers: Minutes: 30 Units: 2GAIT TRAININGCPT Code: 21133 Modifiers: Minutes: 15 Units: 1Total Minutes: 45 Total Timed Minutes: 45 Total Untimed Minutes: 0Total Units: 3 Total Timed Units: 3 Total Untimed Units: 0Intervention Comments: Patient walked in stiff legged and was actuallycircumducting to clear the floor. Patient performed mat, seated exerciseswith ankle weight. She was stiff and only had 75 degrees of active kneeflexion. Therapist passively stretched her knee and that got her "sciatica"going. She tested positive with piriformis and hamstring tightness.Therapist passively stretched her piriformis and hamstrings. She wa sinstructed on self stretching. Copy of exercises was provided. Therapisteducated her on active release and she agreed for her piriformis to bestripped. Therapist ahd to assist her to roll over on her side . Therapisthad to picker tender helper her leg to get pillowsbetween her legs. In the parallel bars, therapist had her do hams curls andthere were instances when she could hardly picker tender helper her leg. The times thatshe picked it up, she hardly cleared the floor, possibly about 2 inches.Therapist initiated gait training without AD in the bars but it seems toaggravate her sciatica so it was discontinued. She used the scifit and wasnot able to go through the cycle. Therapist had her sit on the ice for 5 minwhile she was on the scifit. She used the nustep for 12 minutes. She waskinesio taped to reduce swelling before she went home.Pain In: 010Pain Out: 12/23-- Progressive Exercises --mat exercisesQuantity: 1# Unit: Sets: Reps: 15LAQQuantity: 1# Unit: Sets: Reps: 15sit to standQuantity: Unit: Sets: Reps: 15scifitQuantity: Unit: Sets: Reps: 8 minutesnustepQuantity: Unit: seat 8 Sets: L2 Reps: 12 minhams curlsQuantity: Unit: Sets: Reps: 10walking in the parallel bars without hold/adQuantity: Unit: Sets: Reps: 60 feetDischarge Planning was Discussed with Patient/Caregiver? NoSigned: Dayana Kramer, PTState License #: [place] [id number]/Time Signed: 09/18/2020 11:53:55 AM Name Value Range Interpretation Code Description Data April rce(s) Supporting Document(s) ID Date Data Source [id number] 09/16/2020 10:45:00 AM EST [facility] Exam Number: [id number] OF EXAMINATIO N: 09/16/2020 9:53 ESTU/S RENALCOMPARED TO:No priorsHISTORY: Right adrenal massReal-time ultrasound imaging was performed utilizing B-mode/andrew scaleand color Doppler imaging where applicable.FINDINGS:The right kidney measures 10 cm and the left kidney measures 11 cmlongitudinally. There is a probable solid mass of the mid pole ofright kidney measuring 2 cm. This should be further evaluated with acontrast-enhanced CT or MRI.IMPRESSION:Probable mass of right kidney should be further evaluated with MRI orCT with contrast demonstration.Electronically signed in PS360 by: Jose Martin Pat M.D. 09/16/202010:33 EST Reported By: Fanny PAT M.D. Signed By: Mary PAT M.D. Name Value Range Interpretation Code Description Data April rce(s) Supporting Document(s) ID Date Data Source [id number] 09/15/2020 10:44:00 AM EST [facility] Patient Name: YANI RODRÍGUEZ Date of : [birth year]Unit Number: [id number] Admission Status: PRE RCROrdering Physician: Therapy Treatment NotePatient Name: YANI RODRÍGUEZ LDate of : 1955Date of Service: 09/15/2020 10:26 AMMedical Record #: [id number] #: [id number] Therapist: Dayana Kramer PTProvider: Outpatient Therapy ClinicProvider #:SOC Date: 09/01/2020-- Primary Diagnosis --Description: Aftercare following joint replacement surgeryCode: Z47.1Onset Date: 08/28/2020-- Other Diagnosis --Description: Presence of left artificial knee jointCode: Z96.652Onset Date: 08/31/2020Subjective Comments: Patient c/o pain above the knee cap and posterior to theknee. Patient had Left TKR on 08/25/20. Patient said she ddin't get muchsleep last night. It was the worst night since she had the surgery. She hadshin splints and sciatica on the surgical sideTime In: 09:25Time Out: 10:30-- PT Interventions and CPT Codes Consisted of --EXERCISECPT Code: 09294 Modifiers: Minutes: 30 Units: 2GAIT TRAININGCPT Code: 61481 Modifiers: Minutes: 15 Units: 1Total Minutes: 45 Total Timed Minutes: 45 Total Untimed Minutes: 0Total Units: 3 Total Timed Units: 3 Total Untimed Units: 0Intervention Comments: Patient performed mat, seated and standing exerciseswith ankle weight. She still avoids going up and down the stairs, most of thetime, with her 's supervision because he does not want her going byherself. Therapist took her to the stair well and practiced walking up anddown , one step at a time using bilateral railing. She did not have anyproblem with that. Therapist had her go up and down with alternate steps withbilateral railing but she still does not have enough flexion to go downnormally with the good leg. She walked all over the department using thestraightcane with decreased knee flexion. She used the scifit and after footadjustments, she was able to go through the cycle forward and back. She usedthe nustep with resistance. She will ice at home.Pain In: 0/10Pain Out: 12/23-- Progressive Exercises --mat exercisesQuantity: 0.75 Unit: Sets: Reps: 15LAQQuantity: 0.75 Unit: Sets: Reps: 15weight shifting: forward, side, backQuantity: pillow Unit: Sets: Reps: 15standing,// bar exercises: marching, hip abd, hip flex, hams curlsQuantity: 0.75 Unit: Sets: Reps: 15sit to standQuantity: Unit: Sets: Reps: 15scifitQuantity: Unit: Sets: Reps: 5 minutesnustepQuantity: Unit: seat 8 Sets: L2 Reps: 12 minstep up/downQuantity: Unit: Sets: Reps: 15stairs: one step at a time, with alternate stepsQuantity: Unit: Sets: Reps: 1 flightDischarge Planning was Discussed with Patient/Caregiver? NoSigned: Dayana Kramer, PTState License #: [place] [id number]/Time Signed: 09/15/2020 10:42:30 AM Name Value Range Interpretation Code Description Data April rce(s) Supporting Document(s) ID Date Data Source [id number] 09/11/2020 10:20:00 AM EST [facility] Patient Name: YANI RODRÍGUEZ Date of : [birth year]Unit Number: [id number] [facility] Physician: Therapy Treatment NotePatient Name: YANI RODRÍGUEZ LDate of : 1955Date of Service: 09/11/2020 10:01 AMMedical Record #: [id number] #: [id number] Therapist: DINO Oshearovider: Outpatient Therapy ClinicProvider #:SOC Date: 09/01/2020-- Primary Diagnosis --Description: Aftercare following joint replacement surgeryCode: Z47.1Onset Date: 08/28/2020-- Other Diagnosis --Description: Presence of left artificial knee jointCode: Z96.652Onset Date: 08/31/2020Subjective Comments: Patient c/o pain above the knee cap and posterior to theknee. Patient had Left TKR on 08/25/20.Patient peeled a 15 # bag of potatoesyday all at once so she is stiff and swollen todayTime In: 09:00Time Out: 09:50-- PT Interventions and CPT Codes Consisted of --EXERCISECPT Code: 85405 Modifiers: Minutes: 20 Units: 1GAIT TRAININGCPT Code: 63980 Modifiers: Minutes: 15 Units: 1Total Minutes: 35 Total Timed Minutes: 35 Total Untimed Minutes: 0Total Units: 2 Total Timed Units: 2 Total Untimed Units: 0Intervention Comments: Patient performed active exercises with ankle weightsfor the first time and tolerated them well. The most challenging for her issingle knee to chest so therapist took the ankle weights off. Gait trainingwas outside the parallel bars since she already walked in with the cane. Shesaid she had been able to use the cane at home because there is alwayssomething that she can hold on to if she loses her balance. She still has touse the walker outdoors so she walked in the building with the walker andused the cane when she went in to the department. She has full gait patternbut with decreased knee flexion. She is able to go through the whole cycle ofthe bike goingbackward.Pain In: 0/10Pain Out: 0/10-- Progressive Exercises --mat exercisesQuantity: Unit: Sets: Reps: 15LAQQuantity: 0.75 Unit: Sets: Reps: 15weight shifting: forward, side, backQuantity: Unit: Sets: Reps: 15standing,// bar exercises: marching, hip abd, hip flex, hams curlsQuantity: 0.75 Unit: Sets: Reps: 15sit to standQuantity: Unit: Sets: Reps: 15scifitQuantity: Unit: Sets: Reps: 3 minutesnustepQuantity: Unit: seat 9 Sets: L1 Reps: 10 minstep up/oma nQuantity: Unit: Sets: Reps: 15hams curlsQuantity: Unit: Sets: Reps: 15Discharge Planning was Discussed with Patient/Caregiver? NoSigned: Dayana Kramer, PTState License #: [id number]/Time Signed: 09/11/2020 10:19:18 AM Name Value Range Interpretation Code Description Data April rce(s) Supporting Document(s) ID Date Data Source [id number] 09/09/2020 10:34:00 AM EST [facility] Patient Name: YANI RODRÍGUEZ Date of : [birth year]Unit Number: [id number] Admission Status: REG RCROrdering Physician: Therapy Treatment NotePatient Name: YANI RODRÍGUEZ LDate of : 1955Date of Service: 09/09/2020 10:22 AMMedical Record #: [id number] #: [id number] Therapist: Pilar Oshea: Outpatient Therapy ClinicProvider #:SOC Date: 09/01/2020-- Primary Diagnosis --Description: Aftercare following joint replacement surgeryCode: Z47.1Onset Date: 08/28/2020-- Other Diagnosis --Description: Presence of left artificial knee jointCode: Z96.652Onset Date: 08/31/2020Subjective Comments: Patient c/o pain above the knee cap and posterior to theknee. Patient had Left TKR on 08/25/20. Patient saw her surgeon last Mondayand was pleased with her mobility. He said he could tell by the way she isseated that she has good mobility. He took her maira out. She denies painbut has swelling and tightness. She said sitting for long periods don'tsettle well with her knee. She had to travel [address] get toher doctor's appointment and had to travel back the same day. She went to seeanother doctor yesterday and had to wait sitting in the waiting room for morethan an hour.Time In: 08:55Time Out: 10:00-- PT Interventions and CPT Codes Consisted of --EXERCISECPT Code: 72448 Modifiers: Minutes: 20 Units: 1GAIT TRAININGCPT Code: 92498 Modifiers: Minutes: 25 Units: 2Total Minutes: 45 Total Timed Minutes: 45 Total Untimed Minutes: 0Total Units: 3 Total Timed Units: 3 Total Untimed Units: 0Intervention Comments: Patient performed exercises with ankle weights for thefirst time and tolerated them well. The most challenging for her is singleknee to chest so therapist took the ankle weights off. Gait training wasperformed in parallel barssimulating ambulation with gait. Therapist had her walk with a cane outsidethe bars and she did better with the sequence. She walked 300 feet. She hasfull gait pattern but needed more toe off to increase knee flexion prior toswing phase.She is able to go through the who;e cycle of the bike for thefirst time going backward. Patient is progressing very wellPain In: 010Pain Out: 010-- Progressive Exercises --LAQQuantity: 0.75 Unit: Sets: Reps: 15standing,// bar exercises: marching, hip abd, hip flex, hams curlsQuantity: 0.75 Unit: Sets: Reps: 15sit to standQuantity: Unit: Sets: Reps: 15scifitQuantity: Unit: Sets: Reps: 4 minutesnustepQuantity: Unit: seat 9 Sets: L1 Reps: 11 minstep up/downQuantity: Unit: Sets: Reps: 15Discharge Planning was Discussed with Patient/Caregiver? NoSigned: Dayana Kramer, PTState License #: [place] [id number]/Time Signed: 09/09/2020 10:31:47 AM Name Value Range Interpretation Code Description Data April rce(s) Supporting Document(s) ID Date Data Source [id number] 09/04/2020 04:09:00 PM EST [facility] Patient Name: YANI RODRÍGUEZ Date of : [birth year]Unit Number: [id number] Admission Status: REG RCROrdering Physician: Therapy Treatment NotePatient Name: YANI RODRÍGUEZ LDate of : 1955Date of Service: 09/04/2020 04:02 PMMedical Record #: [id number] #: [id number] Therapist: DINO Oshearovider: Outpatient Therapy ClinicProvider #:SOC Date: 09/01/2020-- Primary Diagnosis --Description: Aftercare following joint replacement surgeryCode: Z47.1Onset Date: 08/28/2020-- Other Diagnosis --Description: Presence of left artificial knee jointCode: Z96.652Onset Date: 08/31/2020Subjective Comments: Patient c/o pain above the knee cap and posterior to theknee. Patient had Left TKR on 08/25/20. Pain today in the surgical knee israted at 4/10. She said that her daughter had adjusted her CPM at 75 degreesTime In: 01:50Time Out: 02:40-- PT Interventions and CPT Codes Consisted of --EXERCISECPT Code: 23482 Modifiers: Minutes: 30 Units: 2GAIT TRAININGCPT Code: 40717 Modifiers: Minutes: 10 Units: 1Total Minutes: 40 Total Timed Minutes: 40 Total Untimed Minutes: 0Total Units: 3 Total Timed Units: 3 Total Untimed Units: 0Intervention Comments: Patient received exercises and tolerated them. Sheshowed improvement in Active range of motion of the knee in both directions.She denied pain after treatment. Patient is progressing very wellPain In: 410Pain Out: 0/10-- Progressive Exercises --mat exercisesQuantity: Unit: Sets: Reps: 15LAQQuantity: Unit: Sets: Reps: 15weight shifting: forward, side, backQuantity: Unit: Sets: Reps: 15standing,// bar exercises: marching, hip abd, hip flex, hams curlsQuantity: Unit: Sets: Reps: 15sit to standQuantity: Unit: Se ts: Reps: 10scifitQuantity: Unit: Sets: Reps: 45 strokesnustepQuantity: Unit: seat 9 Sets: L1 Reps: 10 minwalk forward, back , sidestep in the parallel barsQuantity: Unit: Sets: Reps: 60 feetstep up/downQuantity: Unit: Sets: Reps: 10-- Specific Joints ---- Knee Flexion Current --Strength Right/Left: 5/3+ Active ROM Right/Left: /83deg Passive ROMRight/Left: /-- Knee Flexion Goal --Strength Right/Left: /4 Active ROM Right/Left: /100deg Passive ROMRight/Left: /-- Knee Extension Current --Strength Right/Left: 5/3+ Active ROM Right/Left: /15deg Passive R OMRight/Left: /-- Knee Extension Goal --Strength Right/Left: /4 Active ROM Right/Left: /0deg Passive ROMRight/Left: /Discharge Planning was Discussed with Patient/Caregiver? NoSigned: Dayana Kramer, PTState License #: [place] [id number]/Time Signed: 09/04/2020 4:07:53 PM Name Value Range Interpretation Code Description Data April rce(s) Supporting Document(s) ID Date Data Source [id number] 09/01/2020 04:53:00 PM EST [facility] Patient Name: YANI RODRÍGUEZ Date of : [birth year]Unit Number: [id number] Admission Status: REG RCROrdering Physician: Therapy Treatment NotePatient Name: YANI RODRÍGUEZ LDate of : 1955Date of Service: 09/01/2020 04:46 PMMedical Record #: [id number] #: [id number] Therapist: DINO Oshearovider: Outpatient Therapy ClinicProvider #:SOC Date: 09/01/2020-- Primary Diagnosis --Description: Aftercare following joint replacement surgeryCode: Z47.1Onset Date: 08/28/2020-- Other Diagnosis --Description: Presence of left artificial knee jointCode: Z96.652Onset Date: 08/31/2020Has the patient's identity been verified using two acceptable forms ofidentification? YesSubjective Comments: Patient c/o pain above the knee cap and posterior to theknee. Patient had Left TKR on 08/25/20Time In: 10:00Time Out: 11:00-- PT Interventions and CPT Codes Consisted of --PT EVAL: MODERATE COMPLEXITYCPT Code: 38239 Modifiers: Minutes: 35 Units: 1EXERCISECPT Code: 12030 Modifiers: Minutes: 15 Units: 1GAIT TRAININGCPT Code: 34747 Modifiers: Minutes: 10 Units: 1Total Minutes: 60 Total Timed Minutes: 25 Total Untimed Minutes: 35Total Units: 3 Total Timed Units: 2 Total Untimed Units: 1Intervention Comments: Patient presents with pain , weakness and limitedmobility s/p left TKR. She will benefit from skilled physical therapy toreduce pain and improve function. Patient received exercises and toleratedthem. Patient left before therapistgot to ask her pain levelPain In: 12/23Pain Out: Not applicable-- Progressive Exercises --mat exercisesQuantity: Unit: Sets: Reps: 10LAQQuantity: Unit: Sets: Reps: 10weight shifting: forward, side, backQuantity: Unit: Sets: Reps: 10standing,// bar exercises: marching, hip abd, hip flexQuantity: Unit: Sets: Reps: 10sit to standQuantity: Unit: Sets: Reps: 10scifitQuantity: Unit: Sets: Reps: 30 0strokesnustepQuantity: Unit: seat 9 Sets: L1 Reps: 10 minProgressive Exercise Comments: Patient only went back and forth with the scifitDischarge Planning was Discussed with Patient/Caregiver? NoAdditional Comm ents: NASigned: Dayana Kramer, PTState License #: [place] [id number]/Time Signed: 09/01/2020 4:51:17 PM Name Value Range Interpretation Code Description Data April rce(s) Supporting Document(s) ID Date Data Source [id number] 09/01/2020 04:48:00 PM EST [facility] Patient Name: YANI RODRÍGUEZ Date of : [birth year]Unit Number: [id number] Admission Status: REG RCROrdering Physician: Therapy Plan of Care (Initial Evaluation)Patient Name: YANI RODRÍGUEZ LDate of : 1955Date of Service: 09/01/2020 10:12 AMMedical Record #: [id number] #: [id number] Therapist: Manuel Osheader: Outpatient Therapy ClinicProvider #:SOC Date: 09/01/2020Visits From SOC: 1Medicaid #: [id number] #:-- Primary Diagnosis --Description: Aftercare following joint replacement surgeryCode: Z47.1Onset Date: 08/28/2020-- Other Diagnosis --Description: Presence of left artificial knee jointCode: Z96.652Onset Date: 08/31/2020Subjective Comments: Patient c/o pain above the knee cap and posterior to theknee. Patient had Left TKR on 08/25/20Prior Functional Status: Severe pain or limitation in ambulation, work, IADL'sor recreationRehabilitative Prognosis: Good rehab potential to reach the established goalsSystems Review, History: Patient c/o pain above the knee cap and posterior tothe knee. Patient had Left TKR on 08/25/20. She went home on the 08/26/20.She did not receive home health physical therapy but had CPM and did her ownexercises at home. Patient's pain is intermittent, rated 0-4/10. Pain isworse with over activity. Pain is better with rest, medication, ice.Patientdenies numbness-- Pain --Initial Level: Joint Pain - Knee - Left; At Rest 0/10; With Activity 4/10Goals for Pain: Decrease pain to 2/10 at the most-- Impairment Goals; Short Term --Patient will ambulate with cane in the communityPatient will walk without AD at homePatient will walk between rooms without difficultyPatient will sit for an hour without difficulty-- Functional Goals; Concrete Bucket [place]er --Patient will walk in the community without ADPatient will drive herself to physical therapy when clearedPatient will stand for an hour with mild difficultyPatient will walk a flight of stairs with mild difficultyPatient will put shoes and socks on without difficultyPatient / Caregiver concurs with established treatment plan and goals: YesLower Extremity Functional Scale Score: Today do you have difficulty at all with:1. Any of your usual work, housework, or school activities(1) Quite a Bit of Difficulty2. Your usual hobbies, recreational or sporting activities(0) Extreme Difficulty or Unable to Perform Activity3. Getting into or out of the bath.(0) Extreme Difficulty or Unable to Perform Activity4. Walking between rooms(3) A Little Bit of Difficulty5. Putting on your shoes or socks(2) Moderate Difficulty6. Squatting(0) Extreme Difficulty or Unable to Perform Activity7. Lifting an object, like a bag of groceries from the floor8. Performing light activities around your home.(3) A Little Bit of Difficulty9. Performing heavy activities around your home(1) Quite a Bit of Odusnywbxi97. Getting into or out of your car(3) A Little Bit of Mwcemnfctl70. Walking 2 blocks(2) Moderate Ushbvwktrs20. Walking a mile(1) Quite a Bit of Aevvvwvchn09. Going up or down 10 stairs (about 1 flight or stairs)(3) A Little Bit of Cfcnxlxjsv70. Standing for 1 hour(1) Quite a Bit of Hpvnuamwus42. Sitting for 1 hour(3) A Little Bit of Hykxutsior01. Running on even ground(0) Extreme Difficulty or Unable to Perform Xduupvic85. Making a sharp turns while running fast(0) Extreme Difficulty or Unable to Perform Hrvvrcdp92. Running on uneven ground(0) Extreme Difficulty or Unable to Perform Bwtmlxwc01. Hopping(0) Extreme Difficulty or Unable to Perform Oduxfquo85. Rolling over in bedTotal Score: 23/80(C) 1995 TIFF Guerrero (reprinted with permission)-- Specific Joints ---- Knee Flexion Initial --Strength Right/Left: 5/3+ Active ROM Right/Left: /75deg Passive ROMRight/Left: /-- Knee Flexion Goal --Strength Right/Left: /4 Active ROM Right/Left: /100deg Passive ROMRight/Left: /-- Knee Extension Initial --Strength Right/Left: 5/3+ Active ROM Right/Left: /20deg Passive ROMRight/Left: /-- Knee Extension Goal --Strength Right/Left: /4 Active ROM Right/Left: /0deg Passive ROMRight/Left: /-- Impairment Observations --Ambulatory with 2 wheeled walker with complete gait cycle though needsoccasional reminder to bend knee after toe off. She is able to get her leftleg up on the bed without assistance. She is able to do Straight leg raisewithout assistance-- Interventions/Plan --PT EVAL: MODERATE COMPLEXITY 25120LVT PACK/COLD PACK [id number] [id number] TRAINING 25262Asmkyqxoi of PT: Two times weeklyDuration of PT: 6 weeksIntervention Comments: Patient presents with pain , weakness and limitedmobility s/p left TKR. She will benefit from skilled physical therapy toreduce pain and improve function.Signed: Dayana Kramer, PTState License #: [place] [id number]/Time Signed: 09/01/2020 4:46:04 PMSigned: Date/Time: Physician: BRODERICK LAROSE certify the need for these services furnished under thisplan of treatment while under my care. Name Value Range Interpretation Code Description Data April rce(s) Supporting Document(s) ID Date Data Source [id number] 09/01/2020 04:48:00 PM EST [facility] Patient Name: YANI RODRÍGUEZ Date of : [birth year]Unit Number: [id number] Admission Status: REG RCROrdering Physician: Therapy Initial Evaluation / ExaminationPatient Name: YANI RODRÍGUEZ LDate of : 1955Date of Service: 09/01/2020 10:12 AMMedical Record #: [id number] #: [id number] Therapist: DINO Oshearovider: Outpatient Therapy ClinicProvider #:SOC Date: 09/01/2020-- Patient Information --Address: [address] [place] [address], Zip: [place], [place], [address]Kibjtfdipq: UnknownGender: FemaleContact Person: HANNAH You Physician Name: BRODERICK Chatman Physician Number:# of Authorized Visits: 0Medicaid #: [id number] #:-- Primary Diagnosis --Description: Aftercare following joint replacement surgeryCode: Z47.1Onset Date: 08/28/2020-- Other Diagnosis --Description: Presence of left artificial knee jointCode: Z96.652Onset Date: 08/31/2020Has the patient's identity been verified using two acceptable forms ofidentification? YesSubjective Comments: Patient c/o pain above the knee cap and posterior to theknee. Patient had Left TKR on 08/25/20-- Rehabilitation Information / History --Recent Physical Therapy: None within the last sixty daysRequired Equipment: None;Prior Functional Status: Severe pain or limitation in ambulation, work, IADL'sor recreationWeight Bearing Status: No restrictionsSafety Measures: Adhere to orthopedic precautions/restrictions;Rehabilitative Prognosis: Good rehab potential to reach the established goalsMental Status: Alert and oriented in all spheres - cooperative and motivatedReason for Referral/Concerns that led patient to Physical Therapy: Decreasedfunctional abilityPatient / Caregiver is aware of and understands his/her diagnosis andprognosis: YesSystems Review, History: Patient c/o pain above the knee cap and posterior tothe knee. Patient had Left TKR on 08/25/20. She went home on the 08/26/20.She did not receive home health physical therapy but had CPM and did her ownexercises at home. Patient's pain is intermittent, rated 0-4/10. Pain isworse with over activity. Pain is better with rest, medication, ice.Patientdenies numbnessPatient has a history of behavioral health risks: No-- Fall Risk Assessment --Patient has fallen in the last 12 months: No-- Lifestyle Questionnaire --Type of living arrangement: Multi-levelAre steps/stairs present at home: YesNumber of steps inside: 15 Rail: YesNumber of steps outside: 3 Rail: NoDo you live alone: NoWith whom:Home Environment Comments: Patient lives with her . She works in [employer] and is on her feet a lot. She also has to do somelifting.She is currently sleeping downstairs but bedroom is upstairs. She hasa half bath downstairs. Pain does not wake her up at night. Not able to driveyet. Ambulatory with 2 wheeled walkerBehavior/Cognition: Alert and oriented in all spheres;Allergies (Food/Other): Specific medications;Allergy Comments: possibly cortisone-- Functional Measures ---- Goals ---- Impairment Goals; Short Term --Patient will ambulate with cane in the communityPatient will walk without AD at homePatient will walk between rooms without difficultyPatient will sit for an hour without difficulty-- Functional Goals; Concrete Bucket Hooker --Patient will walk in the community without ADPatient will drive herself to physical therapy when clearedPatient will stand for an hour with mild difficultyPatient will walk a flight of stairs with mild difficultyPatient will put shoes and socks on without difficultyPatient / Caregiver concurs with established treatment plan and goals: Yes-- Physical Findings ---- Pain --Site: Joint Pain - Knee - LeftAt Rest: 0/10; With Activity: 4/10Exacerbating Factors: movement; Walking;Relieving Factors: Ice to the affected area; Rest;Goals for Pain: Decrease pain to 2/10 at the mostPalpation Comments: slight warmth and swelling but incision is clean and dry.Has areas of rednessLower Extremity Functional Scale Score: 23/80Today do you have difficulty at all with:1. Any of your usual work, housework, or school activities(1) Quite a Bit of Difficulty2. Your usual hobbies, recreational or sporting activities(0) Extreme Difficulty or Unable to Perform Activity3. Getting into or out of the bath.(0) Extreme Difficulty or Unable to Perform Activity4. Walking between rooms(3) A Little Bit of Difficulty5. Putting on your shoes or socks(2) Moderate Difficulty6. Squatting(0) Extreme Difficulty or Unable to Perform Activity7. Lifting an object, like a bag of groceries from the floor8. Performing light activities around your home.(3) A Little Bit of Di fficulty9. Performing heavy activities around your home(1) Quite a Bit of Tfrhqysfln93. Getting into or out of your car(3) A Little Bit of Pawfvkrivz96. Walking 2 blocks(2) Moderate Ncqvfkkpeb16. Walking a mile(1) Quite a Bit of Zfhocevyyq94. Going up or down 10 stairs (about 1 flight or stairs)(3) A Little Bit of Gapgqmejru27. Standing for 1 hour(1) Quite a Bit of Hlwemazeqz36. Sitting for 1 hour(3) A Little Bit of Cuylvvcuic20. Running on even ground(0) Extreme Difficulty or Unable to Perform Uhfxxvml65. Making a sharp turns while running fast(0) Extreme Difficulty or Unable to Perform Iczegvnv19. Running on uneven ground(0) Extreme Difficulty or Unable to Perform Gnzhbiti87. Hopping(0) Extreme Difficulty or Unable to Perform Zlratdtp92. Rolling over in bedTotal Score: 23/80(C) 1995 TIFF Guerrero (reprinted with permission)-- Specific Joints ---- Knee Flexion Initial --Strength Right/Left: 5/3+ Active ROM Right/Left: /75deg Passive ROMRight/Left: /-- Knee Flexion Goal --Strength Right/Left: /4 Active ROM Right/Left: /100deg Passive ROMRight/Left: /-- Knee Extension Initial --Strength Right/Left: 5/3+ Active ROM Right/Left: /20deg Passive ROMRight/Left: /-- Knee Extension Goal --Strength Right/Left: /4 Active ROM Right/Left: /0deg Passive ROMRight/Left: /-- Impairment Observations --Ambulatory with 2 wheeled walker with complete gait cycle though needsoccasional reminder to bend knee after toe off. She is able to get her leftleg up on the bed without assistance. She is able to do Straight leg raisewithout assistance-- Interventions/Plan --PT EVAL: MODERATE COMPLEXITY 971 62HOT PACK/COLD PACK [id number] [id number] TRAINING 06657Zvglenjuh of PT: Two times weeklyDuration of PT: 6 weeksIntervention Comments: Patient presents with pain , weakness and limitedmobility s/p left TKR. She will benefit from skilled physical therapy toreduce pain and improve function.Signed: Dayana Kramer, PTState License #: [place] [id number]/Time Signed: 09/01/2020 4:46:04 PM Name Value Range Interpretation Code Description Data April rce(s) Supporting Document(s) ID Date Data Source [id number] 08/20/2020 09:51:00 AM EST [facility] Name Value Range Interpretation Code Description Data April rce(s) Supporting Document(s) SARS coronavirus 2 RNA [facility] This lab was ordered by [facility] and reported by [facility]. ID Date Data Source [id number] 08/14/2020 12:21:00 PM EDT [facility] Exam Number: [id number] Reporte d By: - KLARISSA LY MD Signed By: KLARISSA LY MD Name Value Range Interpretation Code Description Data April rce(s) Supporting Document(s) ID Date Data Source X Ray Chest 2 Views 07/31/2020 09:05:21 AM EDT eCW1 ([facility]) Name Value Range Interpretation Code Description Data April rce(s) Supporting Document(s) X Ray Chest 2 Views eCW1 ([facility]) ID Date Data Source [id number] 07/31/2020 09:03:06 AM EDT eCW1 ([facility]) Name Value Range Interpretation Code Description Data April rce(s) Supporting Document(s) EKG [id number] eCW1 ([facility]) ID Date Data Source [id number] 07/30/2020 08:49:00 AM EDT [facility] Exam Number: [id number], FRONTAL AND LATERALDATE OF EXAMINATION: 07/30/2020 7:02 EDTCHEST, TWO VIEWSINDICATION: HypertensionCOMPARISON: 08/31/2017TECHNIQUE: Frontal and lateral views of the chest were obtained.FINDINGS: The chest wall and mediastinal structures are unremarkable.There is no pleural disease. There are tiny punctate metallicdensities in the right middle lobe. The lungs are otherwise clear.IMPRESSION: No acute pulmonary diseaseElectronically signed in PS360 by: Charla Guevara M.D. 07/30/2020 8:31EDT Reported By: - CHARLA GUEVARA M.D. Signed By: CHARLA GUEVARA M.D. Name Value Range Interpretation Code Description Data April rce(s) Supporting Document(s) ID Date Data Source [id number] 08/01/2020 09:54:00 AM EDT [facility] MIXED CHELSY GROWN NO PATHOGENS ISOLATED Name Value Range Interpretation Code Description Data April rce(s) Supporting Document(s) ID Date Data Source [id number] 07/30/2020 10:24:00 AM EDT [facility] Name Value Range Interpretation Code Description Data April rce(s) Supporting Document(s) VITAMIN D 25 41 ng/mL 30-100 [facility] ID Date Data Source [id number] 07/30/2020 08:51:00 AM EDT [facility] Name Value Range Interpretation Code Description Data April rce(s) Supporting Document(s) URINE COLOR Yellow [facility] UAPR Clear [facility] UGLU Negative NEGATIVE [facility] URINE BILIRUBIN [facility] NEGATIVE [facility] USG 1.020 1.010-1.025 [facility] UBLO Negative NEGATIVE [facility] UpH 5.0 5.0-8.0 [facility] UPRO Negative Negative [facility] UUB 0.2 mg/dL 0.2-1.0 [facility] UNIT Negative Negative [facility] ULEU 2+ Negative [facility] ID Date Data Source [id number] 07/30/2020 08:51:00 AM EDT [facility] Name Value Range Interpretation Code Description Data April rce(s) Supporting Document(s) URINE RBC None Seen NONE SEEN [facility] URINE WBC 6-10 WBCs/HPF NONE SEEN [facility] A URINE CULTURE HAS BEEN ADDED TO THIS S PECIMEN URINE BACTERIA Rare NONE SEEN [facility] l URINE EPI. Rare NONE SEEN [facility] ID Date Data Source [id number] 07/30/2020 08:47:00 AM EDT [facility] Name Value Range Interpretation Code Description Data April rce(s) Supporting Document(s) HbA1C 5.80 % 3.8-5.6 [facility] Suggested Diagnosis HbA1c% Diabet ic >/= 6.5Prediabetes 5.7%-6.4%Normal < 5.7% ID Date Data Source [id number] 07/30/2020 08:30:00 AM EDT [facility] Name Value Range Interpretation Code Description Data April rce(s) Supporting Document(s) CHOL 202 mg/dL 100-200 [facility] TRIG 83 mg/dL 30-190 [facility] HDL 62 mg/dL 35-80 [facility] LDL DIRECT 121 mg/dL 0-100 [facility] VLDL 19 mg/dL 0-100 [facility] ID Date Data Source [id number] 07/30/2020 08:30:00 AM EDT [facility] Name Value Range Interpretation Code Description Data April rce(s) Supporting Document(s) GLU 106 mg/dL 70-110 [facility] Patients taking Sulfasalazine may have f alsely depressedGlucose levels. Patients taking Sulfapyridine may havefalsely elevated Glucose levels. Patients should be drawnfor Glucose before the initial administration of eitherdrug. BUN 17 mg/dL 7-23 [facility] CRE 0.794 mg/dL 0.500-1.300 [facility] GFR > 60 mL/min [facility] CHLORIDE 106 mmol/L 99-110 [facility] NA 143 mmol/L 136-147 [facility] POTASSIUM 4.5 mmol/L 3.5-5.1 [facility] TCO2 30 mmol/L 20-33 [facility] ANION GAP 11.5 10.0-20.0 [facility] CA 9.1 mg/dL 8.3-10.7 [facility] ALKALINE PHOS 105 U/L 45-117 [facility] TP 7.3 g/dL 6.0-7.8 [facility] ALB 3.8 g/dL 3.5-5.0 [facility] ESRD Dialysis patient Albumin reference range: 2.9-4.4 g/dL GL 3.5 g/dL 2.3-3.5 [facility] A/G 1.1 1.0-2.5 [facility] T. BILIRUBIN 0.6 mg/dL 0.1-1.1 [facility] [place] Total Bilirubin is n ot recommended forpatients undergoing treatment with eltrombopag (Promacta)due to the potential for falsely elevated results. ALTI 18 U/L 6-54 [facility] Patients taking Sulfasalazine and/or Sul fapyridine may havefalsely depressed ALT levels. Patients should be drawn forALT before the initial administration of either drug. AST 13 U/L 6-38 [facility] Patients taking Sulfasalazine and/or Sul fapyridine may havefalsely depressed AST levels. Patients should be drawn forAST before the initial administration of either drug. ID Date Data Source [id number] 07/30/2020 07:37:00 AM EDT [facility] Name Value Range Interpretation Code Description Data April rce(s) Supporting Document(s) WBC 9.07 x10E3/uL 4.0-10.5 [facility] RBC 4.84 x10E6/uL 4.20-5.40 [facility] Hemoglobin 13.6 g/dL 12.0-16.0 [facility] Hematocrit 42.7 % 37.0-47.0 [facility] MCV 88.2 fL 81.0-99.0 [facility] MCH 28.1 pg 27.0-31.0 [facility] MCHC 31.9 g/dL 32.7-35.6 [facility] RDW 13.1 % 11.5-14.0 [facility] Platelet count 336 x10E3/uL 150-450 [facility] MPV 10.0 fl 6.9-9.5 [facility] Neutrophils 64.2 % 34-64 [facility] Lymphocytes 25.2 % 25-45 [facility] Monocytes 6.9 % 1.7-10.6 [facility] Eosinophils 2.4 % 0.4-7.0 [facility] Basophils 0.7 % 0.1-2.0 [facility] Imm. Gran. 0.6 % 0.1-2.0 [facility] Abs. Neutro. 5.82 x10E3/uL 1.2-7.6 [facility] Abs. Lymph. 2.29 x10E3/uL 1.0-3.5 [facility] Abs. Bowman. 0.63 x10E3/uL 0.1-1.0 [facility] Abs. Eosin. 0.22 x10E3/uL 0.1-0.7 [facility] Abs. Baso. 0.06 x10E3/uL 0.0-0.1 [facility] Abs. Imm. Gran. 0.05 x10E3/uL 0.0-0.1 [facility] ANRBC% 0 % 0 [facility] ID Date Data Source [id number] 06/26/2020 09:21:00 AM EDT [facility] Exam Number: [id number] OF EXAMINATIO N: 06/26/2020 7:43 EDTMRI LOWER JOINT EXT W/O CONTRAHISTORY: OsteoarthritisMRI LEFT kneeMulti-echo, multiplanar imaging was obtained without administration ofIV contrast.FINDINGS:Radial and lateral collateral ligaments and retinacula as well as thesupra and infrapatellar tendons and anterior and posterior cruciateligaments are intact. Severe chondromalacia as well as severeosteoarthritis of the medial and lateral knee compartments morepronounced in the medial knee compartment is noted with anterolateralspur formation. Chronic tear of the posterior horn of the m edialmeniscus is seen. The lateral meniscus appears intact. Small jointeffusion is noted. 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 06/26/20208:34 EDT Reported By: Fanny PAT M.D. Signed By: Mary PAT M.D. Name Value Range Interpretation Code Description Data April rce(s) Supporting Document(s) ID Date Data Source [id number] 05/27/2020 09:06:00 PM EDT [facility] Performed at: RN - [facility] [place] [id number] Director: Stephany Givens MD, Phone: [phone] Name Value Range Interpretation Code Description Data April rce(s) Supporting Document(s) H.PYLORI AG EIA Negative Negative [facility] ID Date Data Source [id number] 02/27/2020 02:11:00 PM EDT [facility] Exam Number: [id number] OF EXAMINATIO N: 02/26/2020 9:01 EDTORTHO KNEE COMPLETEHISTORY: PainLEFT KNEETECHNIQUE: 3 views were obtained.There are severe degenerative changes in all 3 compartments of theknee with complete loss of the medial joint space subchondralsclerosis and peripheral osteophyte formationIMPRESSION:Severe arthritis left kneeElectronically signed in PS360 by: Charla Vasquez M.D. 02/27/2020 14:04EDT Reported By: - CHARLA VASQUEZ MD Signed By: CHARLA VASQUEZ MD Name Value Range Interpretation Code Description Data April rce(s) Supporting Document(s) ID Date Data Source [id number] 02/21/2020 11:27:00 AM EDT [facility] Name Value Range Interpretation Code Description Data April rce(s) Supporting Document(s) GLU 97 mg/dL 70-110 [facility] Patients taking Sulfasalazine may have f alsely depressedGlucose levels. Patients taking Sulfapyridine may havefalsely elevated Glucose levels. Patients should be drawnfor Glucose before the initial administration of eitherdrug. BUN 19 mg/dL 7-23 [facility] CRE 0.737 mg/dL 0.500-1.300 [facility] GFR > 60 mL/min [facility] CHLORIDE 106 mmol/L 99-110 [facility] NA 143 mmol/L 136-147 [facility] POTASSIUM 4.8 mmol/L 3.5-5.1 [facility] TCO2 31 mmol/L 20-33 [facility] ANION GAP 10.8 10.0-20.0 [facility] CA 8.5 mg/dL 8.3-10.7 [facility] ALKALINE PHOS 97 U/L 45-117 [facility] TP 7.3 g/dL 6.0-7.8 [facility] ALB 3.9 g/dL 3.5-5.0 [facility] ESRD Dialysis patient Albumin reference range: 2.9-4.4 g/dL GL 3.4 g/dL 2.3-3.5 [facility] A/G 1.1 1.0-2.5 [facility] T. BILIRUBIN 0.6 mg/dL 0.1-1.1 [facility] [place] Total Bilirubin is n ot recommended forpatients undergoing treatment with eltrombopag (Promacta)due to the potential for falsely elevated results. ALTI 31 U/L 6-54 [facility] Patients taking Sulfasalazine and/or Sul fapyridine may havefalsely depressed ALT levels. Patients should be drawn forALT before the initial administration of either drug. AST 25 U/L 6-38 [facility] Patients taking Sulfasalazine and/or Sul fapyridine may havefalsely depressed AST levels. Patients should be drawn forAST before the initial administration of either drug. ID Date Data Source [id number] 02/21/2020 10:55:00 AM EDT [facility] Name Value Range Interpretation Code Description Data April rce(s) Supporting Document(s) WBC 8.69 x10E3/uL 4.0-10.5 [facility] RBC 4.79 x10E6/uL 4.20-5.40 [facility] [facility] Hem[facility] 13.5 g/dL 12.0-16.0 [facility] Hematocrit 42.9 % 37.0-47.0 [facility] MCV 89.6 fL 81.0-99.0 [facility] MCH 28.2 pg 27.0-31.0 [facility] MCHC 31.5 g/dL 32.7-35.6 [facility] RDW 13.4 % 11.5-14.0 [facility] Platelet count 356 x10E3/uL 150-450 N [facility] ital MPV 10.1 fl 6.9-9.5 H [facility] Neutrophils 63.4 % 34-64 [facility] Lymphocytes 24.4 % 25-45 [facility] Monocytes 8.4 % 1.7-10.6 [facility] Eosinophils 2.4 % 0.4-7.0 [facility] Basophils 0.7 % 0.1-2.0 [facility] Imm. Gran. 0.7 % 0.1-2.0 [facility] Abs. Neutro. 5.5 x10E3/uL 1.2-7.6 [facility] Abs. Lymph. 2.1 x10E3/uL 1.0-3.5 [facility] Abs. Bowman. 0.7 x10E3/uL 0.1-1.0 [facility] Abs. Eosin. 0.2 x10E3/uL 0.1-0.7 [facility] Abs. Baso. 0.1 x10E3/uL 0.0-0.1 [facility] Abs. Imm. Gran. 0.1 x10E3/uL 0.0-0.1 N [facility] pital ANRBC% 0 % 0 [facility] ID Date Data Source [id number] 01/10/2020 10:44:00 AM EDT [facility] Name Value Range Interpretation Code Description Data April rce(s) Supporting Document(s) VITAMIN D 25 58 ng/mL 30-100 [facility] ID Date Data Source [id number] 01/10/2020 10:03:00 AM EDT [facility] Name Value Range Interpretation Code Description Data April rce(s) Supporting Document(s) HgBA1C 6.10 % 4.2-6.3 [facility] ID Date Data Source [id number] 01/10/2020 09:41:00 AM EDT [facility] Name Value Range Interpretation Code Description Data April rce(s) Supporting Document(s) USTSH 0.843 uIU/mL 0.270-4.200 [facility] Date Data Source [id number] 01/10/2020 09:18:00 AM EDT [facility] Name Value Range Interpretation Code Description Data April rce(s) Supporting Document(s) CHOL 173 mg/dL 100-200 [facility] TRIG 45 mg/dL 30-190 [facility] HDL 58 mg/dL 35-80 [facility] LDL DIRECT 112 mg/dL 0-100 [facility] VLDL 3 mg/dL 0-100 [facility] ID Date Data Source [id number] 01/10/2020 09:18:00 AM EDT [facility]ata Name Value Range Interpretation Code Description Data April rce(s) Supporting Document(s) GLU 108 mg/dL 70-110 [facility] Patients taking Sulfasalazine may have f alsely depressedGlucose levels. Patients taking Sulfapyridine may havefalsely elevated Glucose levels. Patients should be drawnfor Glucose before the initial administration of eitherdrug. BUN 16 mg/dL 7-23 [facility] CRE 0.861 mg/dL 0.500-1.300 [facility] GFR > 60 mL/min [facility] CHLORIDE 107 mmol/L 99-110 [facility] NA 142 mmol/L 136-147 [facility] POTASSIUM 4.1 mmol/L 3.5-5.1 [facility] TCO2 30 mmol/L 20-33 [facility] ANION GAP 9.1 10.0-20.0 [facility] CA 8.7 mg/dL 8.3-10.7 [facility] ALKALINE PHOS 99 U/L 45-117 [facility] TP 7.2 g/dL 6.0-7.8 [facility] ALB 3.9 g/dL 3.5-5.0 [facility] ESRD Dialysis patient Albumin reference range: 2.9-4.4 g/dL GL 3.3 g/dL 2.3-3.5 [facility] A/G 1.2 1.0-2.5 [facility] T. BILIRUBIN 0.6 mg/dL 0.1-1.1 [facility] [place] Total Bilirubin is n ot recommended forpatients undergoing treatment with eltrombopag (Promacta)due to the potential for falsely elevated results. ALTI 30 U/L 6-54 [facility] Patients taking Sulfasalazine and/or Sul fapyridine may havefalsely depressed ALT levels. Patients should be drawn forALT before the initial administration of either drug. AST 21 U/L 6-38 [facility] Patients taking Sulfasalazine and/or Sul fapyridine may havefalsely depressed AST levels. Patients should be drawn forAST before the initial administration of either drug. ID Date Data Source [id number] 01/10/2020 09:14:00 AM EDT [facility] Name Value Range Interpretation Code Description Data April rce(s) Supporting Document(s) URINE COLOR Yellow [facility] UAPR Clear [facility] UGLU Negative NEGATIVE [facility] URINE BILIRUBIN Negative [facility]GATIVE [facility] UK[facility] Negative NEGATIVE [facility] USG 1.023 1.010-1.025 [facility] UBLO Negative NEGATIVE [facility] UpH 5.5 5.0-8.0 [facility] UPRO Negative Negative [facility] UUB 0.2 mg/dL 0.2-1.0 [facility] UNIT Negative Negative [facility] ULEU 1+ Negative [facility] ID Date Data Source [id number] 01/10/2020 09:14:00 AM EDT [facility] Name Value Range Interpretation Code Description Data April rce(s) Supporting Document(s) URINE RBC None Seen NONE SEEN [facility] URINE WBC 0-5 WBCs/HPF NONE SEEN [facility] URINE BACTERIA Rare [facility] UR[facility] EPI. Rare NONE SEEN [facility] ID Date Data Source [id number] 01/10/2020 09:10:00 AM EDT [facility] Name Value Range Interpretation Code Description Data April rce(s) Supporting Document(s) WBC 5.54 x10E3/uL 4.0-10.5 N [facility] RBC 4.71 x10E6/uL 4.20-5.40 [facility] Hemoglobin 13.4 g/dL 12.0-16.0 [facility] Hematocrit 41.5 % 37.0-47.0 [facility] MCV 88.1 fL 81.0-99.0 [facility] MCH 28.5 pg 27.0-31.0 [facility] MCHC 32.3 g/dL 32.7-35.6 [facility] RDW 13.5 % 11.5-14.0 [facility] Platelet count 291 x10E3/uL 150-450 [facility] ital MPV 9.7 fl 6.9-9.5 [facility] Neutrophils 61.0 % 34-64 [facility] Lymphocytes 18.2 % 25-45 [facility] Monocytes 17.0 % 1.7-10.6 [facility] Eosinophils 2.2 % 0.4-7.0 [facility] Basophils 0.7 % 0.1-2.0 [facility] Imm. Gran. 0.9 % 0.1-2.0 [facility] Abs. Neutro. 3.4 x10E3/uL 1.2-7.6 [facility] Abs. Lymph. 1.0 x10E3/uL 1.0-3.5 [facility] Abs. Bowman. 0.9 x10E3/uL 0.1-1.0 N [facility] Abs. Eosin. 0.1 x10E3/uL 0.1-0.7 N [facility] Abs. Baso. 0.0 x10E3/uL 0.0-0.1 N [facility] Abs. Imm. Gran. 0.1 x10E3/uL 0.0-0.1 [facility] pital ANRBC% 0 % 0 [facility] ID Date Data Source [id number] 11/22/2019 11:32:00 AM EST [facility] Exam Number: [id number] OF EXAMINATIO N: 11/21/2019 10:02 ESTDIGITAL MAMMO JUAN ROUTINEHISTORY: ScreeningHistory of breast cancer.Comparison is made to prior study dated 11/12/2018.2-D bilateral digital mammogram in the CC and MLO planes wereperformed with supplemental 3-D tomosynthesis of both breasts.The images were analyzed through the latest version of the [employer] computer aided diagnosis system.The patient states that her last clinical breast examination wasJuly 2019.Craniocaudal and oblique lateral views of the breasts were obtained.Postsurgical architectural distortion of the right breast is notedwith multiple metallic maira far posteriorly. There are no dominantmasses or skin thickening or suspicious microcalcifications.IMPRESSION:No interval change.BIRAD CATEGORY 2 - BENIGN FINDINGS, ROUTINE YEARLY MAMMOGRAPHICFOLLOW-UP RECOMMENDED.Furthermore, in patients with dense glandular tissue, supplementalimaging modalities should be considered.10-15% of cancers are not identified by mammography. This usuallyoccurs when the mass is of the same radiographic density as thesurrounding breast tissue, emphasizing the importance of breast selfexamination (BSE) and physical examination. A normal mammogram shouldnot delay biopsy if a suspicious mass or abnormal findings are presentupon physical examination.Electronically signed in PS360 by: Jose Martin Pat M.D. 11/22/201911:25 EST Reported By: Fanny PAT M.D. Signed By: Mary PAT M.D. Name Value Range Interpretation Code Description Data April rce(s) Supporting Document(s) ID Date Data Source [id number] 09/26/2019 05:39:00 PM EST [facility] Cc: Hannah [employer] SALES FLOOR TEAM MEMBER (AB) A. BI OPSY OF ANTRUM: - MILD CHRONIC ANTRITIS - IMMUNOHISTOCHEMISTRY FOR HELICOBACTER PYLORI WILL FOLLOW IN AN ADDENDUM B. BIOPSY OF FUNDUS/BODY: - MODERATE TO MARKED CHRONIC GASTRITIS - IMMUNOHISTOCHEMISTRY FOR HELICOBACTER PYLORI WILL BE POSTED IN AN ADDENDUM C. BIOPSY OF SC JUNCTION: - GASTRIC MUCOSA OF CARDIAC TYPE WITH MILD CHRONIC CARDITIS, INTRAMUCOSAL EDEMA,REACTIVE EPITHELIAL CHANGES AND FOVEOLAR HYPERPLASIA. - THERE IS NO SQUAMOUS MUCOSA, INTESTINAL METAPLASIA NOR DYSPLASIA. CODE/S: 52669 X3 . A. Received in formalin, labeled with proper patient identification and "antrum biopsy"is the following biopsy specimen:Number of pieces/color/size: 2, choi, 0.3cm x2All processed in one cassette. B. Received in formalin, labeled with proper patient identification and "body biopsy"is the following biopsy specimen :Number of pieces/color/size: 1, choi, 0.5cm (long, thin)All processed in one cassette. C. Received in formalin, labeled with proper patient identification and "SC junctionbiopsy" is the following biopsy specimen:Number of pieces/color/size: 1, choi, 0.2cmAll processed in one cassette. Dict: SWTrans: AB A. BIOPSY OF ANTRUM: Immunohistochemistry performed at [facility] is interpreted by asfollows: -Helicobacter pylori - Negative -Positive and negative controls are adequate B. BIOPSY OF BODY: Immunohistochemistry performed at [facility] is interpreted by asfollows: -Helicobacter pylori - POSITIVE in very low concentration -Positive and negative controls are adequate CODE/S:68332 x2 . ADDENDUM SIGNED: Wen Gaines DO 09/26/19 Name Value Range Interpretation Code Description Data April rce(s) Supporting Document(s) CLINICAL HISTORY [facility] Slides reviewed. Diagnosis supported b y microscopic examination. 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 BI OPSY OF ANTRUM: - MILD CHRONIC ANTRITIS - IMMUNOHISTOCHEMISTRY FOR HELICOBACTER PYLORI WILL FOLLOW IN AN ADDENDUM B. BIOPSY OF FUNDUS/BODY: - MODERATE TO MARKED CHRONIC GASTRITIS - IMMUNOHISTOCHEMISTRY FOR HELICOBACTER PYLORI WILL BE POSTED IN AN ADDENDUM C. BIOPSY OF SC JUNCTION: - GASTRIC MUCOSA OF CARDIAC TYPE WITH MILD CHRONIC CARDITIS, INTRAMUCOSAL EDEMA,REACTIVE EPITHELIAL CHANGES AND FOVEOLAR HYPERPLASIA. - THERE IS NO SQUAMOUS MUCOSA, INTESTINAL METAPLASIA NOR DYSPLASIA. CODE/S: 38797 X3 . A. Received in formalin, labeled with proper patient identification and "antrum biopsy"is the following biopsy specimen:Number of pieces/color/size: 2, choi, 0.3cm x2All processed in one cassette. B. Received in formalin, labeled with proper patient identification and "body biopsy"is the following biopsy specimen :Number of pieces/color/size: 1, choi, 0.5cm (long, thin)All processed in one cassette. C. Received in formalin, labeled with proper patient identification and "SC junctionbiopsy" is the following biopsy specimen:Number of pieces/color/size: 1, choi, 0.2cmAll processed in one cassette. Dict: SWTrans: AB Name Value Range Interpretation Code Description Data April rce(s) Supporting Document(s) CLINICAL HISTORY [facility] Slides reviewed. Diagnosis supported b y microscopic examination. REPORT SIGNED: Wen Gaines DO 09/24/19 ID Date Data Source [id number] 09/24/2019 03:26:[address] [id number] NAME: YANI RODRÍGUEZ TaylorMaryRebecca#: [id number]: HERMAN MEDRANO MD ADM. DATE: 09/23/19PATIENT : 59 LOCATION: [facility] #: [id number] REPORTGIPatient Name: Yani RodríguezProcedure Date: 09/23/2019 10:04 AMMRN: [id number] of : 8Account Number: [id number]: [id number]: FemaleAttending MD: HERMAN MEDRANO [facility]cedure: Upper GI endoscopyIndications: Dyspepsia, Previously treated for Helicobacter pyloriProviders: Adriana PUTNAM MD:Requesting Provider:Medicines: Monitored Anesthesia CareComplications: No immediate complications. Estimated blood loss:Minimal.Procedure: Pre-Anesthesia Assessment:- Prior to the procedure, a History and Physical wasperformed, and patient medications, allergies andsensitivities were reviewed. The patient's tolerance ofprevious anesthesia was reviewed.After obtaining informed consent, the endoscope waspassed under direct vision. Throughout the procedure,the patient's blood pressure, pulse, and oxygensaturations were monitored continuously. The ENDOSCOPEwas introduced through the mouth, and advanced to thesecond part of duodenum. The upper GI endoscopy wasaccomplished without difficulty. The patient toleratedthe procedure well.Findings:Mildly severe esophagitis with bleeding was found. Biopsies were takenwith a cold forceps for histology. Estimated blood loss was minimal.Biopsies were taken with a cold forceps for Helicobacter pylori testing.Wide Area Transepithelial Sampling (WATS-3D [place] Biopsy) was performedfor histology and samples sent for Computer-Assisted 3- Dimensionalanalysis. Estimated blood loss was minimal.Localized moderate inflammation characterized by granularity was foundin the prepyloric region of the stomach. Biopsies were taken with a coldforceps for Helicobacter pylori testing. Estimated blood loss wasminimal.Impression: - Mildly severe reflux esophagitis. Biopsied. WATS-3Dbrush biopsy specimens obtained.- Nodular gastritis. Biopsied.Recommendation: - Repeat upper endoscopy in 2 years for surveillancebased on pathology results.HERMAN MEDRANO MD09/23/2019 10:29:51 AMNumber of Addenda: 0Note Initiated On: 09/23/2019 10:04 AMDICT: 09/23/19 1004TRANS:09/24/19 [id number] HERMAN MEDRANO MDTRANS BY:IATDATE SIGNED:TIME SIGNED:REPORT COPY TO: Name Value Range Interpretation Code Description Data April rce(s) Supporting Document(s) Procedure Social History Code Duration Value Status Description Data Source(s ) Smoking 10/21/2020 12:00:00 AM EST Never Smoker completed Never S moker eCW1 ([facility]) Smoking 10/02/2020 12:00:00 AM EST Never Smoker completed Never S moker eCW1 ([facility]) Smoking 10/02/2020 12:00:00 AM EST Never Smoker completed Never S moker eCW1 ([facility]) Smoking 10/02/2020 12:00:00 AM EST Never Smoker completed Never S moker eCW1 ([facility]) Smoking 10/02/2020 12:00:00 AM EST Never Smoker completed Never S moker eCW1 ([facility]) Smoking 10/01/2020 12:00:00 AM EST Never Smoker completed Never S moker eCW1 ([facility]) Smoking 10/01/2020 12:00:00 AM EST Never Smoker completed Never S moker eCW1 ([facility]) Smoking 10/01/2020 12:00:00 AM EST Never Smoker completed Never S moker eCW1 ([facility]) Smoking 09/16/2020 12:00:00 AM EST Never Smoker completed Never S moker eCW1 ([facility]) Smoking 09/16/2020 12:00:00 AM EST Never Smoker completed Never S moker eCW1 ([facility]) Smoking 09/16/2020 12:00:00 AM EST Never Smoker completed Never S moker eCW1 ([facility]) Smoking 09/16/2020 12:00:00 AM EST Never Smoker completed Never S moker eCW1 ([facility]) Smoking 09/16/2020 12:00:00 AM EST Never Smoker completed Never S moker eCW1 ([facility]) Smoking 09/16/2020 12:00:00 AM EST Never Smoker completed Never S moker eCW1 ([facility]) Smoking 09/16/2020 12:00:00 AM EST Never Smoker completed Never S moker eCW1 ([facility]) Smoking 09/03/2020 12:00:00 AM EST Never Smoker completed Never S moker eCW1 ([facility]) Smoking 09/03/2020 12:00:00 AM EST Never Smoker completed Never S moker eCW1 ([facility]) Smoking 09/03/2020 12:00:00 AM EST Never Smoker completed Never S moker eCW1 ([facility]) Smoking 09/03/2020 12:00:00 AM EST Never Smoker completed Never S moker eCW1 ([facility]) Smoking 07/29/2020 12:00:00 AM EDT Never Smoker completed Never S moker eCW1 ([facility]) Smoking 07/29/2020 12:00:00 AM EDT Never Smoker completed Never S moker eCW1 ([facility]) Smoking 07/29/2020 12:00:00 AM EDT Never Smoker completed Never S moker eCW1 ([facility]) Smoking 07/29/2020 12:00:00 AM EDT Never Smoker completed Never S moker eCW1 ([facility]) Smoking 07/29/2020 12:00:00 AM EDT Never Smoker completed Never S moker eCW1 ([facility]) Smoking 07/02/2020 12:00:00 AM EDT Never Smoker completed Never S moker eCW1 ([facility]) Smoking 05/22/2020 12:00:00 AM EDT Never Smoker completed Never S moker eCW1 ([facility]) Smoking 05/22/2020 12:00:00 AM EDT Never Smoker completed Never S moker eCW1 ([facility]) Smoking 05/22/2020 12:00:00 AM EDT Never Smoker completed Never S moker eCW1 ([facility]) Smoking 05/22/2020 12:00:00 AM EDT Never Smoker completed Never S moker eCW1 ([facility]) Smoking 02/26/2020 12:00:00 AM EDT Never Smoker completed Never S moker eCW1 ([facility]) Smoking 02/26/2020 12:00:00 AM EDT Never Smoker completed Never S moker eCW1 ([facility]) Smoking 02/26/2020 12:00:00 AM EDT Never Smoker completed Never S moker eCW1 ([facility]) Smoking 02/26/2020 12:00:00 AM EDT Never Smoker completed Never S moker eCW1 ([facility]) Vital Signs ID Date Data Source UNK Name Value Range Interpretation Code Description Data Source(s) Diastolic blood pressure 78 mm[Hg] 78 mm[Hg] eCW1 ([facility]) Systolic blood pressure 138 mm[Hg] 138 mm[Hg] e CW1 ([facility]) Oxygen saturation in Arterial blood by Pulse oximetry 98 % 98 % eCW1 ([facility]) Respiratory rate 18 /min 18 /min eCW1 ([facility]) Heart rate 83 /min 83 /min eCW1 ([facility]) Body temperature 97.8 [degF] 97.8 [degF] eCW1 ( [facility]) Body mass index (BMI) [Ratio] 41.45 kg/m2 41.45 kg/m2 eCW1 ([facility]) Body weight 106.14 kg 106.14 kg W1 ([facility]) Body weight 234 [lb_av] 234 [lb_av] eCW1 ([facility]) Body height 63 [in_i] 63 [in_i] eCW1 ([facility]) Diastolic blood pressure 68 mm[Hg] 68 mm[Hg] eCW1 ([facility]) Systolic blood pressure 124 mm[Hg] 124 mm[Hg] e CW1 ([facility]) Body temperature 97.3 [degF] 97.3 [degF] eCW1 ( [facility]) Respiratory rate 18 /min 18 /min eCW1 ([facility]) Heart rate 97 /min 97 /min eCW1 ([facility]) Body mass index (BMI) [Ratio] 39.20 kg/m2 39.20 kg/m2 eCW1 ([facility]) Body height 65 [in_i] 65 [in_i] eCW1 ([facility]) Body weight 235.6 [lb_av] 235.6 [lb_av] eCW1 ([facility]) Diastolic blood pressure 60 mm[Hg] 60 mm[Hg] eCW1 ([facility]) Systolic blood pressure 120 mm[Hg] 120 mm[Hg] e CW1 ([facility]) Oxygen saturation in Arterial blood by Pulse oximetry 99 % 99 % eCW1 ([facility]) Respiratory rate 18 /min 18 /min eCW1 ([facility]) Heart rate 82 /min 82 /min eCW1 ([facility]) Body temperature 97.7 [degF] 97.7 [degF] eCW1 ( [facility]) Body mass index (BMI) [Ratio] 41.80 kg/m2 41.80 kg/m2 eCW1 ([facility]) Body weight 236 [lb_av] 236 [lb_av] eCW1 ([facility]) Body height 63 [in_i] 63 [in_i] eCW1 ([facility]) Diastolic blood pressure 78 mm[Hg] 78 mm[Hg] eCW1 ([facility]) Systolic blood pressure 158 mm[Hg] 158 mm[Hg] e CW1 ([facility]) Oxygen saturation in Arterial blood by Pulse oximetry 95 % 95 % eCW1 ([facility]) Heart rate 94 /min 94 /min eCW1 ([facility]) Body temperature 96 [degF] 96 [degF] eCW1 ([facility]) Body mass index (BMI) [Ratio] 42.33 kg/m2 42.33 kg/m2 eCW1 ([facility]) Body weight 239 [lb_av] 239 [lb_av] eCW1 ([facility]) Body height 63 [in_i] 63 [in_i] eCW1 ([facility]) Diastolic blood pressure 86 mm[Hg] 86 mm[Hg] eCW1 ([facility]) Systolic blood pressure 136 mm[Hg] 136 mm[Hg] e CW1 ([facility]) Oxygen saturation in Arterial blood by Pulse oximetry 98 % 98 % eCW1 ([facility]) Heart rate 78 /min 78 /min eCW1 ([facility]) Body temperature 97.8 [degF] 97.8 [degF] eCW1 ( [facility]) Body mass index (BMI) [Ratio] 42.65 kg/m2 42.65 kg/m2 W1 ([facility]) Body weight 109.23 kg 109.23 kg eCW1 ([facility]) Body weight 240.8 [lb_av] 240.8 [lb_av] eCW1 ([facility]) Body height 63 [in_i] 63 [in_i] eCW1 ([facility]) Diastolic blood pressure 88 mm[Hg] 88 mm[Hg] eCW1 ([facility]) Systolic blood pressure 130 mm[Hg] 130 mm[Hg] e CW1 ([facility]) Oxygen saturation in Arterial blood by Pulse oximetry 98 % 98 % eCW1 ([facility]) Heart rate 77 /min 77 /min eCW1 ([facility]) Body temperature 98.6 [degF] 98.6 [degF] eCW1 ( [facility]) Body mass index (BMI) [Ratio] 42.86 kg/m2 42.86 kg/m2 eCW1 ([facility]) Body weight 242 [lb_av] 242 [lb_av] eCW1 ([facility]) Body height 63 [in_i] 63 [in_i] eCW1 ([facility]) Diastolic blood pressure 84 mm[Hg] 84 mm[Hg] eCW1 ([facility]) Systolic blood pressure 130 mm[Hg] 130 mm[Hg] e CW1 ([facility]) Oxygen saturation in Arterial blood by Pulse oximetry 98 % 98 % W1 ([facility]) Heart rate 94 /min 94 /min eCW1 ([facility]) Body temperature 97.5 [degF] 97.5 [degF] eCW1 ( [facility]) Body mass index (BMI) [Ratio] 42.86 kg/m2 42.86 kg/m2 eCW1 ([facility]) Body weight 242 [lb_av] 242 [lb_av] eCW1 ([facility]) Body height 63 [in_i] 63 [in_i] eCW1 ([facility]) Diastolic blood pressure 76 mm[Hg] 76 mm[Hg] eCW1 ([facility]) Systolic blood pressure 128 mm[Hg] 128 mm[Hg] e CW1 ([facility]) Deprecated Oxygen saturation in Capillary blood by Oximetry 98 % 98 % eCW1 ([facility]) Heart rate 192 /min 192 /min eCW1 ([facility]) Body temperature 98.6 [degF] 98.6 [degF] eCW1 ( [facility]) Body mass index (BMI) [Ratio] 42.86 kg/m2 42.86 kg/m2 W1 ([facility]) Body weight Measured 242 [lb_av] 242 [lb_av] eC W1 ([facility]) Body height 63 [in_us] 63 [in_us] eCW1 ([facility])
[2020-10-27] MEDS ORDERED: REMIFENTANIL 1MG 3ML VIAL As Ordered ONE (07:55)
[2020-10-27] MEDS ORDERED: SUGAMMADEX SODIUM 500 MG/5 ML VIAL (BRIDION) As Ordered ONE (07:55)
[2020-10-27] MEDS ORDERED: propofoL 200 MG/20 ML VIAL As Ordered ONE (07:55)
[2020-10-27] MEDS ORDERED: ROCURONIUM BROMIDE 50 MG/5 ML VIAL As Ordered ONE (07:55)
[2020-10-27] MEDS ORDERED: MIDAZOLAM INJ 2MG/2ML VIAL (J2250 PER 1MG) As Ordered ONE (07:55)
[2020-10-27] MEDS ORDERED: fentaNYL 250 MCG/5 ML INJECTION (J3010) As Ordered ONE (07:55)
[2020-10-27] MEDS ORDERED: dexameTHASONE 4 MG/ML 1ML VIAL (J1100 PER 1MG) As Ordered ONE (07:55)
[2020-10-27] MEDS ORDERED: LIDOCAINE 2% 100MG/5ML SDV (FOR ANES.) As Ordered ONE (07:55)
[2020-10-27] MEDS ORDERED: ONDANSETRON 4MG/2ML VIAL As Ordered ONE (07:55)
[2020-10-27] MEDS ORDERED: METOCLOPRAMIDE INJ 10MG/2ML VIAL (J2765 PER 1) As Ordered ONE (07:55)
[2020-10-27] MEDS ORDERED: LIDOCAINE 1% SDV 30ML VIAL As Ordered ONE (08:17)
[2020-10-27] MEDS ORDERED: BUPIVACAINE HCL 0.25% 30ML VIAL As Ordered ONE (08:17)
[2020-10-27] MEDS ORDERED: NS 1,000 ML IV SCH (08:33)
[2020-10-27] MEDS ORDERED: MORPHINE 2 MG/ML 1ML VIAL (J2270) IV PRN (08:45)
[2020-10-27] MEDS ORDERED: ACETAMINOPHEN TAB 650MG DOSE (2X325MG) PO PRN (08:45)
[2020-10-27] MEDS ORDERED: PERCOCET 5MG/325MG TAB PO PRN (08:45)
[2020-10-27] MEDS ORDERED: ONDANSETRON 4MG/2ML VIAL IV PRN ×2 (08:45→13:45)
[2020-10-27] MEDS ORDERED: ePHEDrine SULFATE 25 MG/5 ML(5MG/ML) SYRINGE As Ordered ONE (09:18)
[2020-10-27] MEDS ORDERED: PHENYLephrine 500MCG 5ML (100MCG/ML) SYRINGE As Ordered ONE (09:18)
[2020-10-27] MEDS ORDERED: MANNITOL 25% 12.5 GM/50 ML VIAL (J2150) As Ordered ONE (10:03)
[2020-10-27] MEDS ORDERED: ACETAMINOPHEN 1000MG 100ML IV BTL (OFIRMEV) (J0131 PER 10MG) As Ordered ONE (12:29)
[2020-10-27] MEDS ORDERED: oxyCODONE 5MG TAB As Ordered ONE (13:24)
[2020-10-27] MEDS ORDERED: fentaNYL 100 MCG/2 ML INJECTION (J3010) As Ordered ONE (13:27)
[2020-10-27] MEDS: oxyCODONE 5MG TAB PO PRN ×2 (13:30→14:03)
[2020-10-27] MEDS: fentaNYL 100 MCG/2 ML INJECTION (J3010) IV PRN ×4 (13:30→13:46)
--- NOTE | 2020-10-27 13:42 | ROOPDOC ---
[facility] Report Of Operation Report of Operation DATE OF PROCEDURE: 10/27/20 PREPROCEDURE DIAGNOSIS: Right renal neoplasm. POSTPROCEDURE DIAGNOSIS: Right renal neoplasm. PROCEDURE: Right robotic-assisted laparoscopic partial nephrectomy with intraoperative ultrasound for tumor mapping, laparoscopic lysis of adhesions. SURGEON: Meng Lawrence MD AUDIO VISUAL ENGINEER: Abbey Morales ANESTHESIA: General OPERATIVE INDICATIONS: This is a 65 year old male with an approximately 2cm enhancing mass on her right kidney. She was brought to the operating room today for treatment. DESCRIPTION OF PROCEDURE: The patient was brought to the operating room where general anesthesia was induced. Prophylactic antibiotics were infused. A Orantes catheter was inserted into the bladder under sterile conditions and the balloon was filled with sterile water. She was then placed in the left lateral decubitus position. All pressure points were appropriately padded and an axillary roll was placed. We then secured the patient to the table with tape. Her abdomen was then prepped and draped in the usual sterile fashion. Next, an 8mm incision was made in line with the 11th rib along the lateral border of the rectus. Pneumoperitoneum was achieved with a Veress needle. Next, an 8mm port was placed for the camera. At this point, the right robotic port was placed off the costal margin. A 5mm safety assistant port was placed just inferior to the xiphoid process for placement of a liver retractor. Two left hand robotic ports were then placed with one between the anterior superior iliac spine and the hip and the other one just caudal to the camera port. Last the 12 mm safety assistant port was placed inferior and medial to the camera port. There was a large amount of adhesions between and omentum and the abdominal wall in the patient's upper abdomen. I spent 30 minutes taking these adhesions down with laparoscopic scissors. Once done, the robot was docked. The liver was then dissected off of Gerota's fascia. Then a laparoscopic Allis grasper was utilized to retract the liver off of Gerota's fascia. Next the right colon was dissected off of Gerota's fascia. The duodenum was Kocherized. At this point the inferior vena cava (IVC) vein was identified and it was traced cephalad and dissected laterally until the right renal vein was encountered. I then dissected posterior to the right renal vein and the right renal artery was found. It was carefully dissected. Next I had our chef under administer 12.5g of mannitol. Gerota's fascia was then opened and I defatted the kidney. On the anterior and lateral aspect of the kidney the tumor was seen. Ultrasound was then utilized to tian the boundaries of the mass. Next 2 bulldog clamps were placed on the renal artery and we began resecting the mass. The mass was resected completely. Once the mass was removed, the renorrhaphy was performed first by ligating all vessels in the base of resection with a #2-0 vicryl suture using figure of eight stitches. The capsule of the kidney was then reapprox imated using #0-vicryl suture with Weck clips to cinch down the suture. Once this was done the clamps were removed and hemostasis was excellent. The warm ischemia time was 34 minutes. Next Gabbi was applied to the resection bed and the tumor was placed in an endocatch bag. A Sid Foster drain was positioned just lateral to the kidney. The robot was undocked after confirming hemostasis within the abdomen. The specimen was then extracted from the 12mm port site. A Vamshi-Jennifer fascial closure device was then used to place #0-vicryl free ties through the fascia of the 12mm port site. These ties were then tied down. The abdomen was observed again and there was no bleeding from the left kidney or the hilum. We then removed all the ports under direct vision and there was no bleeding from any of the port sites. At this point, all the incisions were thoroughly irrigated. We then closed the skin of each site using a running #4-0 subcuticular Monocryl stitch. The Sid Foster drain was secured to the skin using #3-0 Ethilon suture. Local anesthetic was then applied to each incision and Dermabond was then applied and this marked the conclusion of the procedure. The patient was then taken out of the left lateral decubitus position, awakened from anesthesia and transported to the recovery room in stable condition. ESTIMATED BLOOD LOSS: 150 mL INTRAOPERATIVE COMPLICATIONS: None SPECIMENS: Right renal neoplasm WARM ISCHEMIA TIME: 34 minutes NORMAL RIGHT RENAL PARENCHYMA SPARED: 95% PLAN: The patient will be admitted to the hospital postoperatively and he will be discharged home once her renal function is stable and she is tolerating a regular diet. MENG LAWRENCE MD Oct 27, 2020 08:58
[2020-10-27] MEDS ORDERED: LR 1,000 ML IV SCH (13:45)
[2020-10-27 13:59] LABS: HEMATOCRIT 41.2 % (36.0-47.0); HEMOGLOBIN 12.9 g/dl (12.0-15.5); MEAN CORPUSCULAR HEMOGLOBIN 28.4 pg (27.0-33.0); MEAN CORPUSCULAR HGB CONC 31.3 g/dl (32.0-36.5); MEAN CORPUSCULAR VOLUME 90.5 fl (80.0-96.0); PLATELET COUNT, AUTOMATED 264 10^3/uL (150-450); RED BLOOD COUNT 4.55 10^6/uL (4.00-5.40); WHITE BLOOD COUNT 9.4 10^3/uL (4.0-10.0)
[2020-10-27 14:38] LABS: BLOOD UREA NITROGEN 13 MG/DL (7-18); CALCIUM LEVEL 8.5 MG/DL (8.8-10.2); CARBON DIOXIDE LEVEL 29 MEQ/L (21-32); CHLORIDE LEVEL 106 MEQ/L (98-107); CREATININE FOR GFR 0.88 MG/DL (0.55-1.30); GLOMERULAR FILTRATION RATE > 60.0 (>45); GLUCOSE, FASTING 164 MG/DL (70-100); POTASSIUM SERUM 3.5 MEQ/L (3.5-5.1); SODIUM LEVEL 139 MEQ/L (136-145)
--- OUTSIDE RECORDS SUMMARY | 2020-10-27 15:37 | CCD ---
Author Author [facility] Organization [facility] Address Unknown Phone Unavailable Care Team Providers Care Casino Cashier Manager Name Role Phone JOSE MARTIN PAT MD [...] Bakhti Unavailable Sinor, Bakhti Unavailable JONNIE, ARPIT EMAIL MARKETING COORDINATOR Unavailable Unavailable JONNIE, ARPIT EMAIL MARKETING COORDINATOR Unavailable Unavailable JONNIE, ARPIT EMAIL MARKETING COORDINATOR Unavailable Unavailable JONNIE, ARPIT EMAIL MARKETING COORDINATOR Unavailable Unavailable JONNIE, ARPIT EMAIL MARKETING COORDINATOR Unavailable Unavailable JONNIE, ARPIT EMAIL MARKETING COORDINATOR Unavailable Unavailable JONNIE, ARPIT EMAIL MARKETING COORDINATOR Unavailable Unavailable JONNIE, ARPIT EMAIL MARKETING COORDINATOR Unavailable Unavailable JONNIE, ARPIT EMAIL MARKETING COORDINATOR Unavailable Unavailable JONNIE, ARPIT EMAIL MARKETING COORDINATOR Unavailable Unavailable JONNIE, ARPIT EMAIL MARKETING COORDINATOR Unavailable Unavailable JONNIE, ARPIT EMAIL MARKETING COORDINATOR Unavailable Unavailable JONNIE, ARPIT EMAIL MARKETING COORDINATOR Unavailable Unavailable JONNIE, ARPIT EMAIL MARKETING COORDINATOR Unavailable Unavailable JONNIE, ARPIT EMAIL MARKETING COORDINATOR Unavailable Unavailable JONNIE, ARPIT EMAIL MARKETING COORDINATOR Unavailable Unavailable JONNIE, ARPIT EMAIL MARKETING COORDINATOR Unavailable Unavailable JONNIE, ARPIT EMAIL MARKETING COORDINATOR Unavailable Unavailable JONNIE, ARPIT EMAIL MARKETING COORDINATOR Unavailable Unavailable JONNIE, ARPIT EMAIL MARKETING COORDINATOR Unavailable Unavailable JONNIE, ARPIT EMAIL MARKETING COORDINATOR Unavailable Unavailable JONNIE, ARPIT EMAIL MARKETING COORDINATOR Unavailable Unavailable JONNIE, ARPIT EMAIL MARKETING COORDINATOR Unavailable Unavailable JONNIE, ARPIT EMAIL MARKETING COORDINATOR Unavailable Unavailable JONNIE, ARPIT EMAIL MARKETING COORDINATOR Unavailable Unavailable JONNIE, ARPIT EMAIL MARKETING COORDINATOR Unavailable Unavailable JONNIE, ARPIT EMAIL MARKETING COORDINATOR Unavailable Unavailable JONNIE, ARPIT EMAIL MARKETING COORDINATOR Unavailable Unavailable JONNIE, ARPIT EMAIL MARKETING COORDINATOR Unavailable Unavailable JONNIE, ARPIT EMAIL MARKETING COORDINATOR Unavailable Unavailable JONNIE, ARPIT EMAIL MARKETING COORDINATOR Unavailable Unavailable JONNIE, ARPIT EMAIL MARKETING COORDINATOR Unavailable Unavailable JONNIE, ARPIT EMAIL MARKETING COORDINATOR Unavailable Unavailable JONNIE, ARPIT EMAIL MARKETING COORDINATOR Unavailable Unavailable Neris LOVE MD Unavailable Unavailable [...] PRYJMA HERMAN MD Unavailable Unavailable MARCELA, PRYJMA HERAMN MD Unavailable Unavailable MARCELA, PRYJMA HERMAN MD Unavailable Unavailable MARCELA, PRYJMA HERMAN MD Unavailable Unavailable MARCELA, PRYJMA HERMAN MD Unavailable Unavailable MARCELA, PRYJMA HERMAN MD Unavailable Unavailable BERNADETTE LOVE MD Unavailable Unavailable BERNADETTE LOVE MD Unavailable Unavailable BERNADETTE LOVE MD Unavailable Unavailable BERNADETTE LOVE MD Unavailable Unavailable BERNADETTE LOEV MD Unavailable Unavailable BERNADETTE LOVE MD Unavailable [...] Marielle PA Unavailable Unavailabl e Salgado, Condict Mairelle PA Unavailable Unavailabl e Salgado, Condict Marielle [...] Unavailable UnavailNADER Ramirez MD Unavailable Unavailable ABHYANKNADER LEHAMN MD Unavailable Unavailable ABHYANKNADER LEHMAN MD Unavailable Unavailable ABHYANKNADER LEHMAN MD Unavailable Unavailable GREGANKNADER LEHMAN MD Unavailable Unavailable GREGANKNADER LEHMAN MD Unavailable Unavailable ABSTEVENANKNADER LEHMAN MD Unavailable Unavailable ABSTEVENANKNADER LEHMAN MD Unavailable Unavailable Neris MCKEON MD Unavailable Unavailable BUNKER, R SANDOR PA Unavailable Unavailable BUNKER, R SANDRO PA Unavailable Unavailable BUNKER, R SANDOR PA [...] R SANDOR PA Unavailable Unavailable BUNKER, R SANODR PA Unavailable Unavailable BUNKER, R SANDOR PA [...] Unavailable Reagan LAWRENCE MD Unavailable Unavailable Reagan LAWERNCE MD Unavailable Unavailable Reagan LAWRENCE MD Unavailable [...] is protected by Article 27-F of the [facility] Public Health law. If you continue you may have access to information: Regarding HIV / AIDS; Provided by facilities licensed or operated by the [facility] Office of Mental Health; or Provided by the [facility] Office for People With Developmental Disabilities. If such information is present, then the following [facility] mandated warning applies: This information has [...] law may result in a fine or chcf sentence or both. A general authorization for the release of medical or other information is NOT sufficient authorization for further disc losure. Encounters Encounter Providers Location Date Indications Data Source(s ) Outpatient Attender: Danilo Aceves DO CPSCAORT-COVVACCPH 07/2021 09:26:00 AM [facility] 2ND COVID VACCINE [facility] 2ND COVID VACCINE Outpatient Attender: MENG LAWRENCE MD -[facility] 10/22/2020 11:50:00 AM [facility] Outpatient Attender: Marielle ALVAREZ 10/21/2020 01:19 :00 PM [facility] Outpatient [address] [facility] [address] [place] [address] 10/21/2020 12:00:00 AM EST eCW1 ([facility]) Outpatient Attender: MENG LAWRENCE MD ER-LAB 10/20/2020 09:07:00 AM EST [facility] Recurring Patient Attender: BRODERICK LOVE MDAttender: BRODERICK KNIGHT MD ER-OPT 10/16/2020 10:41:00 AM EST [facility] [place] [address] [facility] [address] 10/13/2020 12:00:00 AM EST [facility]CW1 ([facility]) [place] [address] [facility] [place] [address] 10/13/2020 12:00:00 AM EST eCW1 ([facility]) Outpatient [address] [facility] [address] [place] [address] 10/12/2020 12:00:00 AM EST eCW1 ([facility]) Outpatient 3 [facility] [address] [place] [address] 10/12/2020 12:00:00 AM EST eCW1 ([facility]) [place] [address] [facility] [address] 10/06/2020 12:00:00 AM EST eCW1 ([facility]) Outpatient Attender: Danilo Aceves DO CPSCAORT-COVVACCPH 02:00:00 PM EST 1ST VACCINE [facility] 1ST VACCINE [place] [address] [facility] [address] 10/02/2020 12:00:00 AM EST eCW1 ([facility]) Outpatient Attender: BRODERICK LOEV MDAttender: BRODERICK Snyder MD ER-MOB 10/01/2020 12:36:00 AM EST [facility] Outpatient 3 [facility] [address] [place] [address] 10/01/2020 12:00:00 AM EST eCW1 ([facility]) Outpatient Attender: Marielle ALVAREZ ER-RAD 09/25/2020 02:26 :00 AM EST [facility] Outpatient Attender: JOSE MARTIN PAT MD 09/24/2020 09:52:0 0 AM EST [facility] Admission cancelled. Disregard status an d admitted date. Outpatient Attender: Jessica Barry MD ER-CTCMEDONC 09/24/2020 08:55:00 AM EST [facility] Outpatient 3 [facility] [address] [place] [address] 09/24/2020 12:00:00 AM EST eCW1 ([facility]) Outpatient Attender: Marielle Salgado PAReferrer: Jessica Barry MDConsultant: Jessica Barry MD ER-WHS 09/23/2020 09:22:00 AM EST [facility] Outpatient [address] [facility] [address] [place] [address] 09/23/2020 12:00:00 AM EST eCW1 ([facility]) Outpatient 3 [facility] [address] [place] [address] 09/22/2020 12:00:00 AM EST eCW1 ([facility]) Outpatient 3 [facility] [address] [place] [address] 09/21/2020 12:00:00 AM EST eCW1 ([facility]) Outpatient 3 [facility] [address] [place] [address] 09/17/2020 12:00:00 AM EST eCW1 ([facility]) Outpatient 3 [facility] [address] [place] [address] 09/17/2020 12:00:00 AM EST eCW1 ([facility]) Outpatient Attender: Marielle ALVAREZ ER-RAD 09/16/2020 09:50 :00 AM EST [facility] Outpatient 3 [facility] [address] [place] [address] 09/16/2020 12:00:00 AM EST eCW1 ([facility]) Outpatient Attender: BRODERICK LOVE MDAttender: BRODERICK Snyder MD ER-OPT 09/15/2020 07:53:00 AM EST - 10/15/2020 12:00:00 AM EST [facility] Patient discharged. Outpatient 3 [facility] [address] [place] [address] 09/14/2020 12:00:00 AM EST eCW1 ([facility]) Outpatient Attender: HERMAN MEDRANO MD CPSCAORT-CPSCNGSR 09/08 03:54:00 PM EST - 09/08/2020 03:55:00 PM EST [facility] Patient discharged. Outpatient 3 [facility] [address] [place] [address] 09/07/2020 12:00:00 AM EST eCW1 ([facility]) ([id number]) TeleVisit 30 min 3 [facility] [address] [place] [address] 09/03/2020 12:00:00 AM EST eCW1 ([facility]) Outpatient 3 [facility] [address] [place] [address] 09/02/2020 12:00:00 AM EST eCW1 ([facility]) Outpatient Attender: BRODERICK LOVE MDAttender: BRODERICK Snyder MD ER-OPT 09/01/2020 07:45:00 AM EST - 09/14/2020 12:00:00 AM EST [facility] Patient discharged. Outpatient 3 [facility] [address] [place] [address] 08/28/2020 12:00:00 AM EST eCW1 ([facility]) Outpatient 3 [facility] [address] [place] [address] 08/24/2020 12:00:00 AM EST eCW1 ([facility]) Outpatient 3 [facility] [address] [facility] [address] 08/19/2020 12:00:00 AM EST eCW1 ([facility]) Outpatient Attender: ARPIT COVINGTON ER-CARD 07/30/2020 07:00 :00 AM EDT [facility] Outpatient Attender: Marielle ALVAREZ ER-LAB 07/30/2020 06:04 :00 AM EDT [facility] Outpatient 3 [facility] [address] [place] [address] 07/29/2020 12:00:00 AM EDT eCW1 ([facility]) Outpatient 3 [facility] [address] [place] [address] 07/29/2020 12:00:00 AM EDT eCW1 ([facility]) [facility] Internal Medicine [address] [facility] [address] [place] [address] 07/23/2020 12:00:00 AM EDT eCW1 ([facility]) Outpatient 3 [facility] [address] [place] [address] 07/02/2020 12:00:00 AM EDT eCW1 ([facility]) Outpatient Attender: BRODERICK LOVE MDAttender: BRODERICK Snyder MD ER-RAD 06/26/2020 12:24:00 AM EDT [facility] Outpatient 3 [facility] [address] [place] [address] 06/16/2020 12:00:00 AM EDT eCW1 ([facility]) Outpatient 3 [facility] [address] [place] [address] 06/04/2020 12:00:00 AM EDT eCW1 ([facility]) Outpatient 3 [facility] [address] [place] [address] 06/03/2020 12:00:00 AM EDT eCW1 ([facility]) Preadmit Attender: Jessica Barry MD 05/27/2020 01:21:00 PM EDT [facility] Outpatient Attender: COLIN BARNETT PAConsultant: SANDOR ALVAREZ ER-LAB-PNP 05/26/2020 06:10:00 AM EDT [facility] Outpatient 3 [facility] [address] [place] [address] 05/22/2020 12:00:00 AM EDT eCW1 ([facility]) Outpatient Attender: COLIN ALVAREZ CPSCAORT-CPSCADIS 09:32:00 AM EDT - 05/15/2020 09:33:00 AM EDT [facility] Patient discharged. Outpatient [address] [facility] [address] [place] [address] 04/29/2020 12:00:00 AM EDT eCW1 ([facility]) Outpatient 3 [facility] [address] [place] [address] 04/13/2020 12:00:00 AM EDT eCW1 ([facility]) Outpatient Attender: JANIS ALVAREZ ER-RAD 02/26/2020 03:18:[address] [facility] Orthopedics [address] [facility] [address] [place] [address] 02/26/2020 12:00:00 AM EDT eCW1 ([facility]) Outpatient Attender: Jessica Barry MD 02/25/2020 03:10:00 PM EDT [facility] Outpatient Attender: BRANDON ALVAREZ-CAttender: NADER COSTA MD ER-LAB 02/21/2020 08:32:[address] [facility] [address] [facility] [address] [place] [address] 02/20/2020 12:00:00 AM EDT eCW1 ([facility]) [facility] Internal Medicine [address] [address] 01/23/2020 12:00:00 AM EDT eCW1 ([facility]) Outpatient Attender: Marielle ALVAREZ ER-LAB 01/10/2020 08:34 :00 AM EDT [facility] Outpatient Attender: HERMAN MEDRANO MD ER-WHS 11/21/2019 09:31:[address] [facility] Internal Medicine [address] [place] [address] 11/20/2019 12:00:00 AM EST eCW1 ([facility]) [facility] Internal Medicine [address] [place] [address] 11/19/2019 12:00:00 AM EST eCW1 ([facility]) Outpatient Attender: COLIN ALVAREZ CPSCAORT-CPSCADIS 08:53:00 AM EST - 11/11/2019 08:54:00 AM EST [facility] Patient discharged. [facility] Internal Medicine [address] [address] 11/11/2019 12:00:00 AM EST eCW1 ([facility]) [facility] Nephrology [address] [facility] [address] [place] [address] 11/04/2019 12:00:00 AM EST eCW1 ([facility]) [facility] Internal Medicine [address] [place] [address] 10/24/2019 12:00:00 AM EST eCW1 ([facility]) Outpatient Attender: HERMAN MEDRANO MD ER-ASUR 09/23/2019 08:25:00 AM EST [facility] Admission cancelled. Disregard status an d admitted date. [facility] Internal Medicine [address] [place] [address] 09/19/2019 12:00:00 AM EST eCW1 ([facility]) [facility] Internal Medicine [address] [place] [address] 09/10/2019 12:00:00 AM EST eCW1 ([facility]) Outpatient Attender: NADER HURTADO MD 08/28/2019 03:29:0 0 PM [facility] Outpatient Attender: Kj Cheekttender: KJ MCKEON MD ER-RAD 08/21/2019 12:42:00 AM [facility] Outpatient Attender: Kj Cheekttender: KJ MCKEON MD ER-CTCMEDONC 08/01/2019 09:04:00 AM EDT [facility] Outpatient Attender: BRANDON STOKES PA-C ER-WHS 07/24/2019 07:45:00 AM EDT [facility] Outpatient Attender: Marielle Salgado PAConsultant: BRANDON STOKES PA-C ER-LAB 07/20/2019 07:17:00 AM EDT [facility] Outpatient Attender: Patric Taveras MDAttender: PATRIC TAVERAS MD [facility] ER-CTCMEDONC 02/06/2019 08:52:00 AM EDT [facility] Outpatient Attender: Marielle ALVAREZ ER-LAB-PNP 01/24/2019 09:46:00 AM EDT [facility] Outpatient Attender: Marielle Salgado PAConsultant: BRANDON STOKES PA-C ER-LAB 01/19/2019 06:39:00 AM EDT [facility] Outpatient Attender: Marielle ALVAREZ ER-WHS 11/12/2018 12:23 :00 AM EST [facility] Outpatient Attender: PATRIC TAVERAS MD [facility] 08/08/2018 08:31:00 AM T [facility] Insurance Providers Payer name Policy type / Coverage type Policy ID Covered constitution party ID Covered constitution party's relationship to leal Policy Leal Plan Information EMEDNY [id number] SP [id number] MEDICAID [id number] S [id number] MEDICAID PROF FEES [id number] S E [id number] MEDICAID PROF FEES [id number] S E [id number] MEDICAID PROF FEES [id number] S E [id number] MEDICAID [id number] [facility] [id number] ANSI-Medicaid [id number] ANSI-Medicaid [id number] ANSI-Medicaid [id number] ANSI-Medicaid [id number] ANSI-Medicaid [id number] ANSI-Medicaid [id number] ANSI-Medicaid [id number] ANSI-Medicaid [id number] ANSI-Medicaid [id number] ANSI-Medicaid [id number] ANSI-Medicaid [id number] ANSI-Medicaid [id number] ANSI-Medicaid [id number] ANSI-Medicaid [id number] ANSI-Medicaid [id number] ANSI-Medicaid [id number] ANSI-Medicaid [id number] ANSI-Medicaid [id number] ANSI-Medicaid [id number] ANSI-Medicaid [id number] ANSI-Medicaid [id number] ANSI-Medicaid [id number] ANSI-Medicaid [id number] ANSI-Medicaid [id number] ANSI-Medicaid [id number] ANSI-Medicaid [id number] [facility]-Medicaid [id number] [facility]-Medicaid [id number] [facility]-Medicaid [id number] ANSI-Medicaid [id number] [facility] [id number] SELF-PAY UNAVAILABLE S UNAVAILA BLE SELF-PAY UNAVAILABLE S UNA[place]ILA BLE MEDICAID [id number] S [id number] MEDICAID [id number] S [id number] [facility] [id number] S [id number] [employer] [id number] [facility] [id number] [employer] [id number] [facility] [id number] Problems, Conditions, and Diagnoses Code Display Name Description Problem Type Effective Dates Data Source(s) N28.89 [id number] Right kidney mass Problem 10/21/2020 12:00:0 0 AM EST eCW1 ([facility]) Z01.818 Pre-procedure evaluation check Preop testing Problem 10/02/2020 12:00:00 AM EST eCW1 ([facility]) N28.89 Renal mass Renal mass Problem 10/02/2020 12:00:00 AM ES T eCW1 ([facility]) Z96.652 [id number] History of total left knee replacemen t Problem 09/30/2020 12:00:00 AM EST eCW1 ([facility]) N28.89 [id number] Right renal mass Problem 09/17/2020 12:00:00 AM EST eCW1 ([facility]) N94.9 [id number] Adnexal cyst Problem 09/17/2020 12:00:00 AM EST eCW1 ([facility]) E27.8 [id number] Right adrenal mass Problem 09/14/2020 12:00:00 AM EST eCW1 ([facility]) M17.12 [id number] Primary osteoarthritis of left knee Pr oblem 02/26/2020 12:00:00 AM EDT eCW1 ([facility]) M17.12 [id number] Primary osteoarthritis of left knee Pr oblem 02/26/2020 12:00:00 AM EDT eCW1 ([facility]) N28.89 Other specified disorders of kidney and ureter OTHER SPECIFIED DISORDERS OF KIDNEY AND Diagnosis 10/20/2020 09:07:00 AM [facility] Z01.818 Encounter for other preprocedural examin ation ENCOUNTER FOR OTHER PREPROCEDURAL EXAMINATION Diagnosis 10/20/2020 09:07:00 AM [facility] Z01.812 Encounter for preprocedural laboratory e xamination ENCOUNTER FOR PREPROCEDURAL LABORATORY E Diagnosis 10/15/2020 12:00:00 AM [facility] M85.862 Other specified disorders of bone densit y and structure, left lower leg OTH DISRD OF BONE DENSITY AND STRUCTURE, LEFT LOWE Diagnosis 12:36:00 AM [facility] M17.12 Unilateral primary osteoarthritis, left knee UNILATERAL PRIMARY OSTEOARTHRITIS, LEFT KNEE Diagnosis 10/01/2020 12:36:00 AM [facility] K57.90 Diverticulosis of intestine, part unspecified, without perforation or abscess without bleeding DVRTCLOS OF INTEST, PART UNSP, W/O PERF OR ABSCESS Diagnosis 09/25/2020 02:26:00 AM [facility] N83.202 UNSPECIFIED OVARIAN CYST, LEFT SIDE UNSPECIFIED OVARIAN CYST, LEFT SIDE Diagnosis 09/25/2020 02:26:00 AM [facility] N83.201 UNSPECIFIED OVARIAN CYST, RIGHT SIDE UNS PECIFIED OVARIAN CYST, RIGHT SIDE Diagnosis 09/25/2020 02:26:00 AM [facility] K76.89 Other specified diseases of liver OTHER SPECIFIE D DISEASES OF LIVER Diagnosis 09/25/2020 02:26:00 AM [facility] K76.0 Fatty (change of) liver, not elsewhere c lassified FATTY (CHANGE OF) LIVER, NOT ELSEWHERE CLASSIFIED Diagnosis 09/25/2020 02:26:00 AM [facility] N94.9 Unspecified condition associ ated with female genital organs and menstrual cycle UNSP COND ASSOC W FEMALE GENITAL ORGANS AND MENSTR Diagnosis 09/25/2020 02:26:00 AM [facility] C64.1 Malignant neoplasm of right kidney, exce pt renal pelvis MALIGNANT NEOPLASM OF RIGHT KIDNEY, EXCEPT RENAL PELVIS Diagnosis 09/25/2020 02:26:00 AM [facility] Z79.82 FCI (current) use of aspirin SHELTER (CU RRENT) USE OF ASPIRIN Diagnosis 09/24/2020 08:55:00 AM [facility] Z96.652 Presence of left artificial knee joint P RESENCE OF LEFT ARTIFICIAL KNEE JOINT Diagnosis 09/24/2020 08:55:00 AM [facility] B96.89 Other specified bacterial ag ents as the cause of diseases classified elsewhere OTH BACTERIAL AGENTS THE CAUSE OF DISEASES CLAS Diagnosis 09/24/2020 08:55:00 AM [facility] N39.0 Urinary tract infection, site not specif ied URINARY TRACT INFECTION, SITE NOT SPECIFIED Diagnosis 09/24/2020 08:55:00 AM [facility] Z92.3 Personal history of irradiation PERSONAL HISTORY OF IR RADIATION Diagnosis 09/24/2020 08:55:00 AM [facility] 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 C50.419 Diagnosis 09/24/2020 08:55:00 AM [facility] Z85.3 Personal history of malignant neoplasm o f breast PERSONAL HISTORY OF MALIGNANT NEOPLASM OF BREAST Diagnosis 09/24/2020 08:55:00 AM [facility] E27.8 Other specified disorders of adrenal gla nd OTHER SPECIFIED DISORDERS OF ADRENAL GLAND Diagnosis 09/16/2020 09:50:00 AM [facility] Z47.1 Aftercare following joint replacement gaxiola rgery AFTERCARE FOLLOWING JOINT REPLACEMENT SURGERY Diagnosis 09/15/2020 07:53:00 AM EST [facility] Z51.89 Encounter for other specified aftercare ENCOUNTER FOR OTHER SPECIFIED AFTERCARE Diagnosis 09/15/2020 07:53:00 AM EST [facility] I10 Essential (primary) hypertension ESSENTIAL (PRIMARY) H YPERTENSION Diagnosis 07/30/2020 07:00:00 AM [facility] E55.9 Vitamin D deficiency, unspecified VITAMIN D DEFI CIENCY, UNSPECIFIED Diagnosis 07/30/2020 06:04:00 AM [facility] R73.03 PREDIABETES PREDIABETES Diagnosis 07/30/2020 06:04:00 AM [facility] E78.5 Hyperlipidemia, unspecified HYPERLIPIDEMIA, UNSPECIFIE D Diagnosis 07/30/2020 06:04:00 AM [facility] Y93.9 Activity, unspecified ACTIVITY, UNSPECIFIED Diagnosis 06/26/2020 12:24:00 AM [facility] Y99.9 Unspecified external cause status UNSPECIFIED EX TERNAL CAUSE STATUS Diagnosis 06/26/2020 12:24:00 AM [facility] Y92.[address] or not applicable UNSPECIFIED PLACE OR NOT APPLICABLE Diagnosis 06/26/2020 12:24:00 AM [facility] X58.XXXA Exposure to other specified factors, ini tial encounter EXPOSURE TO OTHER SPECIFIED FACTORS, INITIAL ENCOU Diagnosis 06/26/2020 12:24:00 A M [facility] M71.22 Synovial cyst of popliteal space [Saravia] , left knee SYNOVIAL CYST OF POPLITEAL SPACE [SARAVIA], LEFT KNE Diagnosis 06/26/2020 12:24:00 AM [facility] M22.42 Chondromalacia patellae, left knee CHONDROMALACI A PATELLAE, LEFT KNEE Diagnosis 06/26/2020 12:24:00 AM [facility] M25.462 Effusion, left knee EFFUSION, LEFT KNEE Diagnosis 0 06/26/2020 12:24:00 AM [facility] S83.242A Other tear of medial meniscu s, current injury, left knee, initial encounter OTH TEAR OF MEDIAL MENISCUS, CURRENT INJURY, LEFT Diagnosis 06/26/2020 12:24:00 AM EDT [facility] K27.9 Peptic ulcer, site unspecifi ed, unspecified as acute or chronic, without hemorrhage or perforation PEPTIC ULC, SITE UNSP, UNSP AC OR CHR , W/O HEMOR OR PERF Diagnosis 05/26/2020 06:10:00 AM EDT [facility] K27.9 Peptic ulcer, site unspecifi ed, unspecified as acute or chronic, without hemorrhage or perforation PEPTIC ULC, SITE UNSP, UNSP AC OR CHR , W/O HEMOR OR PERF Diagnosis 05/15/2020 09:32:00 AM EDT [facility] M25.762 Osteophyte, left knee OSTEOPHYTE, LEFT KNEE Diagnosis 02/26/2020 03:18:00 PM [facility] M25.562 Pain in left knee PAIN IN LEFT KNEE Diagnosis 02/25 03:18:00 PM [facility] M85.80 Other specified disorders of bone density and structure, unspecified site OTH DISRD OF BONE DENSITY AND STRUCTURE, UNSPECIFI Diagnosis 02/25/2020 07:59:00 AM [facility] R10.13 Epigastric pain EPIGASTRIC PAIN Diagnosis 09/23/2019 08:2 5:00 AM [facility] K21.0 Gastro-esophageal reflux disease with es ophagitis GASTRO-ESOPHAGEAL REFLUX DISEASE WITH ESOPHAGITIS Diagnosis 09/23/2019 08:25:00 AM [facility] B96.81 Helicobacter pylori [H. pylo ri] as the cause of diseases classified elsewhere HELICOBACTER PYLORI THE CAUSE OF DISEASES CLASS Diagnosis 09/23/2019 08:25:00 AM [facility] K29.50 Unspecified chronic gastritis without bl eeding UNSPECIFIED CHRONIC GASTRITIS WITHOUT BLEEDING Diagnosis 09/23/2019 08:25:00 AM [facility] Z80.0 Family history of malignant neoplasm of digestive organs FAMILY HISTORY OF MALIGNANT NEOPLASM OF Diagnosis 09/23/2019 08:25:00 AM [facility] K20.9 Esophagitis, unspecified ESOPHAGITIS, UNSPECIFIED Diag nosis 09/23/2019 08:25:00 AM [facility] K29.60 Other gastritis without bleeding OTHER GASTRITIS WITHOUT BLEEDING Diagnosis 09/23/2019 08:25:00 AM [facility] Surgeries/Procedures Procedure Description Date Indications Data Source(s) OFFICE OUTPATIENT VISIT 10 MINUTES OFFICE/OUTPATIENT VISIT E ST 05/15/2020 12:00:00 AM EDT [facility] PHYSICIAN TELEPHONE EVALUATION 11-20 MIN 01/23/2020 12 :00:00 AM EDT eCW1 ([facility]) Results ID Date Data Source [id number] 10/26/2020 05:28:00 [facility] Patient Name: YANI RODRÍGUEZ Date of : [birth year]Unit Number: [id number] Admission Status: REG RCROrdering Physician: Therapy Treatment NotePatient Name: YANI RODRÍGUEZ LDate of : 1955Date of Service: 10/26/2020 05:07 PMMedical Record #: [id number] #: [id number] Therapist: DINO Oshearovider: Outpatient Therapy ClinicProvider #:SOC [...] and CPT Codes Consisted of --EXERCISECPT Code: 59177 Modifiers: Minutes: 40 Units: 3Total Minutes: 40 [...] NoSigned: Dayana Kramer, PTState License #: [place] [id number]/Time Signed: 10/26/2020 5:25:35 PM Name Value Range Interpretation Code Description Data Arpil rce(s) Supporting Document(s) ID Date Data Source [id number] 10/23/2020 11:06:00 AM EST [facility] Patient Name: YANI RODRÍGUEZ Date of : [birth year]Unit Number: [id number] Admission Status: REG RCROrdering Physician: Therapy Treatment NotePatient Name: YANI RODRÍGUEZ LDate of : 1955Date of Service: 10/23/2020 10:54 AMMedical Record #: [id number] #: [id number] Therapist: DINO Oshearovider: Outpatient Therapy ClinicProvider #:SOC [...] Codes Consisted of --HOT PACK/COLD PACKCPT Code: 86392 Modifiers: Minutes: Units:EXERCISECPT Code: 59058 Modifiers: Minutes: 30 Units: 2Total Minutes: 30 [...] NoSigned: Dayana Kramer, PTState License #: [place] [id number]/Time Signed: 10/23/2020 11:03:55 AM Name Value Range Interpretation Code Description Data April rce(s) Supporting Document(s) ID Date Data Source [id number] 10/22/2020 11:00:00 AM EST [facility] Name Value Range Interpretation Code Description Data April rce(s) Supporting Document(s) SARS coronavirus 2 RNA Not Detected [facility] This lab was ordered by [facility] and reported by [facility]. ID Date Data Source [id number] 10/24/2020 11:11:00 AM EST [facility] Performed at: [facility] [employer] [place] [address] [id number] Director: Tayla Licona PhD, Phone: [phone] Name Value Range Interpretation Code Description Data April rce(s) Supporting Document(s) SARS-CoV-2, HEIDI Not Detected Not Detected N [facility] This nucleic acid amplification test was [...] SARS-CoV-2 virusand/or diagnosis of COVID-19 infection under (b)(1) of the Act, 21 U.S.C. 360bbb-3(b) (1), [...] Acid Amplification (HEIDI) ID Date Data Source [id number] 10/21/2020 11:33:00 AM EST [facility] Patient Name: YANI RODRÍGUEZ Date of : [birth year]Unit Number: [id number] [facility] Physician: Therapy Treatment NotePatient Name: YANI RODRÍGUEZ LDate of : 1955Date of Service: 10/21/2020 11:09 AMMedical Record #: [id number] #: [id number] Therapist: DINO Oshearovider: Outpatient Therapy ClinicProvider #:SOC [...] and CPT Codes Consisted of --EXERCISECPT Code: 23498 Modifiers: Minutes: 30 Units: 2Total Minutes: 30 [...] NoSigned: Dayana Kramer, PTState License #: [place] [id number]/Time Signed: 10/21/2020 11:15:53 AM Name Value Range Interpretation Code Description Data April e(s) Supporting Document(s) ID Date Data Source [id number] 10/20/2020 10:23:00 AM EST [facility] Name Value Range Interpretation Code Description Data April rce(s) Supporting Document(s) GLU 94 mg/dL 70-110 [facility] Patients taking Sulfasalazine may have f alsely depressedGlucose levels. Patients taking Sulfapyridine may havefalsely elevated Glucose levels. Patients should be drawnfor Glucose before the initial administration of eitherdrug. BUN 22 mg/dL 7-23 [facility] CRE 0.828 mg/dL 0.500-1.300 [facility] GFR > 60 mL/min [facility] CHLORIDE 105 mmol/L 99-110 [facility] NA 144 mmol/L 136-147 [facility] POTASSIUM 4.6 mmol/L 3.5-5.1 [facility] TCO2 31 mmol/L 20-33 [facility] ANION GAP 12.6 10.0-20.0 [facility] CA 9.4 mg/dL 8.3-10.7 [facility] ID Date Data Source [id number] 10/20/2020 10:04:00 AM EST [facility] What anti-coagulants is pt. on ?? NONE Name Value Range Interpretation Code Description Data April rce(s) Supporting Document(s) APTT 25.5 SECONDS 21.2-31.2 [facility] NOTE NEW REFERENCE RANGE EFFECTIVE ID Date Data Source [id number] 10/20/2020 10:04:00 AM EST [facility] What anti-coagulants is pt. on ?? NONE Name Value Range Interpretation Code Description Data April rce(s) Supporting Document(s) INR 0.96 0.91-1.09 [facility] INR THERAPEUTIC RANGES Prophylaxis of ve nous thrombosis ] (high risk surgery) ]Treatment of venous thrombosis ]Treatment of pulmonary embolism ]Prevention of systemic embolism ] 2.0-3.0Tissue heart valves ]Acute myocardial infarction ]Valvular disease ]Atrial fibrillation ]Recurrent systemic embolism ] Mechanical prosthetic heart valves -------- 2.5-3.5 ID Date Data Source [id number] 10/20/2020 09:54:00 AM EST [facility] Name Value Range Interpretation Code Description Data April rce(s) Supporting Document(s) WBC 8.22 x10E3/uL 4.0-10.5 [facility] RBC 4.83 x10E6/uL 4.20-5.40 [facility] Hemoglobin 13.8 g/dL 12.0-16.0 [facility] Hematocrit 42.7 % 37.0-47.0 [facility] MCV 88.4 fL 81.0-99.0 [facility] MCH 28.6 pg 27.0-31.0 [facility] MCHC 32.3 g/dL 32.7-35.6 [facility] RDW 13.1 % 11.5-14.0 [facility] Platelet count 343 x10E3/uL 150-450 N [facility] MPV 9.4 fl 6.9-9.5 [facility] Neutrophils 65.9 % 34-64 H [facility] Lymphocytes 23.1 % 25-45 L [facility] Monocytes 7.4 % 1.7-10.6 [facility] Eosinophils 2.4 % 0.4-7.0 [facility] Basophils 0.6 % 0.1-2.0 [facility] Imm. Gran. 0.6 % 0.1-2.0 [facility] Abs. Neutro. 5.41 x10E3/uL 1.2-7.6 N [facility] Abs. Lymph. 1.90 x10E3/uL 1.0-3.5 N [facility] Abs. Taylor. 0.61 x10E3/uL 0.1-1.0 N [facility] Abs. Eosin. 0.20 x10E3/uL 0.1-0.7 N [facility] Abs. Baso. 0.05 x10E3/uL 0.0-0.1 N [facility] Abs. Imm. Gran. 0.05 x10E3/uL 0.0-0.1 N [facility] spital ANRBC% 0 % 0 [facility] ID Date Data Source [id number] 10/14/2020 10:31:00 AM EST [facility] Patient Name: YANI RODRÍGUEZ Date of : [birth year]Unit Number: [id number] Admission Status: REG RCROrdering Physician: Therapy Treatment NotePatient Name: YANI RODRÍGUEZ LDate of : 1955Date of Service: 10/14/2020 10:06 AMMedical Record #: [id number] #: [id number] Therapist: Bertha Osheavider: Outpatient Therapy ClinicProvider #:SOC Date: 09/01/2020-- Primary [...] and CPT Codes Consisted of --EXERCISECPT Code: 72891 Modifiers: Minutes: 30 Units: 2GAIT TRAININGCPT Code: 34759 Modifiers: Minutes: 10 Units: 1Total Minutes: 40 [...] NoSigned: Dayana Kramer, PTState License #: [place] [id number]/Time Signed: 10/14/2020 10:29:16 AM Name Value Range Interpretation Code Description Data April rce(s) Supporting Document(s) ID Date Data Source [id number] 10/12/2020 03:44:00 PM EST [facility] Patient Name: YANI RODRÍGUEZ Date of : [birth year]Unit Number: [id number] Admission Status: REG RCROrdering Physician: Therapy Treatment NotePatient Name: YANI RODRÍGUEZ LDate of : 1955Date of Service: 10/12/2020 03:34 PMMedical Record #: [id number] #: [id number] Therapist: DINO Oshearovider: Outpatient Therapy ClinicProvider #:SOC [...] and CPT Codes Consisted of --EXERCISECPT Code: 96625 Modifiers: Minutes: 30 Units: 2GAIT TRAININGCPT Code: 76986 Modifiers: Minutes: 10 Units: 1Total Minutes: 40 [...] NoSigned: Dayana Kramer, PTState License #: [place] [id number]/Time Signed: 10/12/2020 3:43:15 PM Name Value Range Interpretation Code Description Data April rce(s) Supporting Document(s) ID Date Data Source [id number] 10/08/2020 12:43:00 PM EST [facility] Patient Name: YANI RODRÍGUEZ Date of : [birth year]Unit Number: [id number] [facility] Phys[facility]: Therapy Treatment NotePatient Name: YANI RODRÍGUEZ LDate of : 1955Date of Service: 10/08/2020 12:36 PMMedical Record #: [id number] #: [id number] Therapist: Dayana Kramer PTProvider: Outpatient Therapy ClinicProvider [...] and CPT Codes Consisted of --EXERCISECPT Code: 82973 Modifiers: Minutes: 30 Units: 2GAIT TRAININGCPT Code: 82435 Modifiers: Minutes: 10 Units: 1Total Minutes: 40 [...] NoSigned: Dayana Kramer, PTState License #: [place] [id number]/Time Signed: 10/08/2020 12:41:14 PM Name Value Range Interpretation Code Description Data April rce(s) Supporting Document(s) ID Date Data Source [id number] 10/06/2020 10:26:00 AM EST [facility] Patient Name: YANI RODRÍGUEZ Date of : [birth year]Unit Number: [id number] Admission Status: REG RCROrdering Physician: Therapy Treatment NotePatient Name: YANI RODRÍGUEZ LDate of : 1955Date of Service: 10/06/2020 10:00 AMMedical Record #: [id number] #: [id number] Therapist: DINO Oshearofarooqder: Outpatient Therapy ClinicProvider #:SOC [...] and CPT Codes Consisted of --EXERCISECPT Code: 53624 Modifiers: Minutes: 30 Units: 2GAIT TRAININGCPT Code: 64094 Modifiers: Minutes: 10 Units: 1Total Minutes: 40 [...] very well.She will ice at homePain In: 010Pain Out: 0/10-- Progressive Exercises --mat exercisesQuantity: 1.5# [...] NoSigned: Dayana Kramer, PTState License #: [place] [id number]/Time Signed: 10/06/2020 10:13:52 AM Name Value Range Interpretation Code Description Data April rce(s) Supporting Document(s) ID Date Data Source [id number] 10/01/2020 03:42:00 PM EST [facility] Exam Number: [id number] OF EXAMINATIO N: 10/01/2020 14:53 ESTTECHNIQUE: 3 [...] rce(s) Supporting Document(s) ID Date Data Source [id number] 09/30/2020 11:53:00 AM EST [facility] Patient Name: YANI RODRÍGUEZ Date of : [birth year]Unit Number: [id number] Admission Status: REG RCROrdering Physician: Therapy Progress ReportPatient Name: YANI RODRÍGUEZ LDate of : 1955Date of Service: 09/30/2020 11:50 AMMedical Record #: [id number] #: [id number] Therapist: DINO Oshearovider: Outpatient Therapy ClinicProvider #:SOC Date: 09/01/2020Visits From SOC: 10-- Patient Information --Address: [address] [place] [address], Zip: [place], [place], [address]Cxdrqaajfz: UnknownGender: FemaleContact Person: HANNAH Avelino Physician Name: BRODERICK Chatman Physician Number:# of [...] without difficulty - Not Met-- Functional Goals; Side Boss --Patient will walk in the community without AD - Not MetPatient will drive herself to physical therapy when cleared - Not MetPatient will stand for an hour with mild difficulty - Not MetPatient will walk a flight of stairs with mild difficulty - MetPatient will put shoes and socks on without difficulty - MetPatient / Whitley laceyer concurs with established treatment plan and goals: Yes-- Physical Findings ---- Pain --Site: Joint Pain - Knee - LeftAt Rest: 0/10; With Activity: 4/10Exacerbating Factors: movement; Walking;Relieving Factors: Ice to the affected area; Rest;Goals for Pain: Decrease pain to 2/10 at the most - Not MetPalpation Comments: slight warmth and swelling but incision is clean and dry.Lower Extremity Functional Scale Score: 38/80Today do you [...] nd your home(3) A Little Bit of Exrddaanrq37. Getting into or out of your car(3) A Little Bit of Fzzdyisprl34. Walking 2 blocks(3) A Little Bit of Nafnywrghe28. Walking a mile(0) Extreme Difficulty or Unable to Perform Skiqdpcz94. Going up or down 10 stairs (about 1 flight or stairs)(3) A Little Bit of Wjqytndjzg22. Standing for 1 hour(2) Moderate Mawqpsptaj38. Sitting for 1 hour(2) Moderate Ofpmgmmfzz92. Running on even ground(0) Extreme Difficulty or Unable to Perform Bdkobbrg04. Making a sharp turns while running fast(0) Extreme Difficulty or Unable to Perform Tifvtjjq35. Running on uneven ground(0) Extreme Difficulty or Unable to Perform Qaeaokyb25. Hopping(0) Extreme Difficulty or Unable to Perform Xpbcdvyo53. Rolling over in bed(4) No DifficultyTotal Score: [...] raisewithout assistance-- Interventions/Plan --PT EVAL: MODERATE COMPLEXITY 85715DQB PACK/COLD PACK 87799BAHJKUKU 74026HBRE TRAINING 17108Vkhksoxvj of PT: Two times weeklyDuration of PT: [...] the goals. She is progressing very well.Signed: Daynaa Kramer, PTState License #: [place] [id number]/Time Signed: 09/30/2020 11:51:12 AM Name Value Range Interpretation Code Description Data April rce(s) Supporting Document(s) ID Date Data Source [id number] 09/30/2020 11:14:00 AM EST [facility] Patient Name: YANI RODRÍGUEZ Date of : [birth year]Unit Number: [id number] [facility]: [facility] Physician: Therapy Treatment NotePatient Name: YANI RODRÍGUEZ LDate of : 1955Date of Service: 09/30/2020 10:39 AMMedical Record #: [id number] #: [id number] Therapist: Dayana Kramer PTProvider: Outpatient Therapy ClinicProvider [...] and CPT Codes Consisted of --EXERCISECPT Code: 54461 Modifiers: Minutes: 25 Units: 2GAIT TRAININGCPT Code: 77009 Modifiers: Minutes: 20 Units: 1Total Minutes: 45 [...] around your home(3) A Little Bit of Jaqtttybiz17. Getting into or out of your car(3) A Little Bit of Ebjdwwmenq71. Walking 2 blocks(3) A Little Bit of Lztofzamwa53. Walking a mile(0) Extreme Difficulty or Unable to Perform Mjpcizwu91. Going up or down 10 stairs (about 1 flight or stairs)(3) A Little Bit of Rbqoibvgao61. Standing for 1 hour(2) Moderate Lzgomnauwk79. Sitting for 1 hour(2) Moderate Bgewzmdzwh36. Running on even ground(0) Extreme Difficulty or Unable to Perform Etkhbgjq98. Making a sharp turns while running fast(0) Extreme Difficulty or Unable to Perform Pcmasvgk51. Running on uneven ground(0) Extreme Difficulty or Unable to Perform Qhaqaxum79. Hopping(0) Extreme Difficulty or Unable to Perform Cwlsqdmr08. Rolling over in bed(4) No DifficultyTotal Score: [...] without difficulty - Not Met-- Functional Goals; Side Boss --Patient will walk in the community without [...] NoSigned: Dayana Kramer, PTState License #: [place] [id number]/Time Signed: 09/30/2020 11:11:55 AM Name Value Range Interpretation Code Description Data April rce(s) Supporting Document(s) ID Date Data Source [id number] 09/28/2020 10:29:00 AM EST [facility] [address] [address] FOLLOW UP NOTENAME: YANI RODRÍGUEZ LPHYSICIAN: JESSICA BARRY, MDDATE OF SERVICE: 09/24/20DATE OF : [birth year]ACCOUNT #: [id number]: YANI RODRÍGUEZDate: Sep 24, 2020DOB: 1955Physician: Zack Kimball F.N.P.-B.C., M.S.N.Dr. Patric Taveras M.D., M.P.H.[facility]-. Nereyda Gonzalez M.D.Dr. Wahib Zafar, M.D.Age: 64Note Title: Hematology/Medical Oncology Follow UpDiagnosis:Primary - C50.419 - Malig neoplasm of upper-outer quadrant of unsp femalebreast, Diagnosed Nov 14, 2012 (Active)History of Problems:Problems / Chief Complaints:Invasive ductal carcinoma of the right breast, pT1cN0 M0. 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 Ms. RODRÍGUEZ has neversmoked. She has no [...] psychotropicdrugs.Vital Signs :Performed on Sep 24, 2020 09:50Qhlkhv72.50 rvIcldkq038.8 lbs(LOW)BSA (derived)2.09 sq.mBMI41.29 (HIGH)Fgzvpvvqigf57.1 BXodib38 /etgDkqhmifqxnr12 /gdqCY860/82Pulse Oximetry (O2 Sat)96 %Fall RiskModerate RiskPerformance Status:Perf. [...] discussions today.Laboratory:Test performed on Sep 24, 2020 10:64Iiyjom954 mmol/LPotassium4.6 mmol/HXeonbbly324 mmol/DEH120 mmol/LAnion Gap6.6 (LOW)BUN19 mg/dLCreatinine0.729 mg/dLCr Clearance (Est)135.6800 mL/mineGFR> 60 mL/fgzSdevozp02 mg/dLCalcium9.2 mg/dLProtein, Total7.5 g/dLAlbumin4.0 g/dLGlobulin3.5 g/dLA/G Ratio1.1Bilirubin, Total0.4 mg/dLALT (SGPT)44 U/LAST (SGOT)16 U/LAlkaline Xvdfetawozp617 U/L(HIGH)Cfyibhpygrwuko88.4 mIU/mLUa ColorYellowWBC7.14 x10E3/uLUa AppearanceClearRBC4.75 x10E6/uLUa GlucoseNegativ eHGB13.4 g/dLUa VdvcngcbcVtuwbfgaPFS86.8 %Ua TlkklikEdjktytvKYC65.1 fLUa Specific Gravity1.579QDC58.2 pgUa HtdjyOrfqhZAAO54.3 g/dL(LOW)Ua pH5.5RDW13.4 %Ua ProteinNegativePlatelet Pdkpt682 x10E3/uLUa Urobilinogen0.2 mg/dLMPV9.7 fl(HIGH)Ua NitritesNegativeNeutrophils4.52 x10E3/uLUa Leukocyte Esterase2+Lymphocytes1.71 x10E3/uLMonocytes0.61 x10E3/uLEosinophils0.20 x10E3/uLBasophils0.07 x10E3/uLImmature Grans0.03 x10E3/uLNeutrophil %63.4 %Lymphocyte %23.9 %(LOW)Monocyte %8.5 %Eosinophil %2.8 %Basophils %1.0 %Immature Grans %0.4 %U Micro: RBC3-5 RBCs/HPFU Micro: YSW68-62 WBCs/HPFU Micro: BacteriaFewU Micro: Epithelial CellsModerateTest performed on Aug 01, 2019 11:25CA 27.2920.7 U/mLOther test results are not available for this patient.Impression:Stage IA invasive ductal carcinoma of the right breast. ER/PA positive.HER-2/misha negative. Status post lumpectomy and sentinel [...] present, [facility], [facility] nephrectomy resection of the mass.Electronically signed by:Dr. Jessica BarryCC: Name Value Range Interpretation Code Description Data April rce(s) Supporting Document(s) ID Date Data Source [id number] 09/28/2020 03:56:00 PM EST [facility] Patient Name: YANI RODRÍGUEZ Date of : [birth year]Unit Number: [id number] Admission Status: REG RCROrdering Physician: Therapy Treatment NotePatient Name: YANI RODRÍGUEZ LDate of : 1955Date of Service: 09/28/2020 03:46 PMMedical Record #: [id number] #: [id number] Therapist: DINO Oshearovider: Outpatient Therapy ClinicProvider #:SOC [...] and CPT Codes Consisted of --EXERCISECPT Code: 07932 Modifiers: Minutes: 25 Units: 1GAIT TRAININGCPT Code: 11629 Modifiers: Minutes: 10 Units: 1Total Minutes: 35 [...] NoSigned: Dayana Kramer, PTState License #: [place] [id number]/Time Signed: 09/28/2020 3:54:09 PM Name Value Range Interpretation Code Description Data April rce(s) Supporting Document(s) ID Date Data Source [id number] 09/25/2020 12:18:00 PM EST [facility] Exam Number: [id number] OF EXAMINATIO N: 09/25/2020 11:21 ESTCT ABD&PEL [...] Martin Pat M.D. 09/25/202012:05 EST Reported By: Fanny PAT M.D. Signed By: Mary PAT M.D. Name Value Range Interpretation Code Description Data April rce(s) Supporting Document(s) ID Date Data Source [id number] 09/25/2020 12:43:00 PM [facility] Patient Name: YANI RODRÍGUEZ Date of : [birth year]Unit Number: [id number] Admission Status: REG RCROrdering Physician: Therapy Treatment NotePatient Name: YANI RODRÍGUEZ LDate of : 1955Date of Service: 09/25/2020 12:16 PMMedical Record #: [id number] #: [id number] Therapist: DINO Oshearovider: Outpatient Therapy ClinicProvider #:SOC [...] and CPT Codes Consisted of --EXERCISECPT Code: 03192 Modifiers: Minutes: 30 Units: 2GAIT TRAININGCPT Code: 58152 Modifiers: Minutes: 15 Units: 1Total Minutes: 45 [...] 5 minutes of going back and forth. Shealso used the nustep. Patient left before therapist [...] NoSigned: Dayana Kramer, PTState License #: [place] [id number]/Time Signed: 09/25/2020 12:41:56 PM Name Value Range Interpretation Code Description Data Paril rce(s) Supporting Document(s) ID Date Data Source [id number] 09/26/2020 01:59:00 PM EST [facility] MIXED CHELSY GROWN NO PATHOGENS ISOLATED Name Value Range Interpretation Code Description Data April rce(s) Supporting Document(s) ID Date Data Source [id number] 09/25/2020 09:07:00 AM EST [facility] Performed at: [facility] [address] [id number] Director: Stephany Givens MD, Phone: [phone] Name Value Range Interpretation Code Description Data April rce(s) Supporting Document(s) ERYTHROPOIETIN 15.4 mIU/mL 2.6-18.5 N [facility] [place] [place] [employer] DxI 800 Immunoass ay SystemValues obtained with different assay methods or kits cannotbe used interchangeably. Results cannot be interpreted asabsolute evidence of the presence or absence of malignantdisease. ID Date Data Source [id number] 09/24/2020 12:13:00 PM EST [facility] Name Value Range Interpretation Code Description Data April rce(s) Supporting Document(s) GLU 83 mg/dL 70-110 [facility] Patients taking Sulfasalazine may have f alsely depressedGlucose levels. Patients taking Sulfapyridine may havefalsely elevated Glucose levels. Patients should be drawnfor Glucose before the initial administration of eitherdrug. BUN 19 mg/dL 7-23 [facility] CRE 0.729 mg/dL 0.500-1.300 [facility] GFR > 60 mL/min [facility] CHLORIDE 110 mmol/L 99-110 [facility] NA 144 mmol/L 136-147 [facility] POTASSIUM 4.6 mmol/L 3.5-5.1 [facility] TCO2 32 mmol/L 20-33 [facility] ANION GAP 6.6 10.0-20.0 L [facility] CA 9.2 mg/dL 8.3-10.7 [facility] ALKALINE PHOS 145 U/L 45-117 H [facility] TP 7.5 g/dL 6.0-7.8 [facility] ALB 4.0 g/dL 3.5-5.0 [facility] ESRD Dialysis patient Albumin reference range: 2.9-4.4 g/dL GL 3.5 g/dL 2.3-3.5 [facility] A/G 1.1 1.0-2.5 [facility] T. BILIRUBIN 0.4 mg/dL 0.1-1.1 [facility] Total Bilirubin is n ot recommended forpatients undergoing treatment with eltrombopag (Promacta)due to the potential for falsely elevated results. ALTI 44 U/L 6-54 [facility] Patients taking Sulfasalazine and/or Sul fapyridine may havefalsely depressed ALT levels. Patients should be drawn forALT before the initial administration of either drug. AST 16 U/L 6-38 [facility] Patients taking Sulfasalazine and/or Sul fapyridine may havefalsely depressed AST levels. Patients should be drawn forAST before the initial administration of either drug. ID Date Data Source [id number] 09/24/2020 11:03:00 AM EST [facility] Name Value Range Interpretation Code Description Data April rce(s) Supporting Document(s) URINE COLOR Yellow [facility] UAPR Clear [facility] UGLU Negative NEGATIVE [facility] URINE BILIRUBIN [facility]IVE [facility] Negative NEGATIVE [facility] USG 1.025 1.010-1.025 [facility] UBLO Trace NEGATIVE [facility] UpH 5.5 5.0-8.0 [facility] UPRO Negative Negative [facility] UUB 0.2 mg/dL 0.2-1.0 [facility] UNIT Negative Negative [facility] ULEU 2+ Negative [facility] ID Date Data Source [id number] 09/24/2020 11:03:00 AM EST [facility] Name Value Range Interpretation Code Description Data April rce(s) Supporting Document(s) URINE RBC 3-5 RBCs/HPF NONE SEEN [facility] URINE WBC 11-20 WBCs/HPF NONE SEEN [facility] A URINE CULTURE HAS BEEN ADDED TO THIS S PECIMEN URINE BACTERIA Few NONE SEEN [facility] URINE EPI. Moderate NONE SEEN [facility] ID Date Data Source [id number] 09/24/2020 10:50:00 AM EST [facility] Name Value Range Interpretation Code Description Data April rce(s) Supporting Document(s) WBC 7.14 x10E3/uL 4.0-10.5 [facility] RBC 4.75 x10E6/uL 4.20-5.40 [facility] Hemoglobin 13.4 g/dL 12.0-16.0 [facility] Hematocrit 42.8 % 37.0-47.0 [facility] MCV 90.1 fL 81.0-99.0 [facility] MCH 28.2 pg 27.0-31.0 [facility] MCHC 31.3 g/dL 32.7-35.6 [facility] RDW 13.4 % 11.5-14.0 [facility] Platelet count 378 x10E3/uL 150-450 N [facility] ital MPV 9.7 fl 6.9-9.5 H [facility] Neutrophils 63.4 % 34-64 N [facility] Lymphocytes 23.9 % 25-45 L [facility] Monocytes 8.5 % 1.7-10.6 N [facility] Eosinophils 2.8 % 0.4-7.0 N [facility] Basophils 1.0 % 0.1-2.0 N [facility] Imm. Gran. 0.4 % 0.1-2.0 [facility] Abs. Neutro. 4.52 x10E3/uL 1.2-7.6 [facility] venkata Abs. Lymph. 1.71 x10E3/uL 1.0-3.5 N [facility] al Abs. Taylor. 0.61 x10E3/uL 0.1-1.0 N [facility] l Abs. Eosin. 0.20 x10E3/uL 0.1-0.7 N [facility] al Abs. Baso. 0.07 x10E3/uL 0.0-0.1 N [facility] l Abs. Imm. Gran. 0.03 x10E3/uL 0.0-0.1 [facility] spital ANRBC% 0 % 0 [facility] ID Date Data Source [id number] 09/23/2020 10:37:00 AM EST [facility] Exam Number: [id number] ON EXAMINATI ON: 09/23/2020 9:23 ESTU/S PELVIC(UTERUS [...] rce(s) Supporting Document(s) ID Date Data Source [id number] 09/23/2020 10:36:00 AM EST [facility] Exam Number: [id number] ON EXAMINATI ON: 09/23/2020 9:23 ESTU/S TRANSVAGINALHISTORY: Adnexal cystReal-time ultrasound imaging was performed utilizing B-mode/andrew scaleand color Doppler imaging where applicable.Uterus measures 6 x 3 x 5 cm. Endometrial stripe is 3 mm. Small amountof fluid is seen within the endometrial cavity. There is a 4.7 cmcyst of right ovary without torsion. There is no fluid in mjjydm-ac-bqnDRZUDVWTSQ:4.7 cm cyst of the right ovary without torsion.Electronically signed in PS360 by: Jose Martin Pat M.D. 09/23/202010:24 EST Reported By: Fanny PAT M.D. Signed By: Mary PAT M.D. Name Value Range Interpretation Code Description Data April rce(s) Supporting Document(s) ID Date Data Source US Pelvic Uterus & Ovaries - [id number] 09/23/2020 12:00:00 AM ES T eCW1 ([facility]) Name Value Range Interpretation Code Description Data April rce(s) Supporting Document(s) eCW1 ([facility]) ID Date Data Source [id number] 09/22/2020 01:05:00 PM EST [facility] Patient Name: YANI RODRÍGUEZ Date of : [birth year]Unit Number: [id number] Admission Status: REG RCROrdering Physician: Therapy Treatment NotePatient Name: YANI RODRÍGUEZ LDate of : 1955Date of Service: 09/22/2020 12:53 PMMedical Record #: [id number] #: [id number] Therapist: Pilar Oshea: Outpatient Therapy ClinicProvider #:SOC [...] and CPT Codes Consisted of --EXERCISECPT Code: 83848 Modifiers: Minutes: 30 Units: 2GAIT TRAININGCPT Code: 36408 Modifiers: Minutes: 15 Units: 1Total Minutes: 45 [...] NoSigned: Dayana Kramer, PTState License #: [place] [id number]/Time Signed: 09/22/2020 1:04:11 PM Name Value Range Interpretation Code Description Data April rce(s) Supporting Document(s) ID Date Data Source [id number] 09/18/2020 11:56:00 AM EST [facility] Patient Name: YANI RODRÍGUEZ Date of : [birth year]Unit Number: [id number] Admission Status: [facility] Physician: Therapy Treatment NotePatient Name: YANI RODRÍGUEZ LDate of : 1955Date of Service: 09/18/2020 10:47 AMMedical Record #: [id number] #: [id number] Therapist: DINO Oshearovider: Outpatient Therapy ClinicProvider #:SOC [...] and CPT Codes Consisted of --EXERCISECPT Code: 51216 Modifiers: Minutes: 30 Units: 2GAIT TRAININGCPT Code: 71139 Modifiers: Minutes: 15 Units: 1Total Minutes: 45 [...] over on her side . Therapisthad to coal picker her leg to get pillowsbetween her legs. In the parallel bars, therapist had her do hams curls andthere were instances when she could hardly coal picker her leg. The times thatshe picked it [...] reduce swelling before she went home.Pain In: 0/10Pain Out: 3/10-- Progressive Exercises --mat exercisesQuantity: 1# Unit: Sets: Reps: 15LAQQuantity: 1# Unit: Sets: Reps: 15sit to standQuantity: Unit: Sets: Reps: 15scifitQuantity: Unit: Sets: Reps: 8 minutesnustepQuantity: Unit: seat 8 Sets: L2 Reps: 12 minhams curlsQuantity: Unit: Sets: Reps: 10walking in the parallel bars without hold/adQuantity: Unit: Sets: Reps: 60 feetDischarge Planning was Discussed with Patient/Caregiver? NoSigned: Dayana Kramer, PTState License #: [place] [id number]/Time Signed: 09/18/2020 11:53:55 AM Name Value Range Interpretation Code Description Data April rce(s) Supporting Document(s) ID Date Data Source [id number] 09/16/2020 10:45:00 AM EST [facility] Exam Number: [id number] OF EXAMINATIO N: 09/16/2020 9:53 ESTU/S RENALCOMPARED [...] rce(s) Supporting Document(s) ID Date Data Source [id number] 09/15/2020 10:44:00 AM EST [facility] Patient Name: YANI RODRÍGUEZ Date of : [birth year]Unit Number: [id number] Admission Status: PRE RCROrdering Physician: Therapy Treatment NotePatient Name: YANI RODRÍGUEZ LDate of : 1955Date of Service: 09/15/2020 10:26 AMMedical Record #: [id number] #: [id number] Therapist: DINO Oshearovider: Outpatient Therapy ClinicProvider #:SOC [...] and CPT Codes Consisted of --EXERCISECPT Code: 73233 Modifiers: Minutes: 30 Units: 2GAIT TRAININGCPT Code: 01390 Modifiers: Minutes: 15 Units: 1Total Minutes: 45 [...] will ice at home.Pain In: 0/10Pain Out: 10-- Progressive Exercises --mat exercisesQuantity: 0.75 Unit: Sets: [...] Planning was Discussed with Patient/Caregiver? NoSigned: Dayana Kramer PTState License #: [place] [id number]/Time Signed: 09/15/2020 10:42:30 AM Name Value Range Interpretation Code Description Data April rce(s) Supporting Document(s) ID Date Data Source [id number] 09/11/2020 10:20:00 AM EST [facility] Patient Name: YANI RODRÍGUEZ Date of : [birth year]Unit Number: [id number] [facility] Physician: Therapy Treatment NotePatient Name: YANI RODRÍGUEZ LDate of : 1955Date of Service: 09/11/2020 10:01 AMMedical Record #: [id number] #: [id number] Therapist: aDyana Kramer PTProvider: Outpatient Therapy ClinicProvider #:SOC Date: [...] and CPT Codes Consisted of --EXERCISECPT Code: 24536 Modifiers: Minutes: 20 Units: 1GAIT TRAININGCPT Code: 79554 Modifiers: Minutes: 15 Units: 1Total Minutes: 35 [...] NoSigned: Dayana Kramer, PTState License #: [place] [id number]/Time Signed: 09/11/2020 10:19:18 AM Name Value Range Interpretation Code Description Data April rce(s) Supporting Document(s) ID Date Data Source [id number] 09/09/2020 10:34:00 AM EST [facility] Patient Name: YANI RODRÍGUEZ Date of : [birth year]Unit Number: [id number] Admission Status: REG RCROrdering Physician: Therapy Treatment NotePatient Name: YANI RODRÍGUEZ LDate of : 1955Date of Service: 09/09/2020 10:22 AMMedical Record #: [id number] #: [id number] Therapist: DINO Oshearovider: Outpatient Therapy ClinicProvider #:SOC [...] and CPT Codes Consisted of --EXERCISECPT Code: 83497 Modifiers: Minutes: 20 Units: 1GAIT TRAININGCPT Code: 29320 Modifiers: Minutes: 25 Units: 2Total Minutes: 45 [...] backward. Patient is progressing very wellPain In: 0/10Pain Out: 0/10-- Progressive Exercises --LAQQuantity: 0.75 Unit: Sets: Reps: 15standing,// bar exercises: marching, hip abd, hip flex, hams curlsQuantity: 0.75 Unit: Sets: Reps: 15sit to standQuantity: Unit: Sets: Reps: 15scifitQuantity: Unit: Sets: Reps: 4 minutesnustepQuantity: Unit: seat 9 Sets: L1 Reps: 11 minstep up/downQuantity: Unit: Sets: Reps: 15Discharge Planning was Discussed with Patient/Caregiver? NoSigned: Dayana Kramer, PTState License #: [place] [id number]/Time Signed: 09/09/2020 10:31:47 AM Name Value Range Interpretation Code Description Data April rce(s) Supporting Document(s) ID Date Data Source [id number] 09/04/2020 04:09:00 PM EST [facility] Patient Name: YANI RODRÍGUEZ Date of : [birth year]Unit Number: [id number] Admission Status: REG RCROrdering Physician: Therapy Treatment NotePatient Name: YANI RODRÍGUEZ LDate of : 1955Date of Service: 09/04/2020 04:02 PMMedical Record #: [id number] #: [id number] Therapist: Manuel Osheader: Outpatient Therapy ClinicProvider #:SOC [...] and CPT Codes Consisted of --EXERCISECPT Code: 99126 Modifiers: Minutes: 30 Units: 2GAIT TRAININGCPT Code: 35647 Modifiers: Minutes: 10 Units: 1Total Minutes: 40 Total Timed Minutes: 40 Total Untimed Minutes: 0Total Units: 3 Total Timed Units: 3 Total Untimed Units: 0Intervention Comments: Patient received exercises and tolerated them. Sheshowed improvement in Active range of motion of the knee in both directions.She denied pain after treatment. Patient is progressing very wellPain In: 01/23Pain Out: 0/10-- Progressive Exercises --mat exercisesQuantity: Unit: [...] NoSigned: Dayana Kramer, PTState License #: [place] [id number]/Time Signed: 09/04/2020 4:07:53 PM Name Value Range Interpretation Code Description Data April rce(s) Supporting Document(s) ID Date Data Source [id number] 09/01/2020 04:53:00 PM EST [facility] Patient Name: YANI RODRÍGUEZ Date of : [birth year]Unit Number: [id number] Admission Status: REG RCROrdering Physician: Therapy Treatment NotePatient Name: YANI RODRÍGUEZ LDate of : 1955Date of Service: 09/01/2020 04:46 PMMedical Record #: [id number] #: [id number] Therapist: DINO Oshearovider: Outpatient Therapy ClinicProvider #:SOC [...] Consisted of --PT EVAL: MODERATE COMPLEXITYCPT Code: 99059 Modifiers: Minutes: 35 Units: 1EXERCISECPT Code: 20678 Modifiers: Minutes: 15 Units: 1GAIT TRAININGCPT Code: 32695 Modifiers: Minutes: 10 Units: 1Total Minutes: 60 [...] with Patient/Caregiver? NoAdditional Comm ents: NASigned: Dayana Kramer PTState License #: [place] [id number]/Time Signed: 09/01/2020 4:51:17 PM Name Value Range Interpretation Code Description Data April rce(s) Supporting Document(s) ID Date Data Source [id number] 09/01/2020 04:48:00 PM EST [facility] Patient Name: YANI RODRÍGUEZ Date of : [birth year]Unit Number: [id number] Admission Status: REG RCROrdering Physician: Therapy Plan of Care (Initial Evaluation)Patient Name: YANI RODRÍGUEZ LDate of : 1955Date of Service: 09/01/2020 10:12 AMMedical Record #: [id number] #: [id number] Therapist: DINO Oshearovider: Outpatient Therapy ClinicProvider #:SOC Date: 09/01/2020Visits From [...] for an hour without difficulty-- Functional Goals; Side Boss --Patient will walk in the community without [...] around your home(1) Quite a Bit of Peqlxccjcd11. Getting into or out of your car(3) A Little Bit of Ygfbsljovx58. Walking 2 blocks(2) Moderate Zjjgmrotvy11. Walking a mile(1) Quite a Bit of Lgeyhkxijm72. Going up or down 10 stairs (about 1 flight or stairs)(3) A Little Bit of Bhwfirkldg59. Standing for 1 hour(1) Quite a Bit of Vkadzvlmbe59. Sitting for 1 hour(3) A Little Bit of Fuhenfbovs30. Running on even ground(0) Extreme Difficulty or Unable to Perform Bosnitto16. Making a sharp turns while running fast(0) Extreme Difficulty or Unable to Perform Sysopzjl97. Running on uneven ground(0) Extreme Difficulty or Unable to Perform Ylhotjep77. Hopping(0) Extreme Difficulty or Unable to Perform Tusqagxh75. Rolling over in bedTotal Score: 23/80(C) 1995 [...] raisewithout assistance-- Interventions/Plan --PT EVAL: MODERATE COMPLEXITY 07246KPD PACK/COLD PACK [id number] 60212DWMJ TRAINING 49544Xgjisyfje of PT: Two times weeklyDuration of PT: 6 weeksIntervention Comments: Patient presents with pain , weakness and limitedmobility s/p left TKR. She will benefit from skilled physical therapy toreduce pain and improve function.Signed: Dayana Kramer, PTState License #: [place] [id number]/Time Signed: 09/01/2020 4:46:04 PMSigned: Date/Time: Physician: BRODERICK LAROSE certify the need for these services furnished under thisplan of treatment while under my care. Name Value Range Interpretation Code Description Data April rce(s) Supporting Document(s) ID Date Data Source [id number] 09/01/2020 04:48:00 PM EST [facility] Patient Name: YANI RODRÍGUEZ Date of : [birth year]Unit Number: [id number] Admission Status: REG RCROrdering Physician: Therapy Initial Evaluation / ExaminationPatient Name: YANI RODRÍGUEZ LDate of : 1955Date of Service: 09/01/2020 10:12 AMMedical Record #: [id number] #: [id number] Therapist: DINO Oshearovider: Outpatient Therapy ClinicProvider #:SOC Date: 09/01/2020-- Patient Information --Address: [address] [place] [address], Zip: [place], [place], [address]Gqyybevsuu: UnknownGender: FemaleContact Person: HANNAH Avelino Physician Name: BRODERICK Chatman Physician Number:# of [...] lives with her . She works in [employer] and is on her feet a lot. [...] for an hour without difficulty-- Functional Goals; Halfway --Patient will walk in the community without [...] around your home(1) Quite a Bit of Rtetfycbav99. Getting into or out of your car(3) A Little Bit of Nskknhiwbm97. Walking 2 blocks(2) Moderate Skfbqytiml08. Walking a mile(1) Quite a Bit of Erlybtidns54. Going up or down 10 stairs (about 1 flight or stairs)(3) A Little Bit of Zfeopffosj69. Standing for 1 hour(1) Quite a Bit of Jrdvzorxvo71. Sitting for 1 hour(3) A Little Bit of Lfzjnhcahx20. Running on even ground(0) Extreme Difficulty or Unable to Perform Pzmtdvsh43. Making a sharp turns while running fast(0) Extreme Difficulty or Unable to Perform Nkfgysew62. Running on uneven ground(0) Extreme Difficulty or Unable to Perform Hfugtxyi85. Hopping(0) Extreme Difficulty or Unable to Perform Obglpxud91. Rolling over in bedTotal Score: 23/80(C) 1995 [...] EVAL: MODERATE COMPLEXITY 971 62HOT PACK/COLD PACK [id number] 94400LGAW TRAINING 40546Rgdnjjqli of PT: Two times weeklyDuration of PT: 6 weeksIntervention Comments: Patient presents with pain , weakness and limitedmobility s/p left TKR. She will benefit from skilled physical therapy toreduce pain and improve function.Signed: Dayaan Kramer, PTState License #: [place] [id number]/Time Signed: 09/01/2020 4:46:04 PM Name Value Range Interpretation Code Description Data April rce(s) Supporting Document(s) ID Date Data Source [id number] 08/20/2020 09:51:00 AM EST [facility] Name Value Range Interpretation Code Description Data April rce(s) Supporting Document(s) SARS coronavirus 2 RNA [facility] This lab was ordered by [facility] and reported by [facility]. ID Date Data Source [id number] 08/14/2020 12:21:00 PM EDT [facility] Exam Number: [id number] Reporte d By: - KLARISSA LY MD Signed By: KLARISSA LY MD Name Value Range Interpretation Code Description Data April rce(s) Supporting Document(s) ID Date Data Source X Ray Chest 2 Views 07/31/2020 09:05:21 AM EDT eCW1 ([facility]) Name Value Range Interpretation Code Description Data April rce(s) Supporting Document(s) X Ray Chest 2 Views eCW1 ([facility]) ID Date Data Source [id number] 07/31/2020 09:03:06 AM EDT eCW1 ([facility]) Name Value Range Interpretation Code Description Data April rce(s) Supporting Document(s) EKG 17416 eCW1 ([facility]) ID Date Data Source [id number] 07/30/2020 08:49:00 AM [facility] Ex[facility] Number: [id number], FRONTAL AND LATERALDATE OF EXAMINATION: 07/30/2020 7:02 [...] rce(s) Supporting Document(s) ID Date Data Source [id number] 08/01/2020 09:54:00 AM EDT [facility] MIXED CHELSY GROWN NO PATHOGENS ISOLATED Name Value Range Interpretation Code Description Data April rce(s) Supporting Document(s) ID Date Data Source [id number] 07/30/2020 10:24:00 AM EDT [facility] Name Value Range Interpretation Code Description Data April rce(s) Supporting Document(s) VITAMIN D 25 41 ng/mL 30-100 [facility] ID Date Data Source [id number] 07/30/2020 08:51:00 AM EDT [facility] Name Value Range Interpretation Code Description Data April rce(s) Supporting Document(s) URINE COLOR Yellow [facility] UAPR Clear [facility] UGLU Negative NEGATIVE [facility] URINE BILIRUBIN Negative [facility]GATIVE [facility] Negative NEGATIVE [facility] USG 1.020 1.010-1.025 [facility] UBLO Negative NEGATIVE [facility] UpH 5.0 5.0-8.0 [facility] UPRO Negative Negative [facility] UUB 0.2 mg/dL 0.2-1.0 [facility] UNIT Negative Negative [facility] ULEU 2+ Negative [facility] ID Date Data Source [id number] 07/30/2020 08:51:00 AM EDT [facility] Name Value Range Interpretation Code Description Data April rce(s) Supporting Document(s) URINE RBC None Seen NONE SEEN [facility] URINE WBC 6-10 WBCs/HPF NONE SEEN [facility] A URINE CULTURE HAS BEEN ADDED TO THIS S PECIMEN URINE BACTERIA Rare NONE SEEN [facility] l URINE EPI. Rare NONE SEEN [facility] ID Date Data Source [id number] 07/30/2020 08:47:00 AM EDT [facility] Name Value Range Interpretation Code Description Data April rce(s) Supporting Document(s) HbA1C 5.80 % 3.8-5.6 [facility] Suggested Diagnosis HbA1c% Diabet ic >/= 6.5Prediabetes 5.7%-6.4%Normal < 5.7% ID Date Data Source [id number] 07/30/2020 08:30:00 AM EDT [facility] Name Value Range Interpretation Code Description Data April rce(s) Supporting Document(s) CHOL 202 mg/dL 100-200 [facility] TRIG 83 mg/dL 30-190 [facility] HDL 62 mg/dL 35-80 [facility] LDL DIRECT 121 mg/dL 0-100 H [facility] VLDL 19 mg/dL 0-100 [facility] ID Date Data Source [id number] 07/30/2020 08:30:00 AM EDT [facility] Name Value Range Interpretation Code Description Data April rce(s) Supporting Document(s) GLU 106 mg/dL 70-110 [facility] Patients taking Sulfasalazine may have f alsely depressedGlucose levels. Patients taking Sulfapyridine may havefalsely elevated Glucose levels. Patients should be drawnfor Glucose before the initial administration of eitherdrug. BUN 17 mg/dL 7-23 [facility] CRE 0.794 mg/dL 0.500-1.300 [facility] GFR > 60 mL/min [facility] CHLORIDE 106 mmol/L 99-110 [facility] NA 143 mmol/L 136-147 [facility] POTASSIUM 4.5 mmol/L 3.5-5.1 [facility] TCO2 30 mmol/L 20-33 [facility] ANION GAP 11.5 10.0-20.0 [facility] CA 9.1 mg/dL 8.3-10.7 [facility] ALKALINE PHOS 105 U/L 45-117 [facility] TP 7.3 g/dL 6.0-7.8 [facility] ALB 3.8 g/dL 3.5-5.0 [facility] ESRD Dialysis patient Albumin reference range: 2.9-4.4 g/dL GL 3.5 g/dL 2.3-3.5 [facility] A/G 1.1 1.0-2.5 [facility] T. BILIRUBIN 0.6 mg/dL 0.1-1.1 [facility] Total Bilirubin is n ot recommended forpatients undergoing treatment with eltrombopag (Promacta)due to the potential for falsely elevated results. ALTI 18 U/L 6-54 [facility] Patients taking Sulfasalazine and/or Sul fapyridine may havefalsely depressed ALT levels. Patients should be drawn forALT before the initial administration of either drug. AST 13 U/L 6-38 [facility] Patients taking Sulfasalazine and/or Sul fapyridine may havefalsely depressed AST levels. Patients should be drawn forAST before the initial administration of either drug. ID Date Data Source [id number] 07/30/2020 07:37:00 AM EDT [facility] Name Value Range Interpretation Code Description Data April rce(s) Supporting Document(s) WBC 9.07 x10E3/uL 4.0-10.5 [facility] RBC 4.84 x10E6/uL 4.20-5.40 [facility] Hemoglobin 13.6 g/dL 12.0-16.0 [facility] Hematocrit 42.7 % 37.0-47.0 [facility] MCV 88.2 fL 81.0-99.0 [facility] MCH 28.1 pg 27.0-31.0 [facility] MCHC 31.9 g/dL 32.7-35.6 L [facility] RDW 13.1 % 11.5-14.0 [facility] Platelet count 336 x10E3/uL 150-450 [facility] ital MPV 10.0 fl 6.9-9.5 H [facility] Neutrophils 64.2 % 34-64 H [facility] Lymphocytes 25.2 % 25-45 [facility] Monocytes 6.9 % 1.7-10.6 [facility] Eosin[facility] 2.4 % 0.4-7.0 N [facility] Basophils 0.7 % 0.1-2.0 N [facility] Imm. Gran. 0.6 % 0.1-2.0 N [facility] Abs. Neutro. 5.82 x10E3/uL 1.2-7.6 N [facility] Abs. Lymph. 2.29 x10E3/uL 1.0-3.5 N [facility] Abs. Taylor. 0.63 x10E3/uL 0.1-1.0 N [facility] Abs. Eosin. 0.22 x10E3/uL 0.1-0.7 [facility] Abs. Baso. 0.06 x10E3/uL 0.0-0.1 N [facility] Abs. Imm. Gran. 0.05 x10E3/uL 0.0-0.1 N [facility] ANRBC% 0 % 0 N [facility] ID Date Data Source [id number] 06/26/2020 09:21:00 AM EDT [facility] Exam Number: [id number] OF EXAMINATIO N: 06/26/2020 7:43 EDTMRI LOWER [...] rce(s) Supporting Document(s) ID Date Data Source [id number] 05/27/2020 09:06:00 PM EDT [facility] Performed at: RN - [facility] [place] [id number] Director: Stephany Givens MD, Phone: [phone] Name Value Range Interpretation Code Description Data April rce(s) Supporting Document(s) H.PYLORI AG EIA Negative Negative N [facility] ID Date Data Source [id number] 02/27/2020 02:11:00 PM EDT [facility] Exam Number: [id number] OF EXAMINATIO N: 02/26/2020 9:01 EDTORTHO KNEE [...] rce(s) Supporting Document(s) ID Date Data Source [id number] 02/21/2020 11:27:00 AM EDT [facility] Name Value Range Interpretation Code Description Data April rce(s) Supporting Document(s) GLU 97 mg/dL 70-110 [facility] Patients taking Sulfasalazine may have f alsely depressedGlucose levels. Patients taking Sulfapyridine may havefalsely elevated Glucose levels. Patients should be drawnfor Glucose before the initial administration of eitherdrug. BUN 19 mg/dL 7-23 [facility] CRE 0.737 mg/dL 0.500-1.300 [facility] GFR > 60 mL/min [facility] CHLORIDE 106 mmol/L 99-110 [facility] NA 143 mmol/L 136-147 [facility] POTASSIUM 4.8 mmol/L 3.5-5.1 [facility] TCO2 31 mmol/L 20-33 [facility] ANION GAP 10.8 10.0-20.0 [facility] CA 8.5 mg/dL 8.3-10.7 [facility] ALKALINE PHOS 97 U/L 45-117 [facility] TP 7.3 g/dL 6.0-7.8 [facility] ALB 3.9 g/dL 3.5-5.0 [facility] ESRD Dialysis patient Albumin reference range: 2.9-4.4 g/dL GL 3.4 g/dL 2.3-3.5 [facility] A/G 1.1 1.0-2.5 [facility] T. BILIRUBIN 0.6 mg/dL 0.1-1.1 [facility] Total Bilirubin is n ot recommended forpatients undergoing treatment with eltrombopag (Promacta)due to the potential for falsely elevated results. ALTI 31 U/L 6-54 [facility] Patients taking Sulfasalazine and/or Sul fapyridine may havefalsely depressed ALT levels. Patients should be drawn forALT before the initial administration of either drug. AST 25 U/L 6-38 [facility] Patients taking Sulfasalazine and/or Sul fapyridine may havefalsely depressed AST levels. Patients should be drawn forAST before the initial administration of either drug. ID Date Data Source [id number] 02/21/2020 10:55:00 AM EDT [facility] Name Value Range Interpretation Code Description Data April rce(s) Supporting Document(s) WBC 8.69 x10E3/uL 4.0-10.5 [facility] RBC 4.79 x10E6/uL 4.20-5.40 [facility] Hemoglobin 13.5 g/dL 12.0-16.0 [facility] Hematocrit 42.9 % 37.0-47.0 [facility] MCV 89.6 fL 81.0-99.0 [facility] MCH 28.2 pg 27.0-31.0 N [facility] MCHC 31.5 g/dL 32.7-35.6 L [facility] RDW 13.4 % 11.5-14.0 N [facility] Platelet count 356 x10E3/uL 150-450 N [facility] ital MPV 10.1 fl 6.9-9.5 H [facility] Neutrophils 63.4 % 34-64 N [facility] Lymphocytes 24.4 % 25-45 L [facility] Monocytes 8.4 % 1.7-10.6 N [facility] Eosinophils 2.4 % 0.4-7.0 N [facility] Basophils 0.7 % 0.1-2.0 N [facility] Imm. Gran. 0.7 % 0.1-2.0 [facility] Abs. Neutro. 5.5 x10E3/uL 1.2-7.6 N [facility] Abs. Lymph. 2.1 x10E3/uL 1.0-3.5 N [facility] l Abs. Taylor. 0.7 x10E3/uL 0.1-1.0 N [facility] Abs. Eosin. 0.2 x10E3/uL 0.1-0.7 N [facility] Baso. 0.1 x10E3/uL 0.0-0.1 N [facility] Abs. Imm. Gran. 0.1 x10E3/uL 0.0-0.1 N [facility] pital ANRBC% 0 % 0 N [facility] ID Date Data Source [id number] 01/10/2020 10:44:00 AM EDT [facility] Name Value Range Interpretation Code Description Data April rce(s) Supporting Document(s) VITAMIN D 25 58 ng/mL 30-100 N [facility] ID Date Data Source [id number] 01/10/2020 10:03:00 AM EDT [facility] Name Value Range Interpretation Code Description Data April rce(s) Supporting Document(s) HgBA1C 6.10 % 4.2-6.3 N [facility] ID Date Data Source [id number] 01/10/2020 09:41:00 AM EDT [facility] Name Value Range Interpretation Code Description Data April rce(s) Supporting Document(s) USTSH 0.843 uIU/mL 0.270-4.200 [facility] Data Source [id number] 01/10/2020 09:18:00 AM [facility]T [facility] Name Value Range Interpretation Code Description Data April rce(s) Supporting Document(s) CHOL 173 mg/dL 100-200 [facility] TRIG 45 mg/dL 30-190 N [facility] HDL 58 mg/dL 35-80 [facility] LDL DIRECT 112 mg/dL 0-100 H [facility] VLDL 3 mg/dL 0-100 N [facility] ID Date Data Source [id number] 01/10/2020 09:18:00 AM EDT [facility] Name Value Range Interpretation Code Description Data April rce(s) Supporting Document(s) GLU 108 mg/dL 70-110 [facility] Patients taking Sulfasalazine may have f alsely depressedGlucose levels. Patients taking Sulfapyridine may havefalsely elevated Glucose levels. Patients should be drawnfor Glucose before the initial administration of eitherdrug. BUN 16 mg/dL 7-23 [facility] CRE 0.861 mg/dL 0.500-1.300 [facility] GFR > 60 mL/min [facility] CHLORIDE 107 mmol/L 99-110 [facility] NA 142 mmol/L 136-147 [facility] POTASSIUM 4.1 mmol/L 3.5-5.1 [facility] TCO2 30 mmol/L 20-33 [facility] ANION GAP 9.1 10.0-20.0 [facility] CA 8.7 mg/dL 8.3-10.7 [facility] ALKALINE PHOS 99 U/L 45-117 [facility] TP 7.2 g/dL 6.0-7.8 [facility] ALB 3.9 g/dL 3.5-5.0 [facility] ESRD Dialysis patient Albumin reference range: 2.9-4.4 g/dL GL 3.3 g/dL 2.3-3.5 [facility] A/G 1.2 1.0-2.5 [facility] T. BILIRUBIN 0.6 mg/dL 0.1-1.1 [facility] Total Bilirubin is n ot recommended forpatients undergoing treatment with eltrombopag (Promacta)due to the potential for falsely elevated results. ALTI 30 U/L 6-54 [facility] Patients taking Sulfasalazine and/or Sul fapyridine may havefalsely depressed ALT levels. Patients should be drawn forALT before the initial administration of either drug. AST 21 U/L 6-38 [facility] Patients taking Sulfasalazine and/or Sul fapyridine may havefalsely depressed AST levels. Patients should be drawn forAST before the initial administration of either drug. ID Date Data Source [id number] 01/10/2020 09:14:00 AM EDT [facility] Name Value Range Interpretation Code Description Data April rce(s) Supporting Document(s) URINE COLOR Yellow [facility] UAPR Clear [facility] UGLU Negative NEGATIVE [facility] URINE BILIRUBIN Negative [facility]GATIVE [facility] Negative NEGATIVE [facility] USG 1.023 1.010-1.025 [facility] UBLO Negative NEGATIVE [facility] UpH 5.5 5.0-8.0 [facility] UPRO Negative Negative [facility] UUB 0.2 mg/dL 0.2-1.0 [facility] UNIT Negative Negative [facility] ULEU 1+ Negative [facility] ID Date Data Source [id number] 01/10/2020 09:14:00 AM EDT [facility] Name Value Range Interpretation Code Description Data April rce(s) Supporting Document(s) URINE RBC None Seen NONE SEEN [facility] URINE WBC 0-5 WBCs/HPF NONE SEEN [facility] URINE BACTERIA Rare NONE SEEN [facility] l URINE EPI. Rare NONE SEEN [facility] ID Date Data Source [id number] 01/10/2020 09:10:00 AM EDT [facility] Name Value Range Interpretation Code Description Data April rce(s) Supporting Document(s) WBC 5.54 x10E3/uL 4.0-10.5 N [facility] RBC 4.71 x10E6/uL 4.20-5.40 N [facility] Hemoglobin 13.4 g/dL 12.0-16.0 [facility] Hematocrit 41.5 % 37.0-47.0 [facility] MCV 88.1 fL 81.0-99.0 N [facility] MCH 28.5 pg 27.0-31.0 N [facility] MCHC 32.3 g/dL 32.7-35.6 L [facility] RDW 13.5 % 11.5-14.0 N [facility] Platelet count 291 x10E3/uL 150-450 N [facility] ital MPV 9.7 fl 6.9-9.5 H [facility] Neutrophils 61.0 % 34-64 N [facility] Lymphocytes 18.2 % 25-45 L [facility] Monocytes 17.0 % 1.7-10.6 H [facility] Eosinophils 2.2 % 0.4-7.0 N [facility] Basophils 0.7 % 0.1-2.0 N [facility] Imm. Gran. 0.9 % 0.1-2.0 N [facility] Abs. Neutro. 3.4 x10E3/uL 1.2-7.6 N [facility] Abs. Lymph. 1.0 x10E3/uL 1.0-3.5 N [facility] Abs. Taylor. 0.9 x10E3/uL 0.1-1.0 N [facility] Abs. Eosin. 0.1 x10E3/uL 0.1-0.7 N [facility] Abs. Baso. 0.0 x10E3/uL 0.0-0.1 N [facility] Abs. Imm. Gran. 0.1 x10E3/uL 0.0-0.1 N [facility] pital ANRBC% 0 % 0 N [facility] ID Date Data Source [id number] 11/22/2019 11:32:00 AM EST [facility] Exam Number: [id number] OF EXAMINATIO N: 11/21/2019 10:02 ESTDIGITAL MAMMO JUAN ROUTINEHISTORY: ScreeningHistory of breast cancer.Comparison is made to prior study dated 11/12/2018.2-D bilateral digital mammogram in the CC and MLO planes wereperformed with supplemental 3-D tomosynthesis of both breasts.The images were analyzed through the latest version of the [employer] image[employer] Tables computer aided diagnosis system.The patient states that [...] rce(s) Supporting Document(s) ID Date Data Source [id number] 09/26/2019 05:39:00 PM EST [facility] Cc: Hannah Conduit EMAIL MARKETING COORDINATOR (AB) A. BI OPSY OF ANTRUM: - [...] SQUAMOUS MUCOSA, INTESTINAL METAPLASIA NOR DYSPLASIA. CODE/S: 66931 X3 . A. Received in formalin, labeled [...] A. BIOPSY OF ANTRUM: Immunohistochemistry performed at [facility] is interpreted by asfollows: -Helicobacter pylori - Negative -Positive and negative controls are adequate B. BIOPSY OF BODY: Immunohistochemistry performed at [facility] is interpreted by asfollows: -Helicobacter pylori - POSITIVE in very low concentration -Positive and negative controls are adequate CODE/S:97471 x2 . ADDENDUM SIGNED: Wen Gaines DO 09/26/19 Name Value Range Interpretation Code Description Data April rce(s) Supporting Document(s) CLINICAL HISTORY [facility] Slides reviewed. Diagnosis supported b y microscopic examination. REPORT SIGNED: Wen Gaines DO 09/24/19 ID Date Data Source [id number] 09/24/2019 03:33:00 PM EST [facility]c: Hannah Conway EMAIL MARKETING COORDINATOR (AB) A. BI OPSY OF ANTRUM: - [...] SQUAMOUS MUCOSA, INTESTINAL METAPLASIA NOR DYSPLASIA. CODE/S: 02735 X3 . A. Received in formalin, labeled [...] April rce(s) Supporting Document(s) CLINICAL HISTORY [facility] Slides reviewed. Diagnosis supported b y microscopic examination. REPORT SIGNED: Wen Gaines DO 09/24/19 ID Date Data Source [id number] 09/24/2019 03:26:00 AM EST [facility] [address] [id number] NAME: YANI RODRÍGUEZ#: [id number]: HERMAN MEDRANO MD ADM. DATE: 09/23/19PATIENT : 59 LOCATION: [facility] #: [id number] REPORTGIPatient Name: Yani RodríguezProcedure Date: 09/23/2019 10:04 AMMRN: [id number] of : 8Account Number: [id number]: [id number]: FemaleAttending MD: HERMAN MEDRANO [facility] SERVICESrocedure: Upper GI endoscopyIndications: Dyspepsia, Previously treated for [...] Helicobacter pylori testing.Wide Area Transepithelial Sampling (WATS-3D [place] Biopsy) was performedfor histology and samples sent [...] AMDICT: 09/23/19 1004TRANS:09/24/19 0326 HERMAN MEDRANO MDTRANS BY:ALIX SIGNED:TIME SIGNED:REPORT COPY TO: Name Value Range Interpretation Code Description Data April rce(s) Supporting Document(s) Procedure Social History Code Duration Value Status Description Data Source(s ) Smoking 10/21/2020 12:00:00 AM EST Never Smoker completed Never S moker eCW1 ([facility]) Smoking 10/02/2020 12:00:00 AM EST Never Smoker completed Never S moker eCW1 ([facility]) Smoking 10/02/2020 12:00:00 AM EST Never Smoker completed Never S moker eCW1 ([facility]) Smoking 10/02/2020 12:00:00 AM EST Never Smoker completed Never S moker eCW1 ([facility]) Smoking 10/02/2020 12:00:00 AM EST Never Smoker completed Never S moker eCW1 ([facility]) Smoking 10/01/2020 12:00:00 AM EST Never Smoker completed Never S moker eCW1 ([facility]) Smoking 10/01/2020 12:00:00 AM EST Never Smoker completed Never S moker eCW1 ([facility]) Smoking 10/01/2020 12:00:00 AM EST Never Smoker completed Never S moker eCW1 ([facility]) Smoking 09/16/2020 12:00:00 AM EST Never Smoker completed Never S moker eCW1 ([facility]) Smoking 09/16/2020 12:00:00 AM EST Never Smoker completed Never S moker eCW1 ([facility]) Smoking 09/16/2020 12:00:00 AM EST Never Smoker completed Never S moker eCW1 ([facility]) Smoking 09/16/2020 12:00:00 AM EST Never Smoker completed Never S moker eCW1 ([facility]) Smoking 09/16/2020 12:00:00 AM EST Never Smoker completed Never S moker eCW1 ([facility]) Smoking 09/16/2020 12:00:00 AM EST Never Smoker completed Never S moker eCW1 ([facility]) Smoking 09/16/2020 12:00:00 AM EST Never Smoker completed Never S moker eCW1 ([facility]) Smoking 09/03/2020 12:00:00 AM EST Never Smoker completed Never S moker eCW1 ([facility]) Smoking 09/03/2020 12:00:00 AM EST Never Smoker completed Never S moker eCW1 ([facility]) Smoking 09/03/2020 12:00:00 AM EST Never Smoker completed Never S moker eCW1 ([facility]) Smoking 09/03/2020 12:00:00 AM EST Never Smoker completed Never S moker eCW1 ([facility]) Smoking 07/29/2020 12:00:00 AM EDT Never Smoker completed Never S moker eCW1 ([facility]) Smoking 07/29/2020 12:00:00 AM EDT Never Smoker completed Never S moker eCW1 ([facility]) Smoking 07/29/2020 12:00:00 AM EDT Never Smoker completed Never S moker eCW1 ([facility]) Smoking 07/29/2020 12:00:00 AM EDT Never Smoker completed Never S moker eCW1 ([facility]) Smoking 07/29/2020 12:00:00 AM EDT Never Smoker completed Never S moker eCW1 ([facility]) Smoking 07/02/2020 12:00:00 AM EDT Never Smoker completed Never S moker eCW1 ([facility]) Smoking 05/22/2020 12:00:00 AM EDT Never Smoker completed Never S moker eCW1 ([facility]) Smoking 05/22/2020 12:00:00 AM EDT Never Smoker completed Never S moker eCW1 ([facility]) Smoking 05/22/2020 12:00:00 AM EDT Never Smoker completed Never S moker eCW1 ([facility]) Smoking 05/22/2020 12:00:00 AM EDT Never Smoker completed Never S moker eCW1 ([facility]) Smoking 02/26/2020 12:00:00 AM EDT Never Smoker completed Never S moker eCW1 ([facility]) Smoking 02/26/2020 12:00:00 AM EDT Never Smoker completed Never S moker eCW1 ([facility]) Smoking 02/26/2020 12:00:00 AM EDT Never Smoker completed Never S moker eCW1 ([facility]) Smoking 02/26/2020 12:00:00 AM EDT Never Smoker completed Never S moker eCW1 ([facility]) Vital Signs ID Date Data Source UNK Name Value Range Interpretation Code Description Data Source(s) Diastolic blood pressure 78 mm[Hg] 78 mm[Hg] eCW1 ([facility]) Systolic blood pressure 138 mm[Hg] 138 mm[Hg] e CW1 ([facility]) Oxygen saturation in Arterial blood by Pulse oximetry 98 % 98 % eCW1 ([facility]) Respiratory rate 18 /min 18 /min eCW1 ([facility]) Heart rate 83 /min 83 /min W1 ([facility]) Body temperature 97.8 [degF] 97.8 [degF] eCW1 ( [facility]) Body mass index (BMI) [Ratio] 41.45 kg/m2 41.45 kg/m2 eCW1 ([facility]) Body weight 106.14 kg 106.14 kg W1 ([facility]) Body weight 234 [lb_av] 234 [lb_av] eCW1 ([facility]) Body height 63 [in_i] 63 [in_i] W1 ([facility]) Diastolic blood pressure 68 mm[Hg] 68 mm[Hg] eCW1 ([facility]) Systolic blood pressure 124 mm[Hg] 124 mm[Hg] e CW1 ([facility]) Body temperature 97.3 [degF] 97.3 [degF] eCW1 ( [facility]) Respiratory rate 18 /min 18 /min eCW1 ([facility]) Heart rate 97 /min 97 /min eCW1 [facility] Body mass index (BMI) [Ratio] 39.20 kg/m2 39.20 kg/m2 eCW1 ([facility]) Body height 65 [in_i] 65 [in_i] eCW1 ([facility]) Body weight 235.6 [lb_av] 235.6 [lb_av] eCW1 ([facility]) Diastolic blood pressure 60 mm[Hg] 60 mm[Hg] eCW1 ([facility]) Systolic blood pressure 120 mm[Hg] 120 mm[Hg] e CW1 ([facility]) Oxygen saturation in Arterial blood by Pulse oximetry 99 % 99 % eCW1 ([facility]) Respiratory rate 18 /min 18 /min eCW1 ([facility]) Heart rate 82 /min 82 /min eCW1 ([facility]) Body temperature 97.7 [degF] 97.7 [degF] eCW1 ( [facility]) Body mass index (BMI) [Ratio] 41.80 kg/m2 41.80 kg/m2 eCW1 ([facility]) Body weight 236 [lb_av] 236 [lb_av] eCW1 ([facility]) Body height 63 [in_i] 63 [in_i] eCW1 ([facility]) Diastolic blood pressure 78 mm[Hg] 78 mm[Hg] eCW1 ([facility]) Systolic blood pressure 158 mm[Hg] 158 mm[Hg] e CW1 ([facility]) Oxygen saturation in Arterial blood by Pulse oximetry 95 % 95 % eCW1 ([facility]) Heart rate 94 /min 94 /min eCW1 ([facility]) Body temperature 96 [degF] 96 [degF] eCW1 ([facility]) Body mass index (BMI) [Ratio] 42.33 kg/m2 42.33 kg/m2 eCW1 ([facility]) Body weight 239 [lb_av] 239 [lb_av] eCW1 ([facility]) Body height 63 [in_i] 63 [in_i] eCW1 ([facility]) Diastolic blood pressure 86 mm[Hg] 86 mm[Hg] eCW1 ([facility]) Systolic blood pressure 136 mm[Hg] 136 mm[Hg] e CW1 ([facility]) Oxygen saturation in Arterial blood by Pulse oximetry 98 % 98 % eCW1 ([facility]) Heart rate 78 /min 78 /min W1 ([facility]) Body temperature 97.8 [degF] 97.8 [degF] eCW1 ( [facility]) Body mass index (BMI) [Ratio] 42.65 kg/m2 42.65 kg/m2 eCW1 ([facility]) Body weight 109.23 kg 109.23 kg eCW1 ([facility]) Body weight 240.8 [lb_av] 240.8 [lb_av] eCW1 ([facility]) Body height 63 [in_i] 63 [in_i] eCW1 ([facility]) Diastolic blood pressure 88 mm[Hg] 88 mm[Hg] eCW1 ([facility]) Systolic blood pressure 130 mm[Hg] 130 mm[Hg] e CW1 ([facility]) Oxygen saturation in Arterial blood by Pulse oximetry 98 % 98 % eCW1 ([facility]) Heart rate 77 /min 77 /min eCW1 ([facility]) Body temperature 98.6 [degF] 98.6 [degF] eCW1 ( [facility]) Body mass index (BMI) [Ratio] 42.86 kg/m2 42.86 kg/m2 eCW1 ([facility]) Body weight 242 [lb_av] 242 [lb_av] eCW1 ([facility]) Body height 63 [in_i] 63 [in_i] eCW1 ([facility]) Diastolic blood pressure 84 mm[Hg] 84 mm[Hg] eCW1 ([facility]) Systolic blood pressure 130 mm[Hg] 130 mm[Hg] e CW1 ([facility]) Oxygen saturation in Arterial blood by Pulse oximetry 98 % 98 % eCW1 ([facility]) Heart rate 94 /min 94 /min eCW1 ([facility]) Body temperature 97.5 [degF] 97.5 [degF] eCW1 ( [facility]) Body mass index (BMI) [Ratio] 42.86 kg/m2 42.86 kg/m2 eCW1 ([facility]) Body weight 242 [lb_av] 242 [lb_av] eCW1 ([facility]) Body height 63 [in_i] 63 [in_i] eCW1 ([facility]) Diastolic blood pressure 76 mm[Hg] 76 mm[Hg] eCW1 ([facility]) Systolic blood pressure 128 mm[Hg] 128 mm[Hg] e CW1 ([facility]) Deprecated Oxygen saturation in Capillary blood by Oximetry 98 % 98 % eCW1 ([facility]) Heart rate 192 /min 192 /min eCW1 ([facility]) Body temperature 98.6 [degF] 98.6 [degF] eCW1 ( [facility]) Body mass index (BMI) [Ratio] 42.86 kg/m2 42.86 kg/m2 eCW1 ([facility]) Body weight Measured 242 [lb_av] 242 [lb_av] eC W1 ([facility]) Body height 63 [in_us] 63 [in_us] eCW1 ([facility])
[2020-10-27] MEDS: DOCUSATE SODIUM 100MG CAPSULE PO SCH ×2 (16:02→20:56)
[2020-10-27] MEDS: ceFAZolin SOD 1 GM in D5W MINI-BAG PLUS 50 ML IV SCH (17:11)
[2020-10-27] MEDS: PERCOCET 5MG/325MG TAB PO PRN (22:21)
[2020-10-28] MEDS: ceFAZolin SOD 1 GM in D5W MINI-BAG PLUS 50 ML IV SCH (01:17)
[2020-10-28 02:00] VITALS: BP 118/55
[2020-10-28 06:00] VITALS: BP 116/61
[2020-10-28 06:22] LABS: HEMATOCRIT 38.1 % (36.0-47.0); MEAN CORPUSCULAR HEMOGLOBIN 28.6 pg (27.0-33.0); MEAN CORPUSCULAR HGB CONC 31.5 g/dl (32.0-36.5); MEAN CORPUSCULAR VOLUME 90.9 fl (80.0-96.0); PLATELET COUNT, AUTOMATED 265 10^3/uL (150-450); RED BLOOD COUNT 4.19 10^6/uL (4.00-5.40); WHITE BLOOD COUNT 10.3 10^3/uL (4.0-10.0)
[2020-10-28 06:58] LABS: BLOOD UREA NITROGEN 12 MG/DL (7-18); CALCIUM LEVEL 8.4 MG/DL (8.8-10.2); CARBON DIOXIDE LEVEL 29 MEQ/L (21-32); CHLORIDE LEVEL 107 MEQ/L (98-107); CREATININE FOR GFR 0.84 MG/DL (0.55-1.30); GLOMERULAR FILTRATION RATE > 60.0 (>45); GLUCOSE, FASTING 118 MG/DL (70-100); POTASSIUM SERUM 4.1 MEQ/L (3.5-5.1); SODIUM LEVEL 142 MEQ/L (136-145)
--- NOTE | 2020-10-28 07:47 | IPNPDOC ---
Subjective Review oF Systems Chief Complaint The patient is a 65-year-old female admitted with a reason for visit of Renal Mass. Events since Last Encounter No acute events o/n. Good pain control. No n/v. Passing flatus. Has not ambulated yet. No f/c/ns. Objective Physical Examination General Exam: Alert, Cooperative, No Acute Distress ABDOMEN EXAM: Soft, Tenderness (mild), Other (incisions clean/dry/intact; KRISTEN w/ serosanguinous output) Skin Exam: Nl turgor and temperature Neuro Exam: Normal Speech Psych Exam: Mental status NL, Mood NL Other physical findings catheter draining clear urine; KRISTEN w/ serosanguinous output Vital Signs/I&O Vital Signs Date Time Temp Pulse Resp B/P (MAP) Pulse Ox O2 Delivery O2 Flow Rate FiO2 10/28/20 02:00 97.4 59 13 118/55 (76) 97 NIPPV (BIPAP/CPAP) 10/27/20 22:21 2.0 l I&O- Last 24 Hours up to 6 AM 10/28/20 06:00 Intake Total 7335 ml Output Total 2940 ml Balance 4395 ml Laboratory Data Labs 24H Laboratory Tests 2 10/27/20 13:50: Nucleated Red Blood Cells % (auto) 0.0, Anion Gap 4L, Glomerular Filtration Rate > 60.0, Calcium Level 8.5L 10/28/20 06:11: Nucleated Red Blood Cells % (auto) 0.0 10/28/20 06:12: Anion Gap 6L, Glomerular Filtration Rate > 60.0, Calcium Level 8.4L CBC/BMP Laboratory Tests 10/27/20 13:50 10/28/20 06:11 10/28/20 06:12 Assessment/Plan Date Seen The patient was seen on 10/28/20. Patient Summary This is a 65 y/o F POD1 s/p R robotic partial nephrectomy and lap ANITA. She is doing well. Hb stable at 12. Cr 0.8. Good UOP. Normal KRISTEN output. Plan/VTE VTE Prophylaxis Ordered?: Yes VTE Exclusion Mechanical Proph: N/A:VTE Prophy Ordered Plan/Urinary Catheter Urinary Catheter: D/C [facility] Plan - d/c [facility] - d/c IVF - percocet prn pain - cont home meds - strict I/Os - SCDs in bed - ambulate - incentive spirometry - advance diet as tolerated - possible discharge home this afternoon MENG LAWRENCE MD Oct 28, 2020 07:46
[2020-10-28] MEDS: DOCUSATE SODIUM 100MG CAPSULE PO SCH (08:01)
[2020-10-28] MEDS: PERCOCET 5MG/325MG TAB PO PRN ×2 (08:03→15:58)
[2020-10-28] MEDS ORDERED: OMEPRAZOLE 20 MG CAP PO SCH (09:00)
[2020-10-28] MEDS ORDERED: hydroCHLOROthiazide 12.5 MG CAPSULE PO SCH (09:00)
[2020-10-28 10:00] VITALS: BP 112/59
[2020-10-28 14:00] VITALS: BP 102/58
[2020-10-28] MEDS ORDERED: DOK1CAP7 PO (14:37)
[2020-10-28] MEDS ORDERED: PERCOCET PO (14:37)
--- NOTE | 2020-10-29 14:42 | DSES ---
DISCHARGE SUMMARY DATE OF ADMISSION: 10/27/2020 DATE OF DISCHARGE: 10/28/2020 ADMISSION DIAGNOSIS: Right renal neoplasm. DISCHARGE DIAGNOSIS: Right renal cell carcinoma. ADMITTING PHYSICIAN: Reese Guerrero MD DISCHARGE PHYSICIAN: Reese Guerrero MD PROCEDURE PERFORMED: Right robotic-assisted laparoscopic partial nephrectomy and laparoscopic lysis of adhesions on October 27, 2020. HISTORY OF PRESENT ILLNESS: This is a 65-year-old female who was found to have an enhancing 2 cm solid lesion in her right kidney concerning for malignancy. She was brought to the operating room for the above-listed procedure and admitted to the hospital postoperatively. HOSPITALIZATION COURSE: The patient was admitted to the hospital after undergoing the above-listed procedure. Her postoperative course was unremarkable. Her lab work throughout her hospital stay was within normal limits. Her hemoglobin level remained stable at around 12. Her serum creatinine was stable at 0.8. She had excellent urine output. Her Orantes catheter was removed the morning on postoperative day one and she voided without any difficulty. Her Sid-Foster drain had minimal output throughout her hospital stay. By the afternoon of postoperative day one she was ambulating well with good pain control on oral pain medication. Her diet was advanced and she was tolerating a regular diet. She was deemed ready for discharge home by the afternoon of postoperative day one. Her Sid-Foster drain was removed. She was discharged home with a plan for her to followup in the [facility] in approximately one to two weeks for a postoperative check and to discuss her pathology results. RYNE
== END 2020-10-28 18:15 | disposition home or self-care (01) | DRG 461 ==
LOC: M SDC 06:56 → EDUNIT# 14:15 → M SDC 15:15 → M MSPAV 15:15
PROVIDERS: ADMIT Urology; ATTEND Urology
PROC: 8E0W4CZ Robotic Assisted Procedure of Trunk Region, Percutaneous Endoscopic Approach (ICD-10-PCS; 2020-10-27)
PROC: 0TB34ZX Excision of Right Kidney Pelvis, Percutaneous Endoscopic Approach, Diagnostic (ICD-10-PCS; principal; 2020-10-27 08:30)
DX: C64.1 Malignant neoplasm of right kidney, except renal pelvis (principal); I10 Essential (primary) hypertension; Z79.899 Other long term (current) drug therapy; E78.5 Hyperlipidemia, unspecified; Z79.82 Long term (current) use of aspirin; K21.9 Gastro-esophageal reflux disease without esophagitis; E66.9 Obesity, unspecified; E55.9 Vitamin D deficiency, unspecified; F41.9 Anxiety disorder, unspecified; M19.90 Unspecified osteoarthritis, unspecified site